=== PATIENT | female | born 1930 | race Caucasian/White ===

== ENCOUNTER → 2017-02-06 | Outpatient (CLI) | payer MEDICARE | LOC: MW.CHIM 10:46 | PROVIDERS: ATTEND Internal Medicine | DX: R00.2 Palpitations (principal); I42.9 Cardiomyopathy, unspecified; E78.5 Hyperlipidemia, unspecified; E03.9 Hypothyroidism, unspecified | CPT/HCPCS: 99204 ==

== ENCOUNTER → 2017-02-18 | Outpatient (CLI) | payer MEDICARE ==
--- NOTE | 2017-02-20 14:12 | ECHO ---
EXAM DATE: 02/18/17 The echocardiogram report can be seen in this patient's EMR (Electronic Medical Record) in the Reports section. MESFIN
== END ==
LOC: MW.US 09:40
PROVIDERS: ATTEND Internal Medicine
DX: I42.9 Cardiomyopathy, unspecified (principal); R00.2 Palpitations
CPT/HCPCS: 93306

== ENCOUNTER → 2017-02-20 | Outpatient (CLI) | payer MEDICARE ==
--- NOTE | 2017-02-20 11:04 | PCM.PRNOTE ---
- Free Text/Narrative Note: Lexiscan Indication chest pain Patient was supervised today during infusion portion of the stress test. The patient received Regadenoson 0.4 mg IV and nuclear agent using standard protocol. Sestamibi Tm99 25 Mci was gievn afterwards Baseline blood pressure is 132/73 with a heart rate 77 EKG sinus rhythm without ST abnormalities Vital signs at injection: Peak blood pressure 139/65 with a heart rate of 93 Vital signs at 4 minutes post injection: Peak blood pressure 135/70 with a heart rate of 86 EKG sinus rhythm without further ST changes There was ectopic atrial rhythm, and PVCs after injection, and spontaneously converted to sinus rhythm Patient complains of SOB spontaneously resolved Adverse effects from Danette scan none Test done due to end of protocol Impression 1. electrocardiographically nondiagnostic for ischemia due to chemical protocol 2. nuclear imaging pending
--- NOTE | 2017-02-20 14:47 | NM ---
EXAMINATION: Nuclear medicine myocardial perfusion study HISTORY: Cardiomyopathy. PROCEDURE: Following intravenous administration of 0.4 mg of Lexiscan and 25.3 mCi of technetium 99m sestamib i, stress SPECT images including gating imaging was performed. FINDINGS: Stress myocardial SPECT images demonstrates mildly to moderately decreased perfusion along the infe rior wall from the midportion to the base. Review of gated images demonstrates normal wall motion, contractility and wall thickening. The left ventricular ejection fraction is 60 %. The left ventricular chamber size is normal. IMPRESSION: 1. Mildly to moderately decreased uptake within the midportion to base of the inferior wall. Correla te with rest imaging. 2. Normal ventricular chamber size and function with ejection fraction of 60 %.
== END ==
LOC: MW.NM 09:03
PROVIDERS: ATTEND Internal Medicine
DX: I42.9 Cardiomyopathy, unspecified (principal); R07.9 Chest pain, unspecified
CPT/HCPCS: 78451; 93017; A9500; J2785

== ENCOUNTER → 2017-02-21 | Outpatient (CLI) | payer MEDICARE | LOC: MW.CHIM 12:41 | PROVIDERS: ATTEND Internal Medicine | DX: I42.9 Cardiomyopathy, unspecified (principal); I42.8 Other cardiomyopathies | CPT/HCPCS: 36415; 80048; 83880 ==

== ENCOUNTER → 2017-02-27 | Outpatient (CLI) | payer MEDICARE ==
--- NOTE | 2017-03-06 12:11 | NM ---
REPORT ADDENDUM ADDENDUM: Additional imaging was obtained at rest following the administration of 27.1 mCi of technetium 99m labeled sestamibi. FINDINGS/IMPRESSION: The previously demonstrated decreased perfusion along the inferior wall is not as pronounced on rest imaging. However there is less adjacent hepatic activity on the rest imaging. Mild ischemia along the inferior wall towards the base cannot be excluded. Otherwise the perfusion pattern is similar. Wall motion and chamber size are similar with ejection fraction of 61%. Addendum Dictated by: Quinton Alberto MD <Electronically signed by Quinton Alberto MD in [facility]> 03/03/17 0852 8 8 EXAMINATION: Nuclear medicine myocardial perfusion study HISTORY: Cardiomyopathy. PROCEDURE: Following intravenous administration of 0.4 mg of Lexiscan and 25.3 mCi of technetium 99m sestamibi, stress SPECT images including gating imaging was performed. FINDINGS: Stress myocardial SPECT images demonstrates mildly to moderately decreased perfusion along the inferior wall from the midportion to the base. Review of gated images demonstrates normal wall motion, contractility and wall thickening. The left ventricular ejection fraction is 60 %. The left ventricular chamber size is normal. IMPRESSION: 1. Mildly to moderately decreased uptake within the midportion to base of the inferior wall. Correlate with rest imaging. 2. Normal ventricular chamber size and function with ejection fraction of 60 %. Dictated by: Quinton Alberto MD <Electronically signed by Quinton Alberto MD in [facility]> 02/20/17 at 1444 , 1443 144 Doc Number: [id number] Copies To: Paty Mack MD; PCP,None~ MTDD
== END ==
LOC: MW.NM 10:41
PROVIDERS: ATTEND Internal Medicine
DX: I42.9 Cardiomyopathy, unspecified (principal); R53.83 Other fatigue; R00.2 Palpitations; I10 Essential (primary) hypertension
CPT/HCPCS: 78451; 78451-26; G0463

== ENCOUNTER 2017-03-08 01:15 | Emergency (ER) | payer MEDICARE ==
[2017-03-08 01:27] VITALS: BP 140/77
--- NOTE | 2017-03-08 02:11 | EDM.PDOC ---
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 As it has some edema to his recent start on Lasix. She is taking the Lasix as she was concerned her potassium might below as a she drank some Gatorade. Patient has no skin changes no rash. No asymmetry of the legs. No fall or injury no acute joint pain. No fevers chills sweats or shaking chills. Patient otherwise feels well] Review of systems: As per history of present illness and below otherwise all systems reviewed and negative. Past medical history: As per history of present illness and as reviewed below otherwise noncontributory. Surgical history: As per history of present illness and as reviewed below otherwise noncontributory. Social history: No reported history of drug or alcohol abuse. Family history: As per history of present illness and as reviewed below otherwise noncontributory. Physical exam: HEENT: Normocephalic, atraumatic, pupils normal and symmetrical, supple neck, no meningismus, normal color Lungs: Normal and symmetrical chest wall excursion bilateral with no tachypnea or increased work of breathing, grossly normal chest exam Heart: No tachycardia in triage Abdomen: Normal-appearing, nondistended, no visible mass or asymmetry Pelvis: Normal-appearing Genitourinary: Deferred Rectal exam: Deferred Extremities: Atraumatic, normal use and range of motion, no visible evidence of gross neurovascular compromise Neuro: Awake, alert, oriented. Normal and appropriate mental status. Cranial nerves grossly unremarkable. Motor function normal. Nonfocal neurologic exam. Diagnostics: [Doppler bilateral lower extremities to rule out DVT] Basic metabolic panel pending to rule out electrolyte abnormality Therapeutics: [] Impression: [Bilateral leg pain. Chronic arthralgias] Plan: [Signs and symptoms consistent with exacerbation of chronic arthritis in a well- appearing patient is smiling perfectly groomed laughing and comfortable appearing. Her hair is perfectly coiffed. Patient is very social and gregarious smiling and laughing on exam. She has mild soft tissue tenderness in both calves but there is no asymmetry cords or skin changes. Baseline edema per patient, for which he is on Lasix. Doppler pending to rule out less likely possibility of DVT and basic met pending to rule out electrolyte abnormality. If unremarkable patient agrees with outpatient followup and strict return precautions will be given Definitive disposition and diagnosis as appropriate pending reevaluation and review of above. Bilateral Knee Pain Score (Numeric/FACES): 4 Right Shoulder Pain Score (Numeric/FACES): 4 - Related Data Allergies Allergy/AdvReac Type Severity Reaction Status Date / Time acetaminophen Allergy Cannot Verified 08/26/14 17:06 [From Darvocet-N 100] Remember azithromycin Allergy Dizziness Verified 03/08/17 01:27 cephalexin [Cephalexin] Allergy Cannot Verified 03/08/17 01:27 Remember fexofenadine Allergy Cannot Verified 03/08/17 01:27 Remember levofloxacin [From Levaquin] Allergy Cannot Verified 03/08/17 01:27 Remember lisinopril Allergy Cough Verified 03/08/17 01:27 methylprednisolone Allergy Other Verified 03/08/17 01:27 metoprolol Allergy Dizziness Verified 03/08/17 01:27 nitrofurantoin Allergy Other Verified 03/08/17 01:27 pravastatin sodium Allergy Cannot Verified 03/08/17 01:27 [From Pravachol] Remember propoxyphene napsylate Allergy Cannot Verified 03/08/17 01:27 [From Darvocet-N 100] Remember salsalate [Salsalate] Allergy Nausea Verified 08/26/14 17:06 solifenacin succinate Allergy Respiratory Verified 12/11/14 01:34 [From Vesicare] Depression Sulfa (Sulfonamide Allergy Cannot Verified 08/26/14 17:06 Antibiotics) Remember sulfamethoxazole Allergy Cannot Verified 08/26/14 17:06 Remember trimethoprim [From Septra] Allergy Mouth Sores Verified 08/26/14 17:06 Home Meds: Home Meds Aspirin 81 mg PO DAILY 02/21/14 [History] Black Cohosh Root Extract [Black Cohosh] 40 mg PO DAILY 02/21/14 [History] Diclofenac Sodium [Voltaren] 50 mg PO BIDPC 02/21/14 [History] Levothyroxine 150 mcg PO DAILY 02/21/14 [History] Omeprazole 20 mg PO DAILY 02/21/14 [History] atorvaSTATin [Lipitor] 20 mg PO BEDTIME 07/09/14 [History] Amoxicillin 250 cap PO BID 12/11/14 [History] Diltiazem [Cardizem] 180 mg PO DAILY 12/11/14 [History] Hydrochlorothiazide/Olmesartan [Benicar HCT 20-12.5 MG] 25 mg PO DAILY 12/11/14 [History] Metoprolol Succinate 50 mg PO DAILY 12/11/14 [History] Furosemide [Lasix] 20 mg PO DAILY #30 tablet 12/12/14 [Rx] Cranberry Extract [Cranberry] 4,200 mg PO DAILY 03/08/17 [History] Losartan [Cozaar] 25 mg PO DAILY 03/08/17 [History] Solifenacin Succinate [Vesicare] 10 mg PO DAILY 03/08/17 [History] Vit A/Vit C/Vit E/Zinc/Copper [Preservision] 1 tab PO BID 03/08/17 [History] cloNIDine [Catapres] 0.1 mg PO Q12HR PRN 03/08/17 [History] Past Medical History HEENT History: Reports: Impaired vision Other HEENT History: wears glasses Cardiovascular History: Reports: Heart Failure, Hypertension Other Cardiovascular History: CHF Musculoskeletal History: Reports: Osteoarthritis - Infectious Disease History Infectious Disease History: Reports: Chicken pox, Measles, Mumps Social & Family History - Family History Family Medical History: Noncontributory - Tobacco Use Smoking Status *Q: Never Smoker Years of Tobacco use: 40 Packs/Tins Daily: 0.5 Used Tobacco, but Quit: Yes Month Tobacco Last Used: 1989 Second Hand Smoke Exposure: No - Caffeine Use Caffeine Use: Reports: Coffee Caffeine Use Comment: 3cups/day - Alcohol Use Days Per Week of Alcohol Use: 0 - Recreational Drug Use Recreational Drug Use: No ED ROS GENERAL - Review of Systems Review Of Systems: See Below (Per history of present illness) ED EXAM, GENERAL - Physical Exam Exam: See Below (History of present illness) Course - Vital Signs Last Recorded V/S: Last Vital Signs Temp 36.6 C 03/08/17 01:22 Pulse 87 03/08/17 01:22 Resp 20 03/08/17 01:22 BP 140/77 03/08/17 01:22 Pulse Ox 95 03/08/17 01:22 - Orders/Labs/Meds Orders: Active Orders 24 hr Category Date Time Status Venous Doppler Lwr Ext Bi [US] Stat Exams 03/08/17 02:03 Taken Labs: Laboratory Tests 03/08/17 Range/Units 02:20 Sodium 135 L (136-146) mmol/L Potassium 3.4 L (3.5-5.1) mmol/L Chloride 99 (98-110) mmol/L Carbon Dioxide 24 (21-31) mmol/L BUN 23 (6.0-23.0) mg/dL Creatinine 0.9 (0.6-1.5) mg/dL Est Cr Clr Drug Dosing 32.23 mL/min Estimated GFR (MDRD) 59.4 ml/min Glucose 114 H (60-110) mg/dL Calcium 9.0 (8.8-10.8) mg/dL Meds: Medications Discontinued Medications Generic Name Dose Route Start Last Admin Trade Name Freq PRN Reason Stop Dose Admin Ibuprofen 600 mg 03/08/17 03:51 03/08/17 04:00 Motrin PO 03/08/17 03:52 600 mg ONETIME ONE Administration Potassium Chloride 40 meq 03/08/17 03:33 03/08/17 04:00 Klor-Con M20 PO 03/08/17 03:34 40 meq ONETIME ONE Administration Departure - Departure Time of Disposition: 04:01 Disposition: Home, Self-Care 01 Condition: good Clinical Impression: Chronic arthralgias of knees and hips, Lower extremity pain, Lower extremity edema Instructions: Joint Pain, Peripheral Edema Referrals: Isadora Cuba DO [Primary Care Provider] - Forms: ED Department Discharge Additional Instructions: You have mild edema of your legs which you've had before and for which you're prescribed Lasix. Electrolytes were unremarkable today. You do not have a blood clot in either leg. Rest and elevate your legs whenever possible. Continue Lasix as prescribed. Your potassium was slightly low today and begin he is single supplemental dose by mouth. Take ibuprofen as needed for joint aches and followup with your tomorrow. Return immediately for new severe or worsening symptoms. - My Orders Last 24 Hours: My Active Orders 03/08/17 02:03 Venous Doppler Lwr Ext Bi [US] Stat - Assessment/Plan Last 24 Hours: My Active Orders 03/08/17 02:03 Venous Doppler Lwr Ext Bi [US] Stat
[2017-03-08] MEDS ORDERED: Potassium Chloride 20 MEQ Tab.ER PO ONE (03:33)
[2017-03-08] MEDS ORDERED: Ibuprofen 600 MG Tab PO ONE (03:51)
--- NOTE | 2017-03-10 16:14 | US ---
EXAM DATE: 03/08/17 PATIENT'S AGE: 86 Patient: MAIDA ANDERSEN Facility: [place], [place] Site . Site : [id number] Study: US Extremity Venous BILAT [id number]/6/2017 3:18:48 AM Ordering Physician: Doctor Clements Final Report: INDICATION: BILAT LEG PAIN LEFT GREATER THAN RIGHT TECHNIQUE: Ultrasound venous duplex lower extremity bilateral. Compression venous exam was performed using melton scale, color Doppler, and spectral Doppler imaging. COMPARISON: None. FINDINGS: Sonographic imaging demonstrates the common femoral, deep femoral, superficial femoral, popliteal, posterior tibial and greater saphenous veins to be fully compressible with normal color Doppler blood flow in both lower extremities. IMPRESSION: Normal bilateral lower extremity venous ultrasound, no sign of deep venous thrombosis. Dictated by: Lg Domingo MD @ 03/08/2017 03:25:27 (Electronic Signature) Report Signed by Proxy. MESFIN
== END 2017-03-08 04:03 | disposition home or self-care (01) ==
LOC: MW.ED 01:15
DX: M25.562 Pain in left knee (principal); M25.552 Pain in left hip; M25.551 Pain in right hip; M25.561 Pain in right knee; G89.29 Other chronic pain; R60.0 Localized edema; I11.0 Hypertensive heart disease with heart failure; I50.9 Heart failure, unspecified; Z88.8 Allergy status to other drugs, medicaments and biological substances; Z79.82 Long term (current) use of aspirin; Z88.2 Allergy status to sulfonamides; Z88.1 Allergy status to other antibiotic agents; Z88.6 Allergy status to analgesic agent; Z79.899 Other long term (current) drug therapy
CPT/HCPCS: 36415; 80048; 93970; 99283; A9270

== ENCOUNTER → 2017-03-19 | Outpatient (CLI) | payer MEDICARE | LOC: MW.CHIM 08:00 | PROVIDERS: ATTEND Internal Medicine | DX: I42.9 Cardiomyopathy, unspecified (principal); E78.5 Hyperlipidemia, unspecified; I10 Essential (primary) hypertension | CPT/HCPCS: 99214 ==

== ENCOUNTER 2017-09-22 18:12 | Emergency (ER) | payer MEDICARE ==
--- NOTE | 2017-09-22 18:40 | EDM.PDOC ---
ED HPI GENERAL MEDICAL PROBLEM - General Chief Complaint: Genitourinary Problem Stated Complaint: PT HAS UTI Time Seen by Provider: 09/22/17 18:16 Source of Information: Reports: Patient History Limitations: Reports: No Limitations - History of Present Illness INITIAL COMMENTS - FREE TEXT/NARRATIVE: HISTORY AND PHYSICAL: History of present illness: Patient is a 87-year-old female who is brought to the emergency room by her son with complaints of dysuria, back pain, nausea, vomiting and decreased appetite as 24 hours. Patient has a long-standing history of UTIs which she is on a long- standing antibiotic. She reports one month ago she was in [place] and the provider took her off her antibiotic, reporting she was building resistance. Patient states that her symptoms are "spot on" with her normal UTI like symptoms. Review of systems: As per history of present illness and below otherwise all systems reviewed and negative. Past medical history: As per history of present illness and as reviewed below otherwise noncontributory. Surgical history: As per history of present illness and as reviewed below otherwise noncontributory. Social history: No reported history of drug or alcohol abuse. Family history: As per history of present illness and as reviewed below otherwise noncontributory. Physical exam: HEENT: Atraumatic, normocephalic, pupils reactive, negative for conjunctival pallor or scleral icterus, mucous membranes moist, throat clear, neck supple, nontender, trachea midline. Lungs: Clear to auscultation, breath sounds equal bilaterally, chest nontender. Heart: S1S2, regular, negative for clicks, rubs, or JVD. Abdomen: Soft, nondistended, suprapubic tenderness. Negative for masses or hepatosplenomegaly. Negative for costovertebral tenderness. Pelvis: Stable nontender. Genitourinary: Deferred. Rectal: Deferred. Extremities: Atraumatic, negative for cords or calf pain. Neurovascular unremarkable. Neuro: Awake, alert, oriented. Cranial nerves II through XII unremarkable. Cerebellum unremarkable. Motor and sensory unremarkable throughout. Exam nonfocal. Reviewed her labs with both the patient and the son at the bedside. We discussed treatment options of her pyelonephritis. As she does have a fever, elevated white count and nausea/vomiting I would like to keep the patient for observation and IV antibiotics. Currently we do not have any beds available to keep patients at our facility. Patient states she does not want to stay the night here or be transferred to any other facility. Strongly encouraged patient to allow us to transfer to [facility]. We discussed in great length possible risks of going home. She voices understanding and is willing to accept those risks. The son states that he will be in and out of her house frequently over the next couple days to watch her. Diagnostics: CBC, CMP, UA, urine culture Therapeutics: IV fluid and Zofran Impression: Pyelonephritis Plan: 1. You declined admission today. Please have your son come over frequently throughout the next couple days to monitor you. If your symptoms should worsen or not improve please return to the emergency room. 2. You received Zosyn today IV. A prescription has been given to you for Augmentin and Pyridium. It's important that you take these as prescribed and for its entirety. Make sure you are staying well-hydrated and drinking plenty of fluids. 3. Follow-up with your primary caregiver in the next 1-2 days. Return to the ED as needed and as discussed. Definitive disposition and diagnosis as appropriate pending reevaluation and review of above. Duration: Day(s): Location: Reports: Abdomen Back Pain Score (Numeric/FACES): 4 - Related Data Allergies Allergy/AdvReac Type Severity Reaction Status Date / Time acetaminophen Allergy Cannot Verified 08/26/14 17:06 [From Darvocet-N 100] Remember azithromycin Allergy Dizziness Verified 03/08/17 01:27 cephalexin [Cephalexin] Allergy Cannot Verified 03/08/17 01:27 Remember fexofenadine Allergy Cannot Verified 03/08/17 01:27 Remember levofloxacin [From Levaquin] Allergy Cannot Verified 03/08/17 01:27 Remember lisinopril Allergy Cough Verified 03/08/17 01:27 methylprednisolone Allergy Other Verified 03/08/17 01:27 metoprolol Allergy Dizziness Verified 03/08/17 01:27 nitrofurantoin Allergy Other Verified 03/08/17 01:27 pravastatin sodium Allergy Cannot Verified 03/08/17 01:27 [From Pravachol] Remember propoxyphene napsylate Allergy Cannot Verified 03/08/17 01:27 [From Darvocet-N 100] Remember salsalate [Salsalate] Allergy Nausea Verified 08/26/14 17:06 solifenacin succinate Allergy Respiratory Verified 12/11/14 01:34 [From Vesicare] Depression Sulfa (Sulfonamide Allergy Cannot Verified 08/26/14 17:06 Antibiotics) Remember sulfamethoxazole Allergy Cannot Verified 08/26/14 17:06 Remember trimethoprim [From Septra] Allergy Mouth Sores Verified 08/26/14 17:06 Home Meds: Home Meds Aspirin 81 mg PO DAILY 02/21/14 [History] Black Cohosh Root Extract [Black Cohosh] 40 mg PO DAILY 02/21/14 [History] Diclofenac Sodium [Voltaren] 50 mg PO BIDPC 02/21/14 [History] Levothyroxine 150 mcg PO DAILY 02/21/14 [History] Diltiazem IR [Cardizem] 180 mg PO DAILY 12/11/14 [History] Hydrochlorothiazide/Olmesartan [Benicar HCT 20-12.5 MG] 25 mg PO DAILY 12/11/14 [History] Metoprolol Succinate 50 mg PO DAILY 12/11/14 [History] Furosemide [Lasix] 20 mg PO DAILY #30 tablet 12/12/14 [Rx] Cranberry Extract [Cranberry] 4,200 mg PO DAILY 03/08/17 [History] Losartan [Cozaar] 25 mg PO DAILY 03/08/17 [History] Vit A/Vit C/Vit E/Zinc/Copper [Preservision] 1 tab PO BID 03/08/17 [History] cloNIDine [Catapres] 0.1 mg PO Q12HR PRN 03/08/17 [History] Past Medical History HEENT History: Reports: Impaired Vision Other HEENT History: wears glasses Cardiovascular History: Reports: Heart Failure, Hypertension Other Cardiovascular History: CHF Musculoskeletal History: Reports: Osteoarthritis - Infectious Disease History Infectious Disease History: Reports: Chicken Pox, Measles, Mumps Social & Family History - Family History Family Medical History: Noncontributory - Tobacco Use Smoking Status *Q: Never Smoker Years of Tobacco use: 40 Packs/Tins Daily: 0.5 Used Tobacco, but Quit: Yes Month Tobacco Last Used: 1989 Second Hand Smoke Exposure: No - Caffeine Use Caffeine Use: Reports: Coffee Caffeine Use Comment: 3cups/day - Alcohol Use Days Per Week of Alcohol Use: 0 - Recreational Drug Use Recreational Drug Use: No ED ROS GENERAL - Review of Systems Review Of Systems: ROS reveals no pertinent complaints other than HPI. ED EXAM, GI/ABD - Physical Exam Exam: See Below (See dictation) Course - Vital Signs Last Recorded V/S: Last Vital Signs Temp 37.5 C 09/22/17 21:20 Pulse 99 09/22/17 21:20 Resp 20 09/22/17 21:20 BP 136/60 09/22/17 21:20 Pulse Ox 88 L 09/22/17 21:20 - Orders/Labs/Meds Orders: Active Orders 24 hr Category Date Time Status RT Aerosol Therapy [RC] ASDIRECTED Care 09/22/17 20:57 Active CULTURE BLOOD [BC] Stat Lab 09/22/17 19:54 Received CULTURE BLOOD [BC] Stat Lab 09/22/17 20:25 Results CULTURE URINE [RM] Stat Lab 09/22/17 20:20 Received Blood Culture x2 Reflex Set [OM.PC] Stat Oth 09/22/17 19:44 Ordered Labs: Laboratory Tests 09/22/17 09/22/17 09/22/17 Range/Units 18:52 18:52 20:20 WBC 18.52 H (4.0-11.0) K/uL RBC 3.80 L (4.30-5.90) M/uL Hgb 12.0 (12.0-16.0) g/dL Hct 35.9 L (36.0-46.0) % MCV 94.5 (80.0-98.0) fL MCH 31.6 (27.0-32.0) pg MCHC 33.4 (31.0-37.0) g/dL RDW Std Deviation 60.1 (28.0-62.0) fl RDW Coeff of Tigre 18 H (11.0-15.0) % Plt Count 213 (150-400) K/uL MPV 9.30 (7.40-12.00) fL Add Manual Diff YES Neutrophils % (Manual) 90 H (48.0-80.0) % Band Neutrophils % 4 % Lymphocytes % (Manual) 3 L (16.0-40.0) % Monocytes % (Manual) 3 (0.0-15.0) % Nucleated RBC % 0.0 /100WBC Absolute Seg Neuts 16.7 H (1.4-5.7) Band Neutrophils # 0.7 Lymphocytes # (Manual) 0.6 (0.6-2.4) Monocytes # (Manual) 0.6 (0.0-0.8) Nucleated RBCs # 0 K/uL Sodium 132 L (136-146) mmol/L Potassium 3.9 (3.5-5.1) mmol/L Chloride 98 (98-110) mmol/L Carbon Dioxide 26 (21-31) mmol/L BUN 18 (6.0-23.0) mg/dL Creatinine 0.8 (0.6-1.5) mg/dL Est Cr Clr Drug Dosing 35.59 mL/min Estimated GFR (MDRD) > 60.0 ml/min Glucose 109 (60-110) mg/dL Calcium 8.9 (8.8-10.8) mg/dL Total Bilirubin 0.9 (0.1-1.5) mg/dL AST 11 (5-40) IU/L ALT 11 (8-54) IU/L Alkaline Phosphatase 116 (40-150) Total Protein 6.2 (6.0-8.0) g/dL Albumin 3.0 L (3.4-4.8) g/dL Globulin 3.2 (2.0-3.5) g/dL Albumin/Globulin Ratio 0.9 L (1.3-2.8) Urine Color YELLOW Urine Appearance SLT CLOUDY Urine pH 6.0 (5.0-8.0) Ur Specific [place] 1.010 (1.001-1.035) Urine Protein NEGATIVE (NEGATIVE) mg/dL Urine Glucose (UA) NEGATIVE (NEGATIVE) mg/dL Urine Ketones NEGATIVE (NEGATIVE) mg/dL Urine Occult Blood MODERATE (NEGATIVE) Urine Nitrite POSITIVE H (NEGATIVE) Urine Bilirubin NEGATIVE (NEGATIVE) Urine Urobilinogen 0.2 (<2.0) EU/dL Ur Leukocyte Esterase MODERATE (NEGATIVE) Urine RBC 1-2 (0-2/HPF) Urine WBC 30-40 (0-5/HPF) Ur Epithelial Cells FEW (NONE-FEW) Urine Bacteria 2+ H (NEGATIVE) Meds: Medications Discontinued Medications Generic Name Dose Route Start Last Admin Trade Name Freq PRN Reason Stop Dose Admin Albuterol 2.5 mg 09/22/17 20:56 09/22/17 21:07 Proventil Neb Soln NEB 09/22/17 20:57 Not Given ONETIME ONE Sodium Chloride 1,000 mls @ 999 mls/hr 09/22/17 18:43 09/22/17 19:29 Normal Saline IV 09/22/17 19:43 999 mls/hr STAT ONE Administration Piperacillin Sod/Tazobactam 50 mls @ 100 mls/hr 09/22/17 21:05 09/22/17 21:19 Sod 3.375 gm/ Sodium Chloride IV 09/22/17 21:34 100 mls/hr ONETIME ONE Administration Ibuprofen 400 mg 09/22/17 21:08 09/22/17 21:28 Motrin PO 09/22/17 21:09 400 mg ONETIME ONE Administration Ketorolac Tromethamine 30 mg 09/22/17 19:43 09/22/17 20:13 Toradol IVPUSH 09/22/17 19:44 30 mg ONETIME ONE Administration Ondansetron HCl 4 mg 09/22/17 18:43 09/22/17 19:29 Zofran IVPUSH 09/22/17 18:44 4 mg ONETIME ONE Administration Departure - Departure Time of Disposition: 21:59 Disposition: Home, Self-Care 01 Clinical Impression: Pyelonephritis - Discharge Information Instructions: Pyelonephritis, Adult, [id number] Referrals: PCP,None [Primary Care Provider] - Forms: ED Department Discharge Additional Instructions: My general discharge The following information is given to patients seen in the emergency department who are being discharged to home. This information is to outline your options for follow-up care. We provide all patients seen in our emergency department with a follow-up referral. The need for follow-up, as well as the timing and circumstances, are variable depending upon the specifics of your emergency department visit. If you don't have a primary care physician on staff, we will provide you with a referral. We always advise you to contact your personal physician following an emergency department visit to inform them of the circumstance of the visit and for follow-up with them and/or the need for any referrals to a consulting specialist. The emergency department will also refer you to a specialist when appropriate. This referral assures that you have the opportunity for follow-up care with a specialist. All of these measure are taken in an effort to provide you with optimal care, which includes your follow-up. Under all circumstances we always encourage you to contact your private physician who remains a resource for coordinating your care. When calling for follow-up care, please make the office aware that this follow-up is from your recent emergency room visit. If for any reason you are refused follow-up, please contact the [facility] Emergency Department at and asked to speak to the emergency department charge nurse. [facility] [address] [place] [id number] 1. You declined admission today. Please have your son come over frequently throughout the next couple days to monitor you. If your symptoms should worsen or not improve please return to the emergency room. 2. You received Zosyn today IV. A prescription has been given to you for Augmentin and Pyridium. It's important that you take these as prescribed and for its entirety. Make sure you are staying well-hydrated and drinking plenty of fluids. 3. Follow-up with your primary caregiver in the next 1-2 days. Return to the ED as needed and as discussed. - My Orders Last 24 Hours: My Active Orders 09/22/17 19:44 Blood Culture x2 Reflex Set [OM.PC] Stat 09/22/17 19:54 CULTURE BLOOD [BC] Stat 09/22/17 20:20 CULTURE URINE [RM] Stat 09/22/17 20:25 CULTURE BLOOD [BC] Stat - Assessment/Plan Last 24 Hours: My Active Orders 09/22/17 19:44 Blood Culture x2 Reflex Set [OM.PC] Stat 09/22/17 19:54 CULTURE BLOOD [BC] Stat 09/22/17 20:20 CULTURE URINE [RM] Stat 09/22/17 20:25 CULTURE BLOOD [BC] Stat
[2017-09-22] MEDS ORDERED: Sodium Chloride 0.9% 1,000 ML IV ONE (18:43)
[2017-09-22] MEDS ORDERED: Ondansetron 4 MG/2 ML SDV IVPUSH ONE (18:43)
[2017-09-22] MEDS ORDERED: Ketorolac 30 MG/ML SDV IVPUSH ONE (19:43)
[2017-09-22 19:47] LABS: CHLORIDE,CL 98 mmol/L (98-110); SODIUM,NA 132 mmol/L (136-146)
[2017-09-22] MEDS ORDERED: Albuterol 0.083% 2.5 MG/3 ML Neb Soln NEB ONE (20:56)
[2017-09-22] MEDS ORDERED: Piperacillin/Tazobactam 3.375 GM in Sodium Chloride 0.9% 50 ML IV ONE (21:05)
[2017-09-22] MEDS ORDERED: Ibuprofen 400 MG Tab PO ONE (21:08)
[2017-09-22 22:20] VITALS: BP 117/77
== END 2017-09-22 22:05 | disposition home or self-care (01) ==
LOC: MW.ED 18:12
DX: N12 Tubulo-interstitial nephritis, not specified as acute or chronic (principal); I11.0 Hypertensive heart disease with heart failure; I50.9 Heart failure, unspecified; Z88.1 Allergy status to other antibiotic agents; Z88.8 Allergy status to other drugs, medicaments and biological substances; Z88.2 Allergy status to sulfonamides; Z79.82 Long term (current) use of aspirin; Z79.899 Other long term (current) drug therapy; Z87.891 Personal history of nicotine dependence
CPT/HCPCS: 36415; 80053; 81001; 85025; 87040; 87086; 87186; 96361; 96365; 96375; 99284; A9270; J1885; J2405; J2543; J7040; J7050; 87077; 87088

== ENCOUNTER 2017-09-23 17:27 | Inpatient (IN) | payer MEDICARE ==
--- NOTE | 2017-09-23 19:35 | PCM.HP ---
H&P History of Present Illness - General Date of Service: 09/23/17 Source of Information: Patient, Old Records History Limitations: Reports: No Limitations - History of Present Illness Initial Comments - Free Text/Narative: Patient 87 years old female with past medical Hx of frequent UTI presented to Emergency Room yesterday due to dysuria , fever , chills , flank pain. In ER patient was found to have pyelonephritis and it was recommended patient admission ,but because there were no beds available patient needed transfer. She did not wanted to go to another facility and after she was given one dose of IV antibiotics she was discharged home with po Augmentin. Her symptoms improved today , her urine culture grew gram negative rods and patient was called home to come back to hospital for Iv antib treatment. Onset of Symptoms: Reports: Sudden Duration of Symptoms: Reports: Hour(s): Location: Reports: Abdomen, Pelvis Quality: Reports: Dull - Related Data Allergies/Adverse Reactions: Allergies Allergy/AdvReac Type Severity Reaction Status Date / Time acetaminophen Allergy Cannot Verified 08/26/14 17:06 [From Darvocet-N 100] Remember azithromycin Allergy Dizziness Verified 03/08/17 01:27 cephalexin [Cephalexin] Allergy Cannot Verified 03/08/17 01:27 Remember fexofenadine Allergy Cannot Verified 03/08/17 01:27 Remember levofloxacin [From Levaquin] Allergy Cannot Verified 03/08/17 01:27 Remember lisinopril Allergy Cough Verified 03/08/17 01:27 methylprednisolone Allergy Other Verified 03/08/17 01:27 metoprolol Allergy Dizziness Verified 03/08/17 01:27 nitrofurantoin Allergy Other Verified 03/08/17 01:27 pravastatin sodium Allergy Cannot Verified 03/08/17 01:27 [From Pravachol] Remember propoxyphene napsylate Allergy Cannot Verified 03/08/17 01:27 [From Darvocet-N 100] Remember salsalate [Salsalate] Allergy Nausea Verified 08/26/14 17:06 solifenacin succinate Allergy Respiratory Verified 12/11/14 01:34 [From Vesicare] Depression Sulfa (Sulfonamide Allergy Cannot Verified 08/26/14 17:06 Antibiotics) Remember sulfamethoxazole Allergy Cannot Verified 08/26/14 17:06 Remember trimethoprim [From Septra] Allergy Mouth Sores Verified 08/26/14 17:06 Home Medications: Home Meds Aspirin 81 mg PO DAILY 02/21/14 [History] Black Cohosh Root Extract [Black Cohosh] 40 mg PO DAILY 02/21/14 [History] Diclofenac Sodium [Voltaren] 50 mg PO BIDPC 02/21/14 [History] Levothyroxine 150 mcg PO DAILY 02/21/14 [History] Diltiazem IR [Cardizem] 180 mg PO DAILY 12/11/14 [History] Metoprolol Succinate 50 mg PO DAILY 12/11/14 [History] Losartan [Cozaar] 25 mg PO DAILY 03/08/17 [History] cloNIDine [Catapres] 0.1 mg PO Q12HR PRN 03/08/17 [History] Solifenacin Succinate [Vesicare] 10 mg PO DAILY 09/23/17 [History] atorvaSTATin [Lipitor] 20 mg PO BEDTIME 09/23/17 [History] Past Medical History HEENT History: Reports: Impaired Vision Other HEENT History: wears glasses Cardiovascular History: Reports: Heart Failure, Hypertension Other Cardiovascular History: CHF Respiratory History: Reports: None Gastrointestinal History: Reports: None Genitourinary History: Reports: None DIE CAST 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: Reports: None Musculoskeletal History: Reports: Osteoarthritis Neurological History: Reports: None Psychiatric History: Reports: None Endocrine/Metabolic History: Reports: Hypothyroidism Hematologic History: Reports: None Immunologic History: Reports: None Oncologic (Cancer) History: Reports: None Dermatologic History: Reports: None - Infectious Disease History Infectious Disease History: Reports: Chicken Pox, Measles - Past Surgical History Head Surgeries/Procedures: Reports: None Respiratory Surgical History: Reports: None GI Surgical History: Reports: None Female Surgical History: Reports: None Endocrine Surgical History: Reports: None Neurological Surgical History: Reports: None Musculoskeletal Surgical History: Reports: None Oncologic Surgical History: Reports: None Dermatological Surgical History: Reports: None Social & Family History - Family History Family Medical History: Noncontributory - Tobacco Use Smoking Status *Q: Never Smoker Years of Tobacco use: 40 Packs/Tins Daily: 0.5 Used Tobacco, but Quit: Yes Month Tobacco Last Used: 1989 Second Hand Smoke Exposure: No - Caffeine Use Caffeine Use: Reports: Coffee Caffeine Use Comment: 3cups/day - Alcohol Use Days Per Week of Alcohol Use: 0 - Recreational Drug Use Recreational Drug Use: No H&P Review of Systems - Review of Systems: Review Of Systems: See Below General: Reports: Fever, Chills, Weakness HEENT: Reports: No Symptoms Pulmonary: Reports: No Symptoms Cardiovascular: Reports: No Symptoms Gastrointestinal: Reports: No Symptoms Exam - Exam Exam: See Below - Vital Signs Vital Signs: Last Vital Signs Temp 97.7 F 09/23/17 18:27 Pulse 74 09/23/17 18:27 Resp 16 09/23/17 18:27 BP 122/56 L 09/23/17 18:27 Pulse Ox Weight: 129 lb 6.4 oz - Exam General: Alert, Oriented HEENT: Conjunctiva Clear, EOMI, Hearing Intact, Normal Nasal Septum Neck: Supple, Trachea Midline. No: JVD Lungs: Clear to Auscultation Cardiovascular: Regular Rate, Regular Rhythm, Normal S1, Normal S2, Diastolic Murmur GI/Abdominal Exam: Normal Bowel Sounds, Soft, Non-Tender, No Organomegaly, No Distention, No Abnormal Bruit Back Exam: CVA Tenderness (L) (more on the left), CVA Tenderness (R) Extremities: Normal Inspection Skin: Warm Neurological: Cranial Nerves Intact Psychiatric: Alert, Normal Affect - Patient Data Result Diagrams: 09/24/17 07:34 09/24/17 07:34 *Q Meaningful Use (ADM) - VTE *Q VTE Criteria *Q: - Stroke *Q Stroke Criteria *Q: - AMI *Q AMI Criteria *Q: - Problem List (1) Pyelonephritis SNOMED Code(s): 87772835 ICD Code: N12 - TUBULO-INTERSTITIAL NEPHRITIS, NOT SPCF ACUTE OR CHRONIC Status: Acute Current Visit: No (2) Hypothyroidism SNOMED Code(s): 14790647 ICD Code: E03.9 - HYPOTHYROIDISM, UNSPECIFIED Status: Chronic Current Visit: Yes (3) HTN, Essential hypertension SNOMED Code(s): 97588861 ICD Code: I10 - ESSENTIAL (PRIMARY) HYPERTENSION Status: Chronic Current Visit: No (4) Coffee ground emesis SNOMED Code(s): 721226286 ICD Code: K92.0 - HEMATEMESIS Status: Acute Current Visit: Yes Problem List Initiated/Reviewed/Updated: Yes Assessment/Plan Comment:: A/p 1) pyelonephritis - will start patient on Zosyn Iv 2.25 grams q 6 h , f/up urine culture final results and the sensitivity , iv fluids, f/up patient clinically , f/up WBC , f/up temperature 3)Coffee ground vomiting- d/c aspirin , no heparin, d/c diclofenac, protonix 40 mg iv q12h , Gi referral for endoscopy, monitor hb/ht 3)Hypothyroidism-will continue patient with levothyroxine 150 mcg q daily 4) HTN - controlled- cont current Bp meds( metoprolol xl 50 mg po daily , Cozaar , Clonidine, diltiazem) 4)HLP - continue atorvastatin 20 mg po daily 5)DVT prof:SCD
[2017-09-23] MEDS ORDERED: Sodium Chloride 0.9% 2.5 ML Syringe FLUSH PRN (20:01)
[2017-09-23] MEDS ORDERED: Sodium Chloride 0.9% 10 ML Syringe FLUSH PRN (20:01)
[2017-09-23] MEDS ORDERED: cloNIDine 0.1 MG Tab PO PRN (20:11)
[2017-09-23] MEDS: Piperacillin/Tazobactam 2.25 GM in Sodium Chloride 0.9% 100 ML IV SCH (20:49)
[2017-09-23] MEDS ORDERED: Heparin Sodium 5,000 Units/ML Vial SUBCUT SCH (21:00)
[2017-09-23] MEDS: atorvaSTATin 20 MG Tab PO SCH (21:01)
[2017-09-23 21:02] LABS: CHLORIDE,CL 100 mmol/L (98-110); SODIUM,NA 133 mmol/L (136-146)
[2017-09-23] MEDS: Sodium Chloride 0.45% 1,000 ML IV SCH (21:11)
[2017-09-23] MEDS: Pantoprazole 40 MG Vial IVPUSH SCH (21:18)
[2017-09-24] MEDS: Acetaminophen 325 MG Tab PO PRN (00:14)
[2017-09-24] MEDS: Piperacillin/Tazobactam 2.25 GM in Sodium Chloride 0.9% 100 ML IV SCH (02:50)
[2017-09-24] MEDS: Levothyroxine 150 MCG Tab PO SCH (06:33)
--- NOTE | 2017-09-24 07:29 | PCM.PN ---
- General Info Date of Service: 09/24/17 Admission Dx/Problem (Free Text): Pyelonephritis Subjective Update: Sitting up in chair this morning, eating breakfast. Denies chest pain or SOB. Has some L flank and L abdominal pain, Tylenol helps the pain. Feeling ok, a little malaise. Functional Status: Reports: Pain Controlled, Tolerating Diet, Ambulating, Urinating - Review of Systems General: Reports: Fatigue, Malaise HEENT: Denies: Headaches, Sore Throat Pulmonary: Reports: No Symptoms. Denies: Shortness of Breath, Cough, Sputum Cardiovascular: Reports: No Symptoms. Denies: Chest Pain, Edema Gastrointestinal: Reports: Abdominal Pain. Denies: Melena, Nausea, Vomiting Genitourinary: Reports: Frequency Neurological: Reports: No Symptoms. Denies: Confusion Psychiatric: Reports: No Symptoms. Denies: Confusion, Anxiety - Patient Data Vitals - Most Recent: Last Vital Signs Temp 99.7 F 09/24/17 04:00 Pulse 78 09/24/17 04:00 Resp 18 09/24/17 04:00 BP 116/54 L 09/24/17 04:00 Pulse Ox 93 L 09/24/17 04:00 Weight - Most Recent: 58.5 kg I&O - Last 24 Hours: Intake & Output 09/23/17 09/24/17 09/24/17 22:59 06:59 14:59 Intake Total 1028 Output Total 1250 Balance -222 Lab Results Last 24 Hours: Laboratory Results - last 24 hr 09/23/17 09/23/17 Range/Units 20:25 20:25 WBC 19.97 H (4.0-11.0) K/uL RBC 3.59 L (4.30-5.90) M/uL Hgb 11.3 L (12.0-16.0) g/dL Hct 33.9 L (36.0-46.0) % MCV 94.4 (80.0-98.0) fL MCH 31.5 (27.0-32.0) pg MCHC 33.3 (31.0-37.0) g/dL RDW Std Deviation 60.0 (28.0-62.0) fl RDW Coeff of Tigre 17 H (11.0-15.0) % Plt Count 195 (150-400) K/uL MPV 10.10 (7.40-12.00) fL Neut % (Auto) 91.7 H (48.0-80.0) % Lymph % (Auto) 3.4 L (16.0-40.0) % [place] % (Auto) 3.8 (0.0-15.0) % Eos % (Auto) 1.0 (0.0-7.0) % Baso % (Auto) 0.1 (0.0-1.5) % Neut # (Auto) 18.3 H (1.4-5.7) K/uL Lymph # (Auto) 0.7 (0.6-2.4) K/uL [place] # (Auto) 0.8 (0.0-0.8) K/uL Eos # (Auto) 0.2 (0.0-0.7) K/uL Baso # (Auto) 0.0 (0.0-0.1) K/uL Nucleated RBC % 0.0 /100WBC Nucleated RBCs # 0 K/uL Sodium 133 L (136-146) mmol/L Potassium 4.3 (3.5-5.1) mmol/L Chloride 100 (98-110) mmol/L Carbon Dioxide 24 (21-31) mmol/L BUN 19 (6.0-23.0) mg/dL Creatinine 0.8 (0.6-1.5) mg/dL Est Cr Clr Drug Dosing 35.59 mL/min Estimated GFR (MDRD) > 60.0 ml/min Glucose 94 (60-110) mg/dL Calcium 8.6 L (8.8-10.8) mg/dL Total Bilirubin 0.5 (0.1-1.5) mg/dL AST 9 (5-40) IU/L ALT 10 (8-54) IU/L Alkaline Phosphatase 114 (40-150) Total Protein 6.0 (6.0-8.0) g/dL Albumin 2.8 L (3.4-4.8) g/dL Globulin 3.2 (2.0-3.5) g/dL Albumin/Globulin Ratio 0.9 L (1.3-2.8) Med Orders - Current: Current Medications Acetaminophen (Tylenol) 650 mg PO Q4H PRN PRN Reason: Pain (Mild 1-3)/fever Last Admin: 09/24/17 00:14 Dose: 650 mg Albuterol (Proventil Neb Soln) 2.5 mg NEB Q2H PRN PRN Reason: Shortness Of Breath/wheezing Aspirin (Aspirin) 81 mg PO DAILY [facility] Atorvastatin Calcium (Lipitor) 20 mg PO BEDTIME [facility] Last Admin: 09/23/17 21:01 Dose: 20 mg Clonidine HCl (Catapres) 0.1 mg PO Q12HR PRN PRN Reason: Hypertension Diclofenac Sodium (Voltaren) 50 mg PO BIDMEALS [facility] Diltiazem HCl (Cardizem Cd) 180 mg PO DAILY [facility] Piperacillin Sod/Tazobactam (Sod 2.25 gm/ Sodium Chloride) 100 mls @ 25 mls/hr IV Q6H [facility] Last Admin: 09/24/17 02:50 Dose: 25 mls/hr Sodium Chloride (Sodium Chloride 0.45%) 1,000 mls @ 75 mls/hr IV ASDIRECTED [facility] Last Admin: 09/23/17 21:11 Dose: 75 mls/hr Levothyroxine Sodium (Levothyroxine) 150 mcg PO DAILY@0700 [facility] Last Admin: 09/24/17 06:33 Dose: 150 mcg Losartan Potassium (Cozaar) 25 mg PO DAILY [facility] Metoprolol Succinate (Toprol Xl) 50 mg PO DAILY [facility] Pantoprazole Sodium (Protonix Iv) 40 mg IVPUSH BID [facility] Last Admin: 09/23/17 21:18 Dose: 40 mg Vesicare 10 Mg 1 each PO DAILY [facility] Sodium Chloride (Saline Flush) 10 ml FLUSH ASDIRECTED PRN PRN Reason: Keep Vein Open Sodium Chloride (Saline Flush) 2.5 ml FLUSH ASDIRECTED PRN PRN Reason: Keep Vein Open Discontinued Medications Heparin Sodium (Porcine) (Heparin Sodium) 5,000 units SUBCUT Q12HR [facility] Last Admin: 09/23/17 22:10 Dose: Not Given - Exam General: Alert, Oriented, Cooperative, No Acute Distress Lungs: Clear to Auscultation, Normal Respiratory Effort Cardiovascular: Regular Rate, Regular Rhythm GI/Abdominal Exam: Normal Bowel Sounds, Soft, No Organomegaly, No Distention, No Abnormal Bruit, No Mass, Pelvis Stable, Tender (LUQ and L flank) Back Exam: CVA Tenderness (L) Extremities: Normal Inspection, Normal Range of Motion, Non-Tender, Normal Capillary Refill, Pedal Edema (scant ) Neurological: No New Focal Deficit Psy/Mental Status: Alert, Normal Affect, Normal Mood - Problem List & Annotations (1) Pyelonephritis SNOMED Code(s): 40228983 Code(s): N12 - TUBULO-INTERSTITIAL NEPHRITIS, NOT SPCF ACUTE OR CHRONIC Status: Acute Current Visit: No (2) Gram-negative bacteremia SNOMED Code(s): 250465243447 Code(s): R78.81 - BACTEREMIA Status: Acute Current Visit: Yes (3) CHF, Congestive heart failure SNOMED Code(s): 77468251 Code(s): I50.9 - HEART FAILURE, UNSPECIFIED Status: Chronic Current Visit : No (4) HTN, Essential hypertension SNOMED Code(s): 02531539 Code(s): I10 - ESSENTIAL (PRIMARY) HYPERTENSION Status: Chronic Current Visit: No (5) Hypothyroidism SNOMED Code(s): 68995706 Code(s): E03.9 - HYPOTHYROIDISM, UNSPECIFIED Status: Chronic Current Visit: Yes - Problem List Review Problem List Initiated/Reviewed/Updated: Yes - My Orders Last 24 Hours: My Active Orders 09/24/17 07:19 BMP [BASIC METABOLIC PANEL,BMP] [CHEM] Routine CBC WITH AUTO DIFF [HEME] Routine - Plan Plan:: This 87 year old female admitted with gram neg chucky bacteremia and pyelonephritis. 1. Pyelonephritis: Likely source of gram negative chucky bacteremia. BC still pending. UC returns with Klebsiella pneumoniae, sensitive to Zosyn, patient does not tolerate many antibiotics due to allergies. Will continue Zosyn for now. Leukocytosis improved to 15,450 today. Will await BC results. 2. HTN: Stable. Continue home medications 3. CHF: Stable Monitor weight closely. No c/o of SOB or edema. Continue home medications. VTE prophylaxis: SCDs only for now. Dispo: 2-3 days pending improvement and culture.
[2017-09-24] MEDS ORDERED: Diclofenac Sodium 50 MG Tab.EC PO SCH (08:00)
[2017-09-24 08:06] LABS: CHLORIDE,CL 102 mmol/L (98-110); SODIUM,NA 134 mmol/L (136-146)
[2017-09-24] MEDS: Piperacillin/Tazobactam 2.25 GM in Sodium Chloride 0.9% 50 ML IV SCH ×3 (08:38→20:49)
[2017-09-24] MEDS: Losartan 50 MG Tab PO SCH (08:39)
[2017-09-24] MEDS: Metoprolol Succinate 50 MG Tab.ER PO SCH (08:40)
[2017-09-24] MEDS: Diltiazem 180 MG Cap.CD PO SCH (08:41)
[2017-09-24] MEDS: Pantoprazole 40 MG Vial IVPUSH SCH ×2 (08:41→20:57)
[2017-09-24] MEDS ORDERED: Aspirin 81 MG Tab.Chew PO SCH (09:00)
[2017-09-24] MEDS: Sodium Chloride 0.45% 1,000 ML IV SCH (16:03)
[2017-09-24] MEDS: atorvaSTATin 20 MG Tab PO SCH (20:49)
[2017-09-25] MEDS: Piperacillin/Tazobactam 2.25 GM in Sodium Chloride 0.9% 50 ML IV SCH ×4 (02:36→19:22)
[2017-09-25 05:35] LABS: CHLORIDE,CL 104 mmol/L (98-110); SODIUM,NA 134 mmol/L (136-146)
[2017-09-25] MEDS: Levothyroxine 150 MCG Tab PO SCH (06:43)
[2017-09-25] MEDS: Sodium Chloride 0.45% 1,000 ML IV SCH ×2 (06:43→21:05)
[2017-09-25] MEDS: Pantoprazole 40 MG Vial IVPUSH SCH ×2 (08:44→21:08)
[2017-09-25] MEDS: Metoprolol Succinate 50 MG Tab.ER PO SCH (08:45)
[2017-09-25] MEDS: Losartan 50 MG Tab PO SCH (08:45)
[2017-09-25] MEDS: Diltiazem 180 MG Cap.CD PO SCH (08:49)
[2017-09-25] MEDS: Acetaminophen 325 MG Tab PO PRN (09:13)
[2017-09-25] MEDS ORDERED: Polyethylene Glycol 3350 Powder 17 GM Packet PO ONE (10:52)
[2017-09-25] MEDS ORDERED: Fluconazole 150 MG Tab PO ONE (11:00)
[2017-09-25] MEDS: Docusate Sodium 100 MG Cap PO SCH ×2 (11:41→21:11)
--- NOTE | 2017-09-25 16:21 | PCM.PN ---
- General Info Date of Service: 09/25/17 Admission Dx/Problem (Free Text): Pyelonephritis Subjective Update: Patient symptoms improved , afebrile ., still pain 2/10 in the left flank. Had last BM on . - Review of Systems General: Reports: No Symptoms HEENT: Reports: No Symptoms Pulmonary: Reports: No Symptoms Cardiovascular: Reports: No Symptoms Gastrointestinal: Reports: Constipation Genitourinary: Reports: Flank Pain Musculoskeletal: Reports: No Symptoms Skin: Reports: No Symptoms Neurological: Reports: No Symptoms Psychiatric: Reports: No Symptoms - Patient Data Vitals - Most Recent: Last Vital Signs Temp 99.2 F 09/25/17 12:00 Pulse 80 09/25/17 12:00 Resp 18 09/25/17 12:00 BP 137/97 H 09/25/17 12:00 Pulse Ox 91 L 09/25/17 12:00 Weight - Most Recent: 128 lb 4.944 oz I&O - Last 24 Hours: Intake & Output 09/25/17 09/25/17 09/25/17 06:59 14:59 22:59 Intake Total 150 50 Output Total 2450 Balance -2300 50 Lab Results Last 24 Hours: Laboratory Results - last 24 hr 09/25/17 09/25/17 Range/Units 05:05 05:05 WBC 13.92 H (4.0-11.0) K/uL RBC 3.14 L (4.30-5.90) M/uL Hgb 9.7 L (12.0-16.0) g/dL Hct 29.4 L (36.0-46.0) % MCV 93.6 (80.0-98.0) fL MCH 30.9 (27.0-32.0) pg MCHC 33.0 (31.0-37.0) g/dL RDW Std Deviation 58.1 (28.0-62.0) fl RDW Coeff of Tigre 17 H (11.0-15.0) % Plt Count 157 (150-400) K/uL MPV 9.40 (7.40-12.00) fL Neut % (Auto) 89.1 H (48.0-80.0) % Lymph % (Auto) 3.6 L (16.0-40.0) % [place] % (Auto) 5.4 (0.0-15.0) % Eos % (Auto) 1.8 (0.0-7.0) % Baso % (Auto) 0.1 (0.0-1.5) % Neut # (Auto) 12.4 H (1.4-5.7) K/uL Lymph # (Auto) 0.5 L (0.6-2.4) K/uL [place] # (Auto) 0.8 (0.0-0.8) K/uL Eos # (Auto) 0.3 (0.0-0.7) K/uL Baso # (Auto) 0.0 (0.0-0.1) K/uL Nucleated RBC % 0.0 /100WBC Nucleated RBCs # 0 K/uL Sodium 134 L (136-146) mmol/L Potassium 3.7 (3.5-5.1) mmol/L Chloride 104 (98-110) mmol/L Carbon Dioxide 21 (21-31) mmol/L BUN 12 (6.0-23.0) mg/dL Creatinine 0.8 (0.6-1.5) mg/dL Est Cr Clr Drug Dosing 35.59 mL/min Estimated GFR (MDRD) > 60.0 ml/min Glucose 87 (60-110) mg/dL Calcium 7.9 L (8.8-10.8) mg/dL Vladislav Results Last 24 Hours: Microbiology 09/23/17 20:35 Urine Culture - Final Urine, Voided YEAST Normal Urogenital Ashley Med Orders - Current: Current Medications Acetaminophen (Tylenol) 650 mg PO Q4H PRN PRN Reason: Pain (Mild 1-3)/fever Last Admin: 09/25/17 09:13 Dose: 650 mg Albuterol (Proventil Neb Soln) 2.5 mg NEB Q2H PRN PRN Reason: Shortness Of Breath/wheezing Atorvastatin Calcium (Lipitor) 20 mg PO BEDTIME [facility] Last Admin: 09/24/17 20:49 Dose: 20 mg Clonidine HCl (Catapres) 0.1 mg PO Q12HR PRN PRN Reason: Hypertension Diltiazem HCl (Cardizem Cd) 180 mg PO DAILY [facility] Last Admin: 09/25/17 08:49 Dose: 180 mg Docusate Sodium (Colace) 100 mg PO BID [facility] Last Admin: 09/25/17 11:41 Dose: 100 mg Sodium Chloride (Sodium Chloride 0.45%) 1,000 mls @ 75 mls/hr IV ASDIRECTED [facility] Last Admin: 09/25/17 06:43 Dose: 75 mls/hr Piperacillin Sod/Tazobactam (Sod 2.25 gm/ Sodium Chloride) 50 mls @ 100 mls/hr IV Q6H [facility] Last Admin: 09/25/17 14:25 Dose: 100 mls/hr Levothyroxine Sodium (Levothyroxine) 150 mcg PO DAILY@0700 [facility] Last Admin: 09/25/17 06:43 Dose: 150 mcg Losartan Potassium (Cozaar) 100 mg PO DAILY [facility] Metoprolol Succinate (Toprol Xl) 50 mg PO DAILY [facility] Last Admin: 09/25/17 08:45 Dose: 50 mg Pantoprazole Sodium (Protonix Iv) 40 mg IVPUSH BID [facility] Last Admin: 09/25/17 08:44 Dose: 40 mg Vesicare 10 Mg 1 each PO DAILY [facility] Last Admin: 09/25/17 08:52 Dose: Not Given Sodium Chloride (Saline Flush) 10 ml FLUSH ASDIRECTED PRN PRN Reason: Keep Vein Open Sodium Chloride (Saline Flush) 2.5 ml FLUSH ASDIRECTED PRN PRN Reason: Keep Vein Open Discontinued Medications Aspirin (Aspirin) 81 mg PO DAILY [facility] Last Admin: 09/24/17 08:40 Dose: 81 mg Diclofenac Sodium (Voltaren) 50 mg PO BIDMEALS [facility] Last Admin: 09/24/17 08:41 Dose: 50 mg Fluconazole (Diflucan) 150 mg PO ONETIME ONE Stop: 09/25/17 11:01 Last Admin: 09/25/17 11:41 Dose: 150 mg Heparin Sodium (Porcine) (Heparin Sodium) 5,000 units SUBCUT Q12HR [facility] Last Admin: 09/23/17 22:10 Dose: Not Given Piperacillin Sod/Tazobactam (Sod 2.25 gm/ Sodium Chloride) 100 mls @ 25 mls/hr IV Q6H [facility] Last Infusion: 09/24/17 06:50 Dose: Infused Losartan Potassium (Cozaar) 25 mg PO DAILY [facility] Last Admin: 09/25/17 08:45 Dose: 25 mg Polyethylene Glycol (Miralax) 17 gm PO ONETIME ONE Stop: 09/25/17 10:53 Last Admin: 09/25/17 11:41 Dose: 17 gm - Exam Quality Assessment: Supplemental Oxygen General: Alert, Oriented HEENT: Pupils Equal Neck: Supple, Trachea Midline, No JVD Lungs: Clear to Auscultation Cardiovascular: Regular Rate, Regular Rhythm GI/Abdominal Exam: Normal Bowel Sounds, Non-Tender Back Exam: Normal Inspection Extremities: Normal Inspection Skin: Warm, Dry Neurological: No New Focal Deficit - Problem List & Annotations (1) Pyelonephritis SNOMED Code(s): 73371410 Code(s): N12 - TUBULO-INTERSTITIAL NEPHRITIS, NOT SPCF ACUTE OR CHRONIC Status: Acute Current Visit: No (2) Hypothyroidism SNOMED Code(s): 18688974 Code(s): E03.9 - HYPOTHYROIDISM, UNSPECIFIED Status: Chronic Current Visit: Yes (3) HTN, Essential hypertension SNOMED Code(s): 64195182 Code(s): I10 - ESSENTIAL (PRIMARY) HYPERTENSION Status: Chronic Current Visit: No (4) Coffee ground emesis SNOMED Code(s): 282335063 Code(s): K92.0 - HEMATEMESIS Status: Acute Current Visit: Yes (5) Constipation SNOMED Code(s): 33519394 Code(s): K59.00 - CONSTIPATION, UNSPECIFIED Status: Acute Current Visit: Yes - Problem List Review Problem List Initiated/Reviewed/Updated: Yes - My Orders Last 24 Hours: My Active Orders 09/25/17 09:26 Losartan [Cozaar] 100 mg PO DAILY 09/25/17 10:52 Consult to Physical Therapy [PT Evaluation and Treatment] [CONS] Routine 09/25/17 10:53 Up With Assistance [RC] ASDIRECTED 09/25/17 11:00 Docusate Sodium [Colace] 100 mg PO BID - Plan Plan:: A/p 1) pyelonephritis - cont. zosyn 2.25 grams q 6 h , diflucam 150 mg po one time 1') constipation- colace 100 mg po Bid , Miralax 30 ml po 1 dose 3)Coffee ground vomiting- d/c aspirin , no heparin, d/c diclofenac, protonix 40 mg iv q12h , Gi referral as outpatient,, no epigastric pain 3)Hypothyroidism-will continue patient with levothyroxine 150 mcg q daily 4) HTN - controlled- cont current Bp meds( metoprolol xl 50 mg po daily , Cozaar , Clonidine, diltiazem) 4)HLP - continue atorvastatin 20 mg po daily 5)DVT prof:SCD
[2017-09-25] MEDS: atorvaSTATin 20 MG Tab PO SCH (21:11)
[2017-09-26] MEDS: Piperacillin/Tazobactam 2.25 GM in Sodium Chloride 0.9% 50 ML IV SCH (01:22)
[2017-09-26] MEDS ORDERED: Ondansetron 4 MG/2 ML SDV IVPUSH PRN (02:23)
[2017-09-26] MEDS: Albuterol 0.083% 2.5 MG/3 ML Neb Soln NEB PRN ×2 (02:45→03:20)
[2017-09-26] MEDS ORDERED: Furosemide 40 MG/4 ML VIAL IVPUSH ONE ×2 (02:57→03:36)
[2017-09-26] MEDS ORDERED: methylPREDNISolone Sodium Succinate 125 MG/2 ML SDV IVPUSH ONE (03:00)
[2017-09-26] MEDS ORDERED: Magnesium Sulfate/Water 2 GM in Premix Bag 1 BAG IV ONE (03:21)
[2017-09-26] MEDS ORDERED: Magnesium Sulfate/Water 50 ML ONE (03:29)
[2017-09-26] MEDS ORDERED: Meropenem 1 GM in Sodium Chloride 0.9% 100 ML IV SCH ×2 (04:00→05:10)
[2017-09-26] MEDS: Meropenem 1 GM in Sodium Chloride 0.9% 100 ML IV SCH ×2 (05:48→18:01)
[2017-09-26 06:11] LABS: CHLORIDE,CL 102 mmol/L (98-110); SODIUM,NA 136 mmol/L (136-146)
[2017-09-26] MEDS: Levothyroxine 150 MCG Tab PO SCH (06:43)
[2017-09-26] MEDS ORDERED: Vancomycin 1.5 GM in Sodium Chloride 0.9% 500 ML IV ONE (07:00)
[2017-09-26] MEDS ORDERED: Potassium Chloride 20 MEQ Tab.ER PO ONE (08:21)
[2017-09-26] MEDS: Pantoprazole 40 MG Vial IVPUSH SCH ×2 (09:28→20:42)
[2017-09-26] MEDS: Metoprolol Succinate 50 MG Tab.ER PO SCH (09:30)
[2017-09-26] MEDS: Losartan 50 MG Tab PO SCH (09:32)
[2017-09-26] MEDS: Docusate Sodium 100 MG Cap PO SCH ×2 (09:32→20:42)
[2017-09-26] MEDS: Diltiazem 180 MG Cap.CD PO SCH (09:37)
--- NOTE | 2017-09-26 14:19 | CR ---
EXAM DATE: 09/23/17 PATIENT'S AGE: 87 Patient: MAIDA ANDERSEN Facility: [place], [place] Site . Site : 1930 Study: XRay Chest [id number]/[id number] 3:27:32 AM Ordering Physician: Pepito Post Final Report: Indication: Oxygen desaturation Technique: Chest 1 view Comparison: December 11, 2014. Findings/Impression: Stable cardiomegaly. There is patchy opacity in the right upper lobe and right lung base concerning for atelectasis or infection. Minimal linear atelectasis or scarring in the left lung base. No significant effusion or pneumothorax. Dictated by Cherie Walker MD @ Sep 26 2017 3:46AM (Electronic Signature) Report Signed by Proxy. MESFIN
--- NOTE | 2017-09-26 17:16 | PCM.PN ---
- General Info Date of Service: 09/26/17 Admission Dx/Problem (Free Text): Patient admitted with pyelonephritis on IV zosyn , developed severe hypoxemia last night and needed 10 liter of oxygen to maintain her O2 above 90 and ambubag. She was given lasix iv and solumedrol 125 mg iv , patient had expiratory wheezes, and CXr showed pneumonia. Functional Status: Reports: Pain Controlled - Review of Systems General: Reports: Fever HEENT: Reports: No Symptoms Pulmonary: Reports: Shortness of Breath, Cough, Wheezing Cardiovascular: Reports: No Symptoms Gastrointestinal: Reports: No Symptoms, Constipation Genitourinary: Reports: No Symptoms Musculoskeletal: Reports: No Symptoms Skin: Reports: No Symptoms Neurological: Reports: No Symptoms Psychiatric: Reports: No Symptoms - Patient Data Vitals - Most Recent: Last Vital Signs Temp 98 F 09/26/17 16:00 Pulse 74 09/26/17 16:00 Resp 18 09/26/17 16:00 BP 124/69 09/26/17 16:00 Pulse Ox 100 09/26/17 16:00 Weight - Most Recent: 128 lb 15.527 oz I&O - Last 24 Hours: Intake & Output 09/26/17 09/26/17 09/26/17 06:59 14:59 22:59 Intake Total 6437 751 4031 Output Total 2150 2025 220 Balance -550 -1075 780 Lab Results Last 24 Hours: Laboratory Results - last 24 hr 09/26/17 09/26/17 09/26/17 Range/Units 04:10 04:59 04:59 WBC 12.60 H (4.0-11.0) K/uL RBC 3.28 L (4.30-5.90) M/uL Hgb 10.1 L (12.0-16.0) g/dL Hct 30.6 L (36.0-46.0) % MCV 93.3 (80.0-98.0) fL MCH 30.8 (27.0-32.0) pg MCHC 33.0 (31.0-37.0) g/dL RDW Std Deviation 57.9 (28.0-62.0) fl RDW Coeff of Tigre 17 H (11.0-15.0) % Plt Count 185 (150-400) K/uL MPV 9.80 (7.40-12.00) fL Neut % (Auto) 95.9 H (48.0-80.0) % Lymph % (Auto) 1.3 L (16.0-40.0) % [place] % (Auto) 2.6 (0.0-15.0) % Eos % (Auto) 0.1 (0.0-7.0) % Baso % (Auto) 0.1 (0.0-1.5) % Neut # (Auto) 12.1 H (1.4-5.7) K/uL Lymph # (Auto) 0.2 L (0.6-2.4) K/uL [place] # (Auto) 0.3 (0.0-0.8) K/uL Eos # (Auto) 0.0 (0.0-0.7) K/uL Baso # (Auto) 0.0 (0.0-0.1) K/uL Nucleated RBC % 0.0 /100WBC Nucleated RBCs # 0 K/uL ABG pH 7.452 H (7.35-7.45) ABG pCO2 31 L (35-45) mmHG ABG pO2 66 L (75-100) mmHG ABG HCO3 22 (22-26) mEq/L ABG Total CO2 19.9 ABG Base Excess -1.7 (-2.0-2.0) Sodium 136 (136-146) mmol/L Potassium 3.4 L (3.5-5.1) mmol/L Chloride 102 (98-110) mmol/L Carbon Dioxide 21 (21-31) mmol/L BUN 9 (6.0-23.0) mg/dL Creatinine 0.8 (0.6-1.5) mg/dL Est Cr Clr Drug Dosing 35.59 mL/min Estimated GFR (MDRD) > 60.0 ml/min Glucose 111 H (60-110) mg/dL Calcium 7.8 L (8.8-10.8) mg/dL Med Orders - Current: Current Medications Acetaminophen (Tylenol) 650 mg PO Q4H PRN PRN Reason: Pain (Mild 1-3)/fever Last Admin: 09/25/17 09:13 Dose: 650 mg Albuterol (Proventil Neb Soln) 2.5 mg NEB Q2H PRN PRN Reason: Shortness Of Breath/wheezing Last Admin: 09/26/17 03:20 Dose: 2.5 mg Atorvastatin Calcium (Lipitor) 20 mg PO BEDTIME [facility] Last Admin: 09/25/17 21:11 Dose: 20 mg Clonidine HCl (Catapres) 0.1 mg PO Q12HR PRN PRN Reason: Hypertension Diltiazem HCl (Cardizem Cd) 180 mg PO DAILY [facility] Last Admin: 09/26/17 09:37 Dose: 180 mg Docusate Sodium (Colace) 100 mg PO BID [facility] Last Admin: 09/26/17 09:32 Dose: 100 mg Meropenem 1 gm/ Sodium (Chloride) 100 mls @ 200 mls/hr IV Q12H [facility] Last Admin: 09/26/17 05:48 Dose: 200 mls/hr Vancomycin HCl 1 gm/ Sodium (Chloride) 250 mls @ 166 mls/hr IV Q24H [facility] Levothyroxine Sodium (Levothyroxine) 150 mcg PO DAILY@0700 [facility] Last Admin: 09/26/17 06:43 Dose: 150 mcg Losartan Potassium (Cozaar) 100 mg PO DAILY [facility] Last Admin: 09/26/17 09:32 Dose: 100 mg Metoprolol Succinate (Toprol Xl) 50 mg PO DAILY [facility] Last Admin: 09/26/17 09:30 Dose: 50 mg Ondansetron HCl (Zofran) 4 mg IVPUSH Q6H PRN PRN Reason: Nausea/Vomiting Last Admin: 09/26/17 03:15 Dose: 4 mg Pantoprazole Sodium (Protonix Iv) 40 mg IVPUSH BID [facility] Last Admin: 09/26/17 09:28 Dose: 40 mg Vesicare 10 Mg 1 each PO DAILY [facility] Last Admin: 09/26/17 11:24 Dose: Not Given Sodium Chloride (Saline Flush) 10 ml FLUSH ASDIRECTED PRN PRN Reason: Keep Vein Open Sodium Chloride (Saline Flush) 2.5 ml FLUSH ASDIRECTED PRN PRN Reason: Keep Vein Open Vancomycin HCl (Pharmacy To Dose - Vancomycin) 0 dose .XX ASDIRECTED [facility] Discontinued Medications Aspirin (Aspirin) 81 mg PO DAILY [facility] Last Admin: 09/24/17 08:40 Dose: 81 mg Diclofenac Sodium (Voltaren) 50 mg PO BIDMEALS [facility] Last Admin: 09/24/17 08:41 Dose: 50 mg Fluconazole (Diflucan) 150 mg PO ONETIME ONE Stop: 09/25/17 11:01 Last Admin: 09/25/17 11:41 Dose: 150 mg Furosemide (Lasix) 40 mg IVPUSH ONETIME ONE Stop: 09/26/17 02:58 Last Admin: 09/26/17 03:08 Dose: 40 mg Furosemide (Lasix) 40 mg IVPUSH NOW ONE Stop: 09/26/17 03:37 Last Admin: 09/26/17 03:37 Dose: 40 mg Heparin Sodium (Porcine) (Heparin Sodium) 5,000 units SUBCUT Q12HR [facility] Last Admin: 09/23/17 22:10 Dose: Not Given Piperacillin Sod/Tazobactam (Sod 2.25 gm/ Sodium Chloride) 100 mls @ 25 mls/hr IV Q6H [facility] Last Infusion: 09/24/17 06:50 Dose: Infused Sodium Chloride (Sodium Chloride 0.45%) 1,000 mls @ 75 mls/hr IV ASDIRECTED [facility] Last Admin: 09/25/17 21:05 Dose: 75 mls/hr Piperacillin Sod/Tazobactam (Sod 2.25 gm/ Sodium Chloride) 50 mls @ 100 mls/hr IV Q6H [facility] Last Admin: 09/26/17 01:22 Dose: 100 mls/hr Magnesium Sulfate 2 gm/ Premix 50 mls @ 50 mls/hr IV ONETIME ONE Stop: 09/26/17 04:20 Last Admin: 09/26/17 03:58 Dose: 50 mls/hr Magnesium Sulfate (Magnesium Sulfate 2 Gm In Water 50 Ml) Confirm Administered Dose 50 mls @ as directed .ROUTE .STK-MED ONE Stop: 09/26/17 03:30 Last Admin: 09/26/17 04:00 Dose: Not Given Meropenem 1 gm/ Sodium (Chloride) 100 mls @ 200 mls/hr IV Q12H [facility] Last Admin: 09/26/17 06:45 Dose: Not Given Meropenem 1 gm/ Sodium (Chloride) 100 mls @ 200 mls/hr IV Q12H [facility] Last Admin: 09/26/17 06:45 Dose: Not Given Vancomycin HCl 1.5 gm/ Sodium (Chloride) 500 mls @ 333.333 mls/hr IV ONETIME ONE Stop: 09/26/17 08:29 Last Admin: 09/26/17 09:41 Dose: 333.333 mls/hr Losartan Potassium (Cozaar) 25 mg PO DAILY [facility] Last Admin: 09/25/17 08:45 Dose: 25 mg Methylprednisolone Sodium Succinate (Solu-Medrol) 125 mg IVPUSH ONETIME ONE Stop: 09/26/17 03:01 Last Admin: 09/26/17 03:11 Dose: 125 mg Polyethylene Glycol (Miralax) 17 gm PO ONETIME ONE Stop: 09/25/17 10:53 Last Admin: 09/25/17 11:41 Dose: 17 gm Potassium Chloride (Klor-Con M20) 40 meq PO ONETIME ONE Stop: 09/26/17 08:22 Last Admin: 09/26/17 09:29 Dose: 40 meq - Exam Quality Assessment: Supplemental Oxygen General: Alert, Oriented, Cooperative HEENT: Pupils Equal, Pupils Reactive Neck: Supple, Trachea Midline, No JVD Lungs: Crackles, Wheezing Cardiovascular: Regular Rate, Regular Rhythm, No Murmurs GI/Abdominal Exam: Normal Bowel Sounds Back Exam: Normal Inspection Extremities: Normal Inspection - Problem List & Annotations (1) Pyelonephritis SNOMED Code(s): 16556464 Code(s): N12 - TUBULO-INTERSTITIAL NEPHRITIS, NOT SPCF ACUTE OR CHRONIC Status: Acute Current Visit: No (2) Hypothyroidism SNOMED Code(s): 44269205 Code(s): E03.9 - HYPOTHYROIDISM, UNSPECIFIED Status: Chronic Current Visit: Yes (3) HTN, Essential hypertension SNOMED Code(s): 29412269 Code(s): I10 - ESSENTIAL (PRIMARY) HYPERTENSION Status: Chronic Current Visit: No (4) Coffee ground emesis SNOMED Code(s): 364776609 Code(s): K92.0 - HEMATEMESIS Status: Acute Current Visit: Yes (5) Constipation SNOMED Code(s): 76748157 Code(s): K59.00 - CONSTIPATION, UNSPECIFIED Status: Acute Current Visit: Yes - Problem List Review Problem List Initiated/Reviewed/Updated: Yes - My Orders Last 24 Hours: My Active Orders 09/25/17 16:23 Notify Provider Consults [RC] ASDIRECTED 09/26/17 02:23 Ondansetron [Zofran] 4 mg IVPUSH Q6H PRN 09/26/17 04:00 Insert Griggs Catheter [Insert Urinary Catheter] [OM.PC] Q24H 09/26/17 04:01 Urinary Catheter Assessment [RC] ASDIRECTED 09/26/17 04:31 CULTURE BLOOD [BC] Stat Blood Culture x2 Reflex Set [OM.PC] Stat 09/26/17 04:45 Vancomycin Pharmacy to Dose [Pharmacy to Dose - Vancomycin] See Dose Instructions .XX ASDIRECTED 09/26/17 04:59 CULTURE BLOOD [BC] Stat 09/26/17 05:00 Meropenem [Merrem] 1 gm Sodium Chloride 0.9% [Normal Saline] 100 ml IV Q12H 09/27/17 08:00 Vancomycin [Vancocin] 1 gm Sodium Chloride 0.9% [Normal Saline] 250 ml IV Q24H - Plan Plan:: A/p Acute respiratory failure hypoxic severe secondary to pneumonia- will d/czosyn and will start patient on Merropenem adjusted to the creatinine cleareance 1) pyelonephritis - start merropenem 1 gram q 12h , d/c zosyn 1') constipation- colace 100 mg po Bid , Miralax 30 ml po 1 dose 3)Coffee ground vomiting- d/c aspirin , no heparin, d/c diclofenac, protonix 40 mg iv q12h , Gi referral as outpatient,, no epigastric pain 3)Hypothyroidism-will continue patient with levothyroxine 150 mcg q daily 4) HTN - controlled- cont current Bp meds( metoprolol xl 50 mg po daily , Cozaar , Clonidine, diltiazem) 4)HLP - continue atorvastatin 20 mg po daily 5)DVT prof:SCD
[2017-09-26] MEDS: atorvaSTATin 20 MG Tab PO SCH (20:42)
[2017-09-27] MEDS: Meropenem 1 GM in Sodium Chloride 0.9% 100 ML IV SCH ×2 (04:04→16:19)
[2017-09-27] MEDS: Levothyroxine 150 MCG Tab PO SCH (06:05)
[2017-09-27] MEDS: Metoprolol Succinate 50 MG Tab.ER PO SCH (08:00)
[2017-09-27] MEDS: Pantoprazole 40 MG Vial IVPUSH SCH ×2 (08:00→20:13)
[2017-09-27] MEDS: Docusate Sodium 100 MG Cap PO SCH ×2 (08:02→20:12)
[2017-09-27] MEDS: Losartan 50 MG Tab PO SCH (08:02)
[2017-09-27] MEDS: Diltiazem 180 MG Cap.CD PO SCH (08:04)
--- NOTE | 2017-09-27 14:29 | PCM.PN ---
- General Info Date of Service: 09/27/17 Admission Dx/Problem (Free Text): Feeling better today , afebrile, OBC Functional Status: Reports: Pain Controlled - Review of Systems General: Reports: No Symptoms HEENT: Reports: No Symptoms Pulmonary: Reports: No Symptoms Cardiovascular: Reports: No Symptoms Gastrointestinal: Reports: No Symptoms Genitourinary: Reports: No Symptoms Musculoskeletal: Reports: No Symptoms, Back Pain Skin: Reports: No Symptoms Neurological: Reports: No Symptoms Psychiatric: Reports: No Symptoms - Patient Data Vitals - Most Recent: Last Vital Signs Temp 97.4 F 09/27/17 08:00 Pulse 66 09/27/17 08:00 Resp 16 09/27/17 08:00 BP 137/65 09/27/17 08:02 Pulse Ox 93 L 09/27/17 08:00 Weight - Most Recent: 130 lb 9.6 oz I&O - Last 24 Hours: Intake & Output 09/26/17 09/27/17 09/27/17 22:59 06:59 14:59 Intake Total 2134 828 8475 Output Total 570 325 450 Balance 830 -225 900 Lab Results Last 24 Hours: Laboratory Results - last 24 hr 09/27/17 09/27/17 Range/Units 05:35 05:35 WBC 16.71 H (4.0-11.0) K/uL RBC 3.48 L (4.30-5.90) M/uL Hgb 10.7 L (12.0-16.0) g/dL Hct 32.4 L (36.0-46.0) % MCV 93.1 (80.0-98.0) fL MCH 30.7 (27.0-32.0) pg MCHC 33.0 (31.0-37.0) g/dL RDW Std Deviation 57.6 (28.0-62.0) fl RDW Coeff of Tigre 17 H (11.0-15.0) % Plt Count 228 (150-400) K/uL MPV 10.10 (7.40-12.00) fL Neut % (Auto) 93.1 H (48.0-80.0) % Lymph % (Auto) 3.9 L (16.0-40.0) % Beckham % (Auto) 2.9 (0.0-15.0) % Eos % (Auto) 0.0 (0.0-7.0) % Baso % (Auto) 0.1 (0.0-1.5) % Neut # (Auto) 15.6 H (1.4-5.7) K/uL Lymph # (Auto) 0.7 (0.6-2.4) K/uL Beckham # (Auto) 0.5 (0.0-0.8) K/uL Eos # (Auto) 0.0 (0.0-0.7) K/uL Baso # (Auto) 0.0 (0.0-0.1) K/uL Nucleated RBC % 0.0 /100WBC Nucleated RBCs # 0 K/uL Sodium 134 L (136-146) mmol/L Potassium 3.9 (3.5-5.1) mmol/L Chloride 101 (98-110) mmol/L Carbon Dioxide 22 (21-31) mmol/L BUN 18 (6.0-23.0) mg/dL Creatinine 0.9 (0.6-1.5) mg/dL Est Cr Clr Drug Dosing 31.63 mL/min Estimated GFR (MDRD) 59.2 ml/min Glucose 134 H (60-110) mg/dL Calcium 8.9 (8.8-10.8) mg/dL Vladislav Results Last 24 Hours: Microbiology 09/26/17 05:08 Aerobic Blood Culture - Preliminary Blood - Venous - Lab Draw NO GROWTH AFTER 1 DAY Anaerobic Blood Culture - Preliminary NO GROWTH AFTER 1 DAY 09/26/17 04:59 Aerobic Blood Culture - Preliminary Blood - Venous NO GROWTH AFTER 1 DAY Anaerobic Blood Culture - Preliminary NO GROWTH AFTER 1 DAY Med Orders - Current: Current Medications Acetaminophen (Tylenol) 650 mg PO Q4H PRN PRN Reason: Pain (Mild 1-3)/fever Last Admin: 09/25/17 09:13 Dose: 650 mg Albuterol (Proventil Neb Soln) 2.5 mg NEB Q2H PRN PRN Reason: Shortness Of Breath/wheezing Last Admin: 09/26/17 03:20 Dose: 2.5 mg Atorvastatin Calcium (Lipitor) 20 mg PO BEDTIME [facility] Last Admin: 09/26/17 20:42 Dose: 20 mg Clonidine HCl (Catapres) 0.1 mg PO Q12HR PRN PRN Reason: Hypertension Diltiazem HCl (Cardizem Cd) 180 mg PO DAILY [facility] Last Admin: 09/27/17 08:04 Dose: 180 mg Docusate Sodium (Colace) 100 mg PO BID [facility] Last Admin: 09/27/17 08:02 Dose: 100 mg Meropenem 1 gm/ Sodium (Chloride) 100 mls @ 200 mls/hr IV Q12H [facility] Last Admin: 09/27/17 04:04 Dose: 200 mls/hr Vancomycin HCl 1 gm/ Sodium (Chloride) 250 mls @ 166 mls/hr IV Q24H [facility] Last Admin: 09/27/17 07:54 Dose: 166 mls/hr Levothyroxine Sodium (Levothyroxine) 150 mcg PO DAILY@0700 [facility] Last Admin: 09/27/17 06:05 Dose: 150 mcg Losartan Potassium (Cozaar) 100 mg PO DAILY [facility] Last Admin: 09/27/17 08:02 Dose: 100 mg Metoprolol Succinate (Toprol Xl) 50 mg PO DAILY [facility] Last Admin: 09/27/17 08:00 Dose: 50 mg Ondansetron HCl (Zofran) 4 mg IVPUSH Q6H PRN PRN Reason: Nausea/Vomiting Last Admin: 09/26/17 03:15 Dose: 4 mg Pantoprazole Sodium (Protonix Iv) 40 mg IVPUSH BID [facility] Last Admin: 09/27/17 08:00 Dose: 40 mg Vesicare 10 Mg 1 each PO DAILY [facility] Last Admin: 09/27/17 08:46 Dose: Not Given Sodium Chloride (Saline Flush) 10 ml FLUSH ASDIRECTED PRN PRN Reason: Keep Vein Open Sodium Chloride (Saline Flush) 2.5 ml FLUSH ASDIRECTED PRN PRN Reason: Keep Vein Open Vancomycin HCl (Pharmacy To Dose - Vancomycin) 0 dose .XX ASDIRECTED [facility] Discontinued Medications Aspirin (Aspirin) 81 mg PO DAILY [facility] Last Admin: 09/24/17 08:40 Dose: 81 mg Diclofenac Sodium (Voltaren) 50 mg PO BIDMEALS [facility] Last Admin: 09/24/17 08:41 Dose: 50 mg Fluconazole (Diflucan) 150 mg PO ONETIME ONE Stop: 09/25/17 11:01 Last Admin: 09/25/17 11:41 Dose: 150 mg Furosemide (Lasix) 40 mg IVPUSH ONETIME ONE Stop: 09/26/17 02:58 Last Admin: 09/26/17 03:08 Dose: 40 mg Furosemide (Lasix) 40 mg IVPUSH NOW ONE Stop: 09/26/17 03:37 Last Admin: 09/26/17 03:37 Dose: 40 mg Heparin Sodium (Porcine) (Heparin Sodium) 5,000 units SUBCUT Q12HR [facility] Last Admin: 09/23/17 22:10 Dose: Not Given Piperacillin Sod/Tazobactam (Sod 2.25 gm/ Sodium Chloride) 100 mls @ 25 mls/hr IV Q6H [facility] Last Infusion: 09/24/17 06:50 Dose: Infused Sodium Chloride (Sodium Chloride 0.45%) 1,000 mls @ 75 mls/hr IV ASDIRECTED [facility] Last Admin: 09/25/17 21:05 Dose: 75 mls/hr Piperacillin Sod/Tazobactam (Sod 2.25 gm/ Sodium Chloride) 50 mls @ 100 mls/hr IV Q6H [facility] Last Admin: 09/26/17 01:22 Dose: 100 mls/hr Magnesium Sulfate 2 gm/ Premix 50 mls @ 50 mls/hr IV ONETIME ONE Stop: 09/26/17 04:20 Last Admin: 09/26/17 03:58 Dose: 50 mls/hr Magnesium Sulfate (Magnesium Sulfate 2 Gm In Water 50 Ml) Confirm Administered Dose 50 mls @ as directed .ROUTE .STK-MED ONE Stop: 09/26/17 03:30 Last Admin: 09/26/17 04:00 Dose: Not Given Meropenem 1 gm/ Sodium (Chloride) 100 mls @ 200 mls/hr IV Q12H [facility] Last Admin: 09/26/17 06:45 Dose: Not Given Meropenem 1 gm/ Sodium (Chloride) 100 mls @ 200 mls/hr IV Q12H [facility] Last Admin: 09/26/17 06:45 Dose: Not Given Vancomycin HCl 1.5 gm/ Sodium (Chloride) 500 mls @ 333.333 mls/hr IV ONETIME ONE Stop: 09/26/17 08:29 Last Admin: 09/26/17 09:41 Dose: 333.333 mls/hr Losartan Potassium (Cozaar) 25 mg PO DAILY [facility] Last Admin: 09/25/17 08:45 Dose: 25 mg Methylprednisolone Sodium Succinate (Solu-Medrol) 125 mg IVPUSH ONETIME ONE Stop: 09/26/17 03:01 Last Admin: 09/26/17 03:11 Dose: 125 mg Polyethylene Glycol (Miralax) 17 gm PO ONETIME ONE Stop: 09/25/17 10:53 Last Admin: 09/25/17 11:41 Dose: 17 gm Potassium Chloride (Klor-Con M20) 40 meq PO ONETIME ONE Stop: 09/26/17 08:22 Last Admin: 09/26/17 09:29 Dose: 40 meq - Exam Quality Assessment: Supplemental Oxygen General: Alert, Oriented HEENT: Pupils Equal, Pupils Reactive Neck: Supple, Trachea Midline, No JVD, No Thyromegaly Lungs: Clear to Auscultation, Normal Respiratory Effort, Crackles Cardiovascular: Regular Rate, Regular Rhythm, No Murmurs GI/Abdominal Exam: Normal Bowel Sounds (Female) Exam: Normal External Exam - Problem List & Annotations (1) Pyelonephritis SNOMED Code(s): 89225081 Code(s): N12 - TUBULO-INTERSTITIAL NEPHRITIS, NOT SPCF ACUTE OR CHRONIC Status: Acute Current Visit: No (2) Hypothyroidism SNOMED Code(s): 31923378 Code(s): E03.9 - HYPOTHYROIDISM, UNSPECIFIED Status: Chronic Current Visit: Yes (3) HTN, Essential hypertension SNOMED Code(s): 98628686 Code(s): I10 - ESSENTIAL (PRIMARY) HYPERTENSION Status: Chronic Current Visit: No (4) Coffee ground emesis SNOMED Code(s): 903039851 Code(s): K92.0 - HEMATEMESIS Status: Acute Current Visit: Yes (5) Constipation SNOMED Code(s): 57071371 Code(s): K59.00 - CONSTIPATION, UNSPECIFIED Status: Acute Current Visit: Yes - Problem List Review Problem List Initiated/Reviewed/Updated: Yes - My Orders Last 24 Hours: My Active Orders 09/27/17 08:00 Vancomycin [Vancocin] 1 gm Sodium Chloride 0.9% [Normal Saline] 250 ml IV Q24H - Plan Plan:: A/p Acute respiratory failure hypoxic severe secondary to pneumonia- continue patient on Meropenem adjusted to the creatinine clearance, Vancomycin , Pharmacy to dose. Cx negative day 1 1) pyelonephritis - start merropenem 1 gram q 12h , d/c zosyn 1') constipation- resolved , hold colace 100 mg po Bid ,hold Miralax 30 ml po 1 dose 3)Coffee ground vomiting- d/c aspirin , no heparin, d/c diclofenac, protonix 40 mg iv q12h , Gi referral as outpatient,, no epigastric pain, hb stable 3)Hypothyroidism-stable, will continue patient with levothyroxine 150 mcg q daily 4) HTN - controlled- cont current Bp meds( metoprolol xl 50 mg po daily , Cozaar , Clonidine, diltiazem) 4)HLP - continue atorvastatin 20 mg po daily 5)DVT prof:SCD
[2017-09-27] MEDS: atorvaSTATin 20 MG Tab PO SCH (20:12)
[2017-09-28] MEDS: Meropenem 1 GM in Sodium Chloride 0.9% 100 ML IV SCH (06:00)
[2017-09-28] MEDS: Levothyroxine 150 MCG Tab PO SCH (06:17)
[2017-09-28 06:30] LABS: CHLORIDE,CL 104 mmol/L (98-110); SODIUM,NA 137 mmol/L (136-146)
[2017-09-28] MEDS: Diltiazem 180 MG Cap.CD PO SCH (08:30)
[2017-09-28] MEDS: Docusate Sodium 100 MG Cap PO SCH (08:31)
[2017-09-28] MEDS: Losartan 50 MG Tab PO SCH (08:31)
[2017-09-28] MEDS: Metoprolol Succinate 50 MG Tab.ER PO SCH (08:32)
[2017-09-28] MEDS: Pantoprazole 40 MG Vial IVPUSH SCH (08:32)
[2017-09-28 12:12] VITALS: BP 120/70
[2017-09-28] MEDS ORDERED: Meropenem 1 GM in Sodium Chloride 0.9% 100 ML IV ONE (14:00)
--- NOTE | 2017-09-28 16:07 | PCM.DCSUM1 ---
Discharge Summary - Hospital Course HPI Initial Comments: Patient 87 years old female with past medical Hx of frequent UTI presented to Emergency Room yesterday due to dysuria , fever , chills , flank pain. In ER patient was found to have pyelonephritis and it was recommended patient admission ,but because there were no beds available patient needed transfer. She did not wanted to go to another facility and after she was given one dose of IV antibiotics she was discharged home with po Augmentin. Her symptoms improved today , her urine culture grew gram negative rods and patient was called home to come back to hospital for Iv antib treatment. Onset of Symptoms: Reports: Sudden Duration of Symptoms: Reports: Hour(s): Location: Reports: Abdomen, Pelvis Quality: Reports: Dull - Discharge Data Discharge Date: 09/28/17 Discharge Disposition: Home, Self-Care 01 Condition: Good - Discharge Diagnosis/Problem(s) (1) Pyelonephritis SNOMED Code(s): 52484904 ICD Code: N12 - TUBULO-INTERSTITIAL NEPHRITIS, NOT SPCF ACUTE OR CHRONIC Status: Acute (2) Hypothyroidism SNOMED Code(s): 60143121 ICD Code: E03.9 - HYPOTHYROIDISM, UNSPECIFIED Status: Chronic (3) HTN, Essential hypertension SNOMED Code(s): 68705183 ICD Code: I10 - ESSENTIAL (PRIMARY) HYPERTENSION Status: Chronic (4) Coffee ground emesis SNOMED Code(s): 181496858 ICD Code: K92.0 - HEMATEMESIS Status: Acute (5) Constipation SNOMED Code(s): 31243007 ICD Code: K59.00 - CONSTIPATION, UNSPECIFIED Status: Acute - Patient Summary/Data Hospital Course: Patient 87 y old female presented to hospital after she was called from home due to positive cultures of urine . Patient was seen the day before in Er and was discharged home with Augmentine. blood culture grew klebsiella pneumonia and patient was admitted to be treated with Zosyn iv , for pyelonephritis. During her hospital stay she developed major hypoxia requiring 15 L O 2 , secondary to pneumonia and patient was treated with Meropenem iv q 24, her symptoms improved and she was discharged home with Augmentin. - Patient Instructions Diet: Usual Diet as Tolerated Activity: As Tolerated Showering/Bathing: March Shower - Discharge Plan Prescriptions/Med Rec: Amoxicillin/Clavulanate K [Augmentin 875 MG/125 MG] 1 tab PO Q12HR #10 tablet Home Medications: Home Meds Levothyroxine 150 mcg PO DAILY 02/21/14 [History] Diltiazem IR [Cardizem] 180 mg PO DAILY 12/11/14 [History] Metoprolol Succinate 50 mg PO DAILY 12/11/14 [History] Losartan [Cozaar] 25 mg PO DAILY 03/08/17 [History] cloNIDine [Catapres] 0.1 mg PO Q12HR PRN 03/08/17 [History] Solifenacin Succinate [Vesicare] 10 mg PO DAILY 09/23/17 [History] atorvaSTATin [Lipitor] 20 mg PO BEDTIME 09/23/17 [History] Amoxicillin/Clavulanate K [Augmentin 875 MG/125 MG] 1 tab PO Q12HR #10 tablet [Rx] Patient Handouts: Amoxicillin; Clavulanic Acid tablets, Urinary Tract Infection , Adult, [id number], Bacteremia - Discharge Summary/Plan Comment DC Time >30 min.: Yes - General Info Date of Service: 09/28/17 Admission Dx/Problem (Free Text: UTi - Review of Systems General: Reports: No Symptoms HEENT: Reports: No Symptoms Pulmonary: Reports: No Symptoms Cardiovascular: Reports: No Symptoms Gastrointestinal: Reports: No Symptoms Genitourinary: Reports: No Symptoms Musculoskeletal: Reports: No Symptoms Skin: Reports: No Symptoms Neurological: Reports: No Symptoms Psychiatric: Reports: No Symptoms - Patient Data Vitals - Most Recent: Last Vital Signs Temp 97.9 F 09/28/17 12:12 Pulse 74 09/28/17 12:12 Resp 18 09/28/17 12:12 BP 120/70 09/28/17 12:12 Pulse Ox 96 09/28/17 12:12 Weight - Most Recent: 129 lb 11.2 oz I&O - Last 24 hours: Intake & Output 09/28/17 09/28/17 09/28/17 06:59 14:59 22:59 Intake Total 350 300 Output Total 1250 350 Balance -900 -50 Lab Results - Last 24 hrs: Laboratory Results - last 24 hr 09/28/17 09/28/17 Range/Units 05:42 05:42 WBC 10.81 (4.0-11.0) K/uL RBC 3.06 L (4.30-5.90) M/uL Hgb 9.6 L (12.0-16.0) g/dL Hct 28.6 L (36.0-46.0) % MCV 93.5 (80.0-98.0) fL MCH 31.4 (27.0-32.0) pg MCHC 33.6 (31.0-37.0) g/dL RDW Std Deviation 57.7 (28.0-62.0) fl RDW Coeff of Tigre 17 H (11.0-15.0) % Plt Count 201 (150-400) K/uL MPV 9.80 (7.40-12.00) fL Neut % (Auto) 81.7 H (48.0-80.0) % Lymph % (Auto) 9.4 L (16.0-40.0) % Bertie % (Auto) 5.7 (0.0-15.0) % Eos % (Auto) 3.1 (0.0-7.0) % Baso % (Auto) 0.1 (0.0-1.5) % Neut # (Auto) 8.8 H (1.4-5.7) K/uL Lymph # (Auto) 1.0 (0.6-2.4) K/uL Bertie # (Auto) 0.6 (0.0-0.8) K/uL Eos # (Auto) 0.3 (0.0-0.7) K/uL Baso # (Auto) 0.0 (0.0-0.1) K/uL Nucleated RBC % 0.0 /100WBC Nucleated RBCs # 0 K/uL Sodium 137 (136-146) mmol/L Potassium 3.7 (3.5-5.1) mmol/L Chloride 104 (98-110) mmol/L Carbon Dioxide 27 (21-31) mmol/L BUN 18 (6.0-23.0) mg/dL Creatinine 0.8 (0.6-1.5) mg/dL Est Cr Clr Drug Dosing 35.59 mL/min Estimated GFR (MDRD) > 60.0 ml/min Glucose 73 (60-110) mg/dL Calcium 8.3 L (8.8-10.8) mg/dL LILIAM Results - Last 24 hrs: Microbiology 09/26/17 05:08 Aerobic Blood Culture - Preliminary Blood - Venous - Lab Draw NO GROWTH AFTER 2 DAYS Anaerobic Blood Culture - Preliminary NO GROWTH AFTER 2 DAYS 09/26/17 04:59 Aerobic Blood Culture - Preliminary Blood - Venous NO GROWTH AFTER 2 DAYS Anaerobic Blood Culture - Preliminary NO GROWTH AFTER 2 DAYS Med Orders - Current: Current Medications Acetaminophen (Tylenol) 650 mg PO Q4H PRN PRN Reason: Pain (Mild 1-3)/fever Last Admin: 09/25/17 09:13 Dose: 650 mg Albuterol (Proventil Neb Soln) 2.5 mg NEB Q2H PRN PRN Reason: Shortness Of Breath/wheezing Last Admin: 09/26/17 03:20 Dose: 2.5 mg Atorvastatin Calcium (Lipitor) 20 mg PO BEDTIME [facility] Last Admin: 09/27/17 20:12 Dose: 20 mg Clonidine HCl (Catapres) 0.1 mg PO Q12HR PRN PRN Reason: Hypertension Diltiazem HCl (Cardizem Cd) 180 mg PO DAILY [facility] Last Admin: 09/28/17 08:30 Dose: 180 mg Vancomycin HCl 1 gm/ Sodium (Chloride) 250 mls @ 166 mls/hr IV Q24H [facility] Last Admin: 09/28/17 08:29 Dose: 166 mls/hr Levothyroxine Sodium (Levothyroxine) 150 mcg PO DAILY@0700 [facility] Last Admin: 09/28/17 06:17 Dose: 150 mcg Losartan Potassium (Cozaar) 100 mg PO DAILY [facility] Last Admin: 09/28/17 08:31 Dose: 100 mg Metoprolol Succinate (Toprol Xl) 50 mg PO DAILY [facility] Last Admin: 09/28/17 08:32 Dose: 50 mg Ondansetron HCl (Zofran) 4 mg IVPUSH Q6H PRN PRN Reason: Nausea/Vomiting Last Admin: 09/26/17 03:15 Dose: 4 mg Pantoprazole Sodium (Protonix Iv) 40 mg IVPUSH BID [facility] Last Admin: 09/28/17 08:32 Dose: 40 mg Vesicare 10 Mg 1 each PO DAILY [facility] Last Admin: 09/28/17 08:32 Dose: Not Given Sodium Chloride (Saline Flush) 10 ml FLUSH ASDIRECTED PRN PRN Reason: Keep Vein Open Sodium Chloride (Saline Flush) 2.5 ml FLUSH ASDIRECTED PRN PRN Reason: Keep Vein Open Vancomycin HCl (Pharmacy To Dose - Vancomycin) 0 dose .XX ASDIRECTED [facility] Discontinued Medications Aspirin (Aspirin) 81 mg PO DAILY [facility] Last Admin: 09/24/17 08:40 Dose: 81 mg Diclofenac Sodium (Voltaren) 50 mg PO BIDMEALS [facility] Last Admin: 09/24/17 08:41 Dose: 50 mg Docusate Sodium (Colace) 100 mg PO BID [facility] Last Admin: 09/28/17 08:31 Dose: Not Given Fluconazole (Diflucan) 150 mg PO ONETIME ONE Stop: 09/25/17 11:01 Last Admin: 09/25/17 11:41 Dose: 150 mg Furosemide (Lasix) 40 mg IVPUSH ONETIME ONE Stop: 09/26/17 02:58 Last Admin: 09/26/17 03:08 Dose: 40 mg Furosemide (Lasix) 40 mg IVPUSH NOW ONE Stop: 09/26/17 03:37 Last Admin: 09/26/17 03:37 Dose: 40 mg Heparin Sodium (Porcine) (Heparin Sodium) 5,000 units SUBCUT Q12HR [facility] Last Admin: 09/23/17 22:10 Dose: Not Given Piperacillin Sod/Tazobactam (Sod 2.25 gm/ Sodium Chloride) 100 mls @ 25 mls/hr IV Q6H [facility] Last Infusion: 09/24/17 06:50 Dose: Infused Sodium Chloride (Sodium Chloride 0.45%) 1,000 mls @ 75 mls/hr IV ASDIRECTED [facility] Last Admin: 09/25/17 21:05 Dose: 75 mls/hr Piperacillin Sod/Tazobactam (Sod 2.25 gm/ Sodium Chloride) 50 mls @ 100 mls/hr IV Q6H [facility] Last Admin: 09/26/17 01:22 Dose: 100 mls/hr Magnesium Sulfate 2 gm/ Premix 50 mls @ 50 mls/hr IV ONETIME ONE Stop: 09/26/17 04:20 Last Admin: 09/26/17 03:58 Dose: 50 mls/hr Magnesium Sulfate (Magnesium Sulfate 2 Gm In Water 50 Ml) Confirm Administered Dose 50 mls @ as directed .ROUTE .STK-MED ONE Stop: 09/26/17 03:30 Last Admin: 09/26/17 04:00 Dose: Not Given Meropenem 1 gm/ Sodium (Chloride) 100 mls @ 200 mls/hr IV Q12H [facility] Last Admin: 09/26/17 06:45 Dose: Not Given Meropenem 1 gm/ Sodium (Chloride) 100 mls @ 200 mls/hr IV Q12H [facility] Last Admin: 09/26/17 06:45 Dose: Not Given Meropenem 1 gm/ Sodium (Chloride) 100 mls @ 200 mls/hr IV Q12H [facility] Last Infusion: 09/28/17 06:30 Dose: Infused Vancomycin HCl 1.5 gm/ Sodium (Chloride) 500 mls @ 333.333 mls/hr IV ONETIME ONE Stop: 09/26/17 08:29 Last Admin: 09/26/17 09:41 Dose: 333.333 mls/hr Meropenem 1 gm/ Sodium (Chloride) 100 mls @ 200 mls/hr IV NOW ONE Stop: 09/28/17 14:29 Last Admin: 09/28/17 14:17 Dose: 200 mls/hr Losartan Potassium (Cozaar) 25 mg PO DAILY [facility] Last Admin: 09/25/17 08:45 Dose: 25 mg Methylprednisolone Sodium Succinate (Solu-Medrol) 125 mg IVPUSH ONETIME ONE Stop: 09/26/17 03:01 Last Admin: 09/26/17 03:11 Dose: 125 mg Polyethylene Glycol (Miralax) 17 gm PO ONETIME ONE Stop: 09/25/17 10:53 Last Admin: 09/25/17 11:41 Dose: 17 gm Potassium Chloride (Klor-Con M20) 40 meq PO ONETIME ONE Stop: 09/26/17 08:22 Last Admin: 09/26/17 09:29 Dose: 40 meq - Exam General: Reports: Alert, Oriented HEENT: Reports: Pupils Equal, Pupils Reactive, EOMI Neck: Reports: Supple, Trachea Midline, No JVD Lungs: Reports: Clear to Auscultation, Normal Respiratory Effort Cardiovascular: Reports: Regular Rate, Regular Rhythm, No Murmurs GI/Abdominal Exam: Normal Bowel Sounds, Soft, Non-Tender, No Organomegaly, No Distention, No Abnormal Bruit Skin: Reports: Warm Neurological: Reports: No New Focal Deficit Psy/Mental Status: Reports: Alert, Normal Affect *Q Meaningful Use (DIS) - VTE *Q VTE Criteria *Q: - Stroke *Q Stroke Criteria *Q: - AMI *Q AMI Criteria *Q:
== END 2017-09-28 17:00 | disposition home or self-care (01) | DRG 690 ==
LOC: MW.MS 17:27 → INTOOBSV 17:27 → MW.MS 18:26 → OBSVTOIN 20:01
PROVIDERS: ADMIT Internal Medicine; ATTEND Internal Medicine
DX: N12 Tubulo-interstitial nephritis, not specified as acute or chronic (principal); K92.0 Hematemesis; E03.9 Hypothyroidism, unspecified; I10 Essential (primary) hypertension; K59.00 Constipation, unspecified; I50.9 Heart failure, unspecified; Z79.899 Other long term (current) drug therapy; E78.5 Hyperlipidemia, unspecified; Z88.8 Allergy status to other drugs, medicaments and biological substances
CPT/HCPCS: 36415; 36600; 71010; 71010-26; 80048; 80053; 82803; 85025; 87040; 87086; A9270-GY; C9113; J1940; J2185; J2405; J2543; J2930; J3370; J3475; J7030; J7040; J7050

== ENCOUNTER 2017-11-08 07:37 | Emergency (ER) | payer MEDICARE ==
[2017-11-08] MEDS ORDERED: Sodium Chloride 0.9% 10 ML Syringe FLUSH PRN (08:05)
[2017-11-08] MEDS ORDERED: Sodium Chloride 0.9% 2.5 ML Syringe FLUSH PRN (08:05)
[2017-11-08 08:50] LABS: CHLORIDE,CL 103 mmol/L (98-110); SODIUM,NA 139 mmol/L (136-146)
[2017-11-08] MEDS ORDERED: Furosemide 40 MG/4 ML VIAL IVPUSH ONE (09:07)
--- NOTE | 2017-11-08 10:21 | EDM.PDOC ---
ED HPI GENERAL MEDICAL PROBLEM - General Chief Complaint: Respiratory Problem Stated Complaint: HARD TIME BREATHING Time Seen by Provider: 11/08/17 07:58 Source of Information: Reports: Patient History Limitations: Reports: No Limitations - History of Present Illness INITIAL COMMENTS - FREE TEXT/NARRATIVE: History of present illness: []Patient starting having some shortness of breath last night and is worse this morning. She states her legs have been swelling more. Her doctor has her weigh herself daily and drink plenty of fluids and she is not noted any weight gain. Patient denies any fevers, cough, chest pain, dizziness or any other complaints at this time. Review of systems: As per history of present illness and below otherwise all systems reviewed and negative. Past medical history: As per history of present illness and as reviewed below otherwise noncontributory. Surgical history: As per history of present illness and as reviewed below otherwise noncontributory. Social history: No reported history of drug or alcohol abuse. Family history: As per history of present illness and as reviewed below otherwise noncontributory. Physical exam: General: Well developed, well nourished in NAD HEENT: Atraumatic, normocephalic, pupils reactive, negative for conjunctival pallor or scleral icterus, mucous membranes moist, throat clear, neck supple, nontender, trachea midline. Lungs: Clear to auscultation, breath sounds equal bilaterally, chest nontender. Heart: S1S2, regular, negative for clicks, rubs, or JVD. Abdomen: Soft, nondistended, nontender. Negative for masses or hepatosplenomegaly. Negative for costovertebral tenderness. Pelvis: Stable nontender. Genitourinary: Deferred. Rectal: Deferred. Extremities: Atraumatic, negative for cords or calf pain. Neurovascular unremarkable. Neuro: Awake, alert, oriented. Cranial nerves II through XII unremarkable. Cerebellum unremarkable. Motor and sensory unremarkable throughout. Exam nonfocal. Diagnostics: []Labs show elevated BNP but is stable for her. Troponin is negative and her white count is normal. Chest x-ray shows mild vascular congestion no infiltrates Therapeutics: []Patient was given a dose of Lasix here with improvement Impression: []Mild CHF Plan: []Follow-up with PMD continue regular meds return if symptoms worsen or change Definitive disposition and diagnosis as appropriate pending reevaluation and review of above. Mid Back Pain Pain Score (Numeric/FACES): 6 - Related Data Allergies Allergy/AdvReac Type Severity Reaction Status Date / Time azithromycin Allergy Dizziness Verified 11/08/17 07:55 cephalexin [Cephalexin] Allergy Cannot Verified 11/08/17 07:55 Remember fexofenadine Allergy Cannot Verified 11/08/17 07:55 Remember levofloxacin [From Levaquin] Allergy Cannot Verified 11/08/17 07:55 Remember lisinopril Allergy Cough Verified 11/08/17 07:55 methylprednisolone Allergy Other Verified 11/08/17 07:55 metoprolol Allergy Dizziness Verified 11/08/17 07:55 nitrofurantoin Allergy Other Verified 11/08/17 07:55 pravastatin sodium Allergy Cannot Verified 11/08/17 07:55 [From Pravachol] Remember propoxyphene napsylate Allergy Cannot Verified 11/08/17 07:55 [From Darvocet-N 100] Remember salsalate [Salsalate] Allergy Nausea Verified 11/08/17 07:55 solifenacin succinate Allergy Respiratory Verified 11/08/17 07:55 [From Vesicare] Depression Sulfa (Sulfonamide Allergy Cannot Verified 11/08/17 07:55 Antibiotics) Remember sulfamethoxazole Allergy Cannot Verified 11/08/17 07:55 Remember trimethoprim [From Septra] Allergy Mouth Sores Verified 11/08/17 07:55 Home Meds: Home Meds Levothyroxine 150 mcg PO DAILY 02/21/14 [History] Diltiazem IR [Cardizem] 180 mg PO DAILY 12/11/14 [History] Metoprolol Succinate 50 mg PO DAILY 12/11/14 [History] Losartan [Cozaar] 25 mg PO DAILY 03/08/17 [History] cloNIDine [Catapres] 0.1 mg PO Q12HR PRN 03/08/17 [History] Solifenacin Succinate [Vesicare] 10 mg PO DAILY 09/23/17 [History] atorvaSTATin [Lipitor] 20 mg PO BEDTIME 09/23/17 [History] Aspirin 81 mg PO ONETIME 11/08/17 [History] Diclofenac Potassium [Cambia] 50 mg PO DAILY 11/08/17 [History] Omeprazole 20 mg PO DAILY 11/08/17 [History] Past Medical History HEENT History: Reports: Impaired Vision Other HEENT History: wears glasses Cardiovascular History: Reports: Heart Failure, Hypertension Other Cardiovascular History: CHF Respiratory History: Reports: None Gastrointestinal History: Reports: None Genitourinary History: Reports: None 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 Musculoskeletal History: Reports: Osteoarthritis Neurological History: Reports: None Psychiatric History: Reports: None Endocrine/Metabolic History: Reports: Hypothyroidism Hematologic History: Reports: None Immunologic History: Reports: None Oncologic (Cancer) History: Reports: None Dermatologic History: Reports: None - Infectious Disease History Infectious Disease History: Reports: Chicken Pox, Measles - Past Surgical History Head Surgeries/Procedures: Reports: None Respiratory Surgical History: Reports: None GI Surgical History: Reports: None Female Surgical History: Reports: None Endocrine Surgical History: Reports: None Neurological Surgical History: Reports: None Musculoskeletal Surgical History: Reports: None Oncologic Surgical History: Reports: None Dermatological Surgical History: Reports: None Social & Family History - Family History Family Medical History: Noncontributory - Tobacco Use Smoking Status *Q: Never Smoker Years of Tobacco use: 40 Packs/Tins Daily: 0.5 Used Tobacco, but Quit: Yes Month Tobacco Last Used: 1989 Second Hand Smoke Exposure: No - Caffeine Use Caffeine Use: Reports: None Caffeine Use Comment: 3cups/day - Alcohol Use Days Per Week of Alcohol Use: 0 - Recreational Drug Use Recreational Drug Use: No ED ROS GENERAL - Review of Systems Review Of Systems: See Below (See history of present illness) ED EXAM, GENERAL - Physical Exam Exam: See Below (See history of present illness) Course - Vital Signs Last Recorded V/S: Last Vital Signs Temp 98.1 F 11/08/17 07:55 Pulse 98 11/08/17 07:55 Resp 20 11/08/17 07:55 BP 161/106 H 11/08/17 07:55 Pulse Ox 98 11/08/17 07:55 - Orders/Labs/Meds Orders: Active Orders 24 hr Category Date Time Status EKG Documentation Completion [RC] STAT Care 11/08/17 08:05 Active Chest 1V Frontal [CR] Stat Exams 11/08/17 08:05 Taken Sodium Chloride 0.9% [Saline Flush] Med 11/08/17 08:05 Active 10 ml FLUSH ASDIRECTED PRN Sodium Chloride 0.9% [Saline Flush] Med 11/08/17 08:05 Active 2.5 ml FLUSH ASDIRECTED PRN Saline Lock Insert [OM.PC] Stat Oth 11/08/17 08:05 Ordered Medication Orders Sodium Chloride (Saline Flush) 10 ml FLUSH ASDIRECTED PRN PRN Reason: Keep Vein Open Last Admin: 11/08/17 09:32 Dose: 10 ml Sodium Chloride (Saline Flush) 2.5 ml FLUSH ASDIRECTED PRN PRN Reason: Keep Vein Open Last Admin: 11/08/17 09:32 Dose: 2.5 ml Labs: Laboratory Tests 11/08/17 11/08/17 11/08/17 Range/Units 08:23 08:23 08:23 WBC 11.19 H (4.0-11.0) K/uL RBC 3.34 L (4.30-5.90) M/uL Hgb 10.5 L (12.0-16.0) g/dL Hct 32.2 L (36.0-46.0) % MCV 96.4 (80.0-98.0) fL MCH 31.4 (27.0-32.0) pg MCHC 32.6 (31.0-37.0) g/dL RDW Std Deviation 59.4 (28.0-62.0) fl RDW Coeff of Tigre 17 H (11.0-15.0) % Plt Count 285 (150-400) K/uL MPV 9.20 (7.40-12.00) fL Neut % (Auto) 79.6 (48.0-80.0) % Lymph % (Auto) 8.9 L (16.0-40.0) % Latimer % (Auto) 9.7 (0.0-15.0) % Eos % (Auto) 1.4 (0.0-7.0) % Baso % (Auto) 0.4 (0.0-1.5) % Neut # (Auto) 8.9 H (1.4-5.7) K/uL Lymph # (Auto) 1.0 (0.6-2.4) K/uL Latimer # (Auto) 1.1 H (0.0-0.8) K/uL Eos # (Auto) 0.2 (0.0-0.7) K/uL Baso # (Auto) 0.0 (0.0-0.1) K/uL Nucleated RBC % 0.0 /100WBC Nucleated RBCs # 0 K/uL Sodium 139 (136-146) mmol/L Potassium 3.7 (3.5-5.1) mmol/L Chloride 103 (98-110) mmol/L Carbon Dioxide 26 (21-31) mmol/L BUN 24 H (6.0-23.0) mg/dL Creatinine 0.8 (0.6-1.5) mg/dL Est Cr Clr Drug Dosing 35.59 mL/min Estimated GFR (MDRD) > 60.0 ml/min Glucose 115 H (60-110) mg/dL Calcium 8.8 (8.8-10.8) mg/dL Total Bilirubin 0.3 (0.1-1.5) mg/dL AST 10 (5-40) IU/L ALT 8 (8-54) IU/L Alkaline Phosphatase 119 (40-150) Troponin I < 0.10 (0.0-0.29) NG/ML B-Natriuretic Peptide 1322 H (<100) PG/ML Total Protein 6.4 (6.0-8.0) g/dL Albumin 3.1 L (3.4-4.8) g/dL Globulin 3.3 (2.0-3.5) g/dL Albumin/Globulin Ratio 0.9 L (1.3-2.8) Meds: Medications Generic Name Dose Route Start Last Admin Trade Name Freq PRN Reason Stop Dose Admin Sodium Chloride 10 ml 11/08/17 08:05 11/08/17 09:32 Saline Flush FLUSH 10 ml ASDIRECTED PRN Administration Keep Vein Open Sodium Chloride 2.5 ml 11/08/17 08:05 11/08/17 09:32 Saline Flush FLUSH 2.5 ml ASDIRECTED PRN Administration Keep Vein Open Discontinued Medications Generic Name Dose Route Start Last Admin Trade Name Freq PRN Reason Stop Dose Admin Furosemide 40 mg 11/08/17 09:07 11/08/17 09:32 Lasix IVPUSH 11/08/17 09:08 40 mg NOW ONE Administration Departure - Departure Time of Disposition: 10:19 Disposition: Home, Self-Care 01 Condition: Good Clinical Impression: CHF NYHA class III (symptoms with mildly strenuous activities) Qualifiers: Congestive heart failure chronicity: unspecified congestive heart failure chronicity - Discharge Information Referrals: Isadora Cuba DO [Primary Care Provider] - Additional Instructions: The following information is given to patients seen in the emergency department who are being discharged to home. This information is to outline your options for follow-up care. We provide all patients seen in our emergency department with a follow-up referral. The need for follow-up, as well as the timing and circumstances, are variable depending upon the specifics of your emergency department visit. If you don't have a primary care physician on staff, we will provide you with a referral. We always advise you to contact your personal physician following an emergency department visit to inform them of the circumstance of the visit and for follow-up with them and/or the need for any referrals to a consulting specialist. The emergency department will also refer you to a specialist when appropriate. This referral assures that you have the opportunity for follow-up care with a specialist. All of these measure are taken in an effort to provide you with optimal care, which includes your follow-up. Under all circumstances we always encourage you to contact your private physician who remains a resource for coordinating your care. When calling for follow-up care, please make the office aware that this follow-up is from your recent emergency room visit. If for any reason you are refused follow-up, please contact the [facility] Emergency Department at and asked to speak to the emergency department charge nurse. Continue regular medicines follow up with primary care return if symptoms worsen or change [facility] Primary Care [address] [place] [id number] - My Orders Last 24 Hours: My Active Orders 11/08/17 08:05 EKG Documentation Completion [RC] STAT Chest 1V Frontal [CR] Stat Sodium Chloride 0.9% [Saline Flush] 10 ml FLUSH ASDIRECTED PRN Sodium Chloride 0.9% [Saline Flush] 2.5 ml FLUSH ASDIRECTED PRN Saline Lock Insert [OM.PC] Stat - Assessment/Plan Last 24 Hours: My Active Orders 11/08/17 08:05 EKG Documentation Completion [RC] STAT Chest 1V Frontal [CR] Stat Sodium Chloride 0.9% [Saline Flush] 10 ml FLUSH ASDIRECTED PRN Sodium Chloride 0.9% [Saline Flush] 2.5 ml FLUSH ASDIRECTED PRN Saline Lock Insert [OM.PC] Stat
[2017-11-08 10:38] VITALS: BP 178/110
--- NOTE | 2017-11-10 09:46 | CR ---
EXAM DATE: 11/08/17 PATIENT'S AGE: 87 Patient: MAIDA ANDERSEN Facility: [place], [place] Site . Site : [id number] Study: XRay Chest [id number] 8:51:52 AM Ordering Physician: Daniel Lui Final Report: Indication: Chest pain and SOB. Technique: Portable AP image of the chest. Comparison: 09/26/2017. Findings: No obvious infiltrate. Mild fibrotic changes. No pleural effusion. Heart size at the upper limit of normal, allowing for the AP projection. Pulmonary venous congestion. No pulmonary edema. No significant bony abnormality. Impression: Pulmonary venous congestion but no evidence of pulmonary edema. Dictated by Abdulaziz Arriola MD @ Nov 08 2017 8:55AM (Electronic Signature) Report Signed by Proxy. [facility] HOSPITALPushpa
== END 2017-11-08 10:36 | disposition home or self-care (01) ==
LOC: MW.ED 07:37
DX: I11.0 Hypertensive heart disease with heart failure (principal); I50.9 Heart failure, unspecified; Z88.1 Allergy status to other antibiotic agents; Z88.8 Allergy status to other drugs, medicaments and biological substances; Z88.2 Allergy status to sulfonamides; Z79.82 Long term (current) use of aspirin; Z79.899 Other long term (current) drug therapy
CPT/HCPCS: 71045; 80053; 83880; 84484; 85025; 93005; 96374; 99284; J1940

== ENCOUNTER 2018-01-19 14:42 | Emergency (ER) | payer MEDICARE ==
[2018-01-19] MEDS ORDERED: Morphine 2 MG/ML Syringe IVPUSH ONE (14:44)
[2018-01-19] MEDS ORDERED: Sodium Chloride 0.9% 2.5 ML Syringe FLUSH PRN (14:44)
[2018-01-19] MEDS ORDERED: Ondansetron 4 MG/2 ML SDV IVPUSH ONE (14:44)
[2018-01-19] MEDS ORDERED: Sodium Chloride 0.9% 10 ML Syringe FLUSH PRN (14:44)
--- NOTE | 2018-01-19 14:48 | EDM.PDOC ---
ED HPI GENERAL MEDICAL PROBLEM - General Stated Complaint: AMB Time Seen by Provider: 01/19/18 14:45 Source of Information: Reports: Patient, EMS History Limitations: Reports: No Limitations - History of Present Illness INITIAL COMMENTS - FREE TEXT/NARRATIVE: HISTORY AND PHYSICAL: []87-year-old female presents per EMS with pain to the right hip/ pelvis History of Present Illness: []Patient had a fall yesterday, from a standing position to the floor, is seen pain to her right hip Patient has had bilateral replacement several years ago and only has pain daily rated as a 1 or 2/10. At this time she is rating her pain as a 8-9/10. Review of Systems: As per history of present illness and below otherwise all systems reviewed and negative. Past medical history: As per history of present illness and as reviewed below otherwise noncontributory. Surgical history: As per history of present illness and as reviewed below otherwise noncontributory. Social history: No reported history of drug or alcohol abuse. Family history: As per history of present illness and as reviewed below otherwise noncontributory. Physical exam: Alert and oriented female answering questions appropriately begin in full sentences without any shortness of breath she denies any chest pain. HEENT: Atraumatic, normocehpalic, pupils reactive, negative for conjunctival pallor or scleral icterus, mucous membranes moist, throat clear, neck supple, nontender, trachea midline. Lungs: Clear to auscultation, breath sounds equal bilaterally, chest non tender. Heart: S1S2, regular, negative for clicks, rubs, or JVD. Abdomen: Soft, nondistended, nontender. Negative for masses or hepatossplenmegaly. Negative for costovertebral tenderness. Pelvis: Stable mildly tender. Genitourinary: Deferred. Rectal: Deferred Extremities: Atraumatic, negative for cords or calf pain. Pain to right hip. Decreased range of motion noted due to increased pain. She is denying any pain while sitting still and pillows are propped correctly Neurovascular unremarkable. Neuro: Awake, alert, oriented. Cranial nerves II through XII unremarkable. Cerebellum unremarkable. Motor and sensory unremarkable throughout. Exam nonfocal. At this discussed this patient with Dr. Rudolph through [facility] emergency room and she has accepted the patient for transfer at 1547. Patient has a right ramus fracture. Unfortunately orthopedics is unavailable at our facility at this time. Diagnostics: [X-ray right hip and pelvis] Therapeutics: []Morphine Impression: []Right pubic ramus fracture Plan: []Transferred to [facility] emergency room Definitive disposition and diagnosis as appropriate pending reevaluation and review of above. Onset: Sudden Duration: Day(s): (1) Location: Reports: Pelvis, Lower Extremity, Right Severity: Moderate Improves with: Reports: None Worsens with: Reports: None Right Hip Pain Score (Numeric/FACES): 8 - Related Data Allergies Allergy/AdvReac Type Severity Reaction Status Date / Time azithromycin Allergy Dizziness Verified 11/08/17 07:55 cephalexin [Cephalexin] Allergy Cannot Verified 11/08/17 07:55 Remember fexofenadine Allergy Cannot Verified 11/08/17 07:55 Remember levofloxacin [From Levaquin] Allergy Cannot Verified 11/08/17 07:55 Remember lisinopril Allergy Cough Verified 11/08/17 07:55 methylprednisolone Allergy Other Verified 11/08/17 07:55 metoprolol Allergy Dizziness Verified 11/08/17 07:55 nitrofurantoin Allergy Other Verified 11/08/17 07:55 pravastatin sodium Allergy Cannot Verified 11/08/17 07:55 [From Pravachol] Remember propoxyphene napsylate Allergy Cannot Verified 11/08/17 07:55 [From Darvocet-N 100] Remember salsalate [Salsalate] Allergy Nausea Verified 11/08/17 07:55 solifenacin succinate Allergy Respiratory Verified 11/08/17 07:55 [From Vesicare] Depression Sulfa (Sulfonamide Allergy Cannot Verified 11/08/17 07:55 Antibiotics) Remember sulfamethoxazole Allergy Cannot Verified 11/08/17 07:55 Remember trimethoprim [From Septra] Allergy Mouth Sores Verified 11/08/17 07:55 Home Meds: Home Meds Levothyroxine 150 mcg PO DAILY 02/21/14 [History] Metoprolol Succinate 50 mg PO DAILY 12/11/14 [History] cloNIDine [Catapres] 0.1 mg PO Q12HR PRN 03/08/17 [History] Solifenacin Succinate [Vesicare] 10 mg PO DAILY 09/23/17 [History] atorvaSTATin [Lipitor] 20 mg PO BEDTIME 09/23/17 [History] Aspirin 81 mg PO ONETIME 11/08/17 [History] Black Cohosh 01/19/18 [History] Furosemide 40 mg PO DAILY 01/19/18 [History] Losartan [Cozaar] 100 mg PO DAILY 01/19/18 [History] Meclizine [Antivert] 25 mg PO TID PRN 01/19/18 [History] Potassium Chloride 10 meq PO DAILY 01/19/18 [History] predniSONE [Prednisone] 2.5 mg PO QPM 01/19/18 [History] predniSONE [Prednisone] 5 mg PO QAM 01/19/18 [History] Past Medical History HEENT History: Reports: Impaired Vision Other HEENT History: wears glasses Cardiovascular History: Reports: Heart Failure, Hypertension Other Cardiovascular History: CHF Respiratory History: Reports: None Gastrointestinal History: Reports: None Genitourinary History: Reports: None 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 Musculoskeletal History: Reports: Osteoarthritis Neurological History: Reports: None Psychiatric History: Reports: None Endocrine/Metabolic History: Reports: Hypothyroidism Hematologic History: Reports: None Immunologic History: Reports: None Oncologic (Cancer) History: Reports: None Dermatologic History: Reports: None - Infectious Disease History Infectious Disease History: Reports: Chicken Pox, Measles - Past Surgical History Head Surgeries/Procedures: Reports: None Respiratory Surgical History: Reports: None GI Surgical History: Reports: None Female Surgical History: Reports: None Endocrine Surgical History: Reports: None Neurological Surgical History: Reports: None Musculoskeletal Surgical History: Reports: None Oncologic Surgical History: Reports: None Dermatological Surgical History: Reports: None Social & Family History - Family History Family Medical History: Noncontributory - Tobacco Use Smoking Status *Q: Never Smoker Years of Tobacco use: 40 Packs/Tins Daily: 0.5 Used Tobacco, but Quit: Yes Month/Year Tobacco Last Used: 1989 Second Hand Smoke Exposure: No - Caffeine Use Caffeine Use: Reports: None Caffeine Use Comment: 3cups/day - Alcohol Use Days Per Week of Alcohol Use: 0 - Recreational Drug Use Recreational Drug Use: No ED ROS GENERAL - Review of Systems Review Of Systems: ROS reveals no pertinent complaints other than HPI. ED EXAM, GENERAL - Physical Exam Exam: See Below (See dictation) Course - Vital Signs Last Recorded V/S: Last Vital Signs Temp 36.8 C 01/19/18 15:00 Pulse 72 01/19/18 15:00 Resp 18 01/19/18 15:00 BP 130/79 01/19/18 15:00 Pulse Ox 97 01/19/18 15:00 - Orders/Labs/Meds Orders: Active Orders 24 hr Category Date Time Status Sodium Chloride 0.9% [Saline Flush] Med 01/19/18 14:44 Active 10 ml FLUSH ASDIRECTED PRN Sodium Chloride 0.9% [Saline Flush] Med 01/19/18 14:44 Active 2.5 ml FLUSH ASDIRECTED PRN Saline Lock Insert [OM.PC] Stat Oth 01/19/18 14:44 Ordered Medication Orders Sodium Chloride (Saline Flush) 10 ml FLUSH ASDIRECTED PRN PRN Reason: Keep Vein Open Last Admin: 01/19/18 15:32 Dose: 10 ml Sodium Chloride (Saline Flush) 2.5 ml FLUSH ASDIRECTED PRN PRN Reason: Keep Vein Open Last Admin: 01/19/18 15:32 Dose: 2.5 ml Meds: Medications Generic Name Dose Route Start Last Admin Trade Name Freq PRN Reason Stop Dose Admin Sodium Chloride 10 ml 01/19/18 14:44 01/19/18 15:32 Saline Flush FLUSH 10 ml ASDIRECTED PRN Administration Keep Vein Open Sodium Chloride 2.5 ml 01/19/18 14:44 01/19/18 15:32 Saline Flush FLUSH 2.5 ml ASDIRECTED PRN Administration Keep Vein Open Discontinued Medications Generic Name Dose Route Start Last Admin Trade Name Freq PRN Reason Stop Dose Admin Morphine Sulfate 2 mg 01/19/18 14:44 01/19/18 15:33 Morphine IVPUSH 01/19/18 14:45 2 mg ONETIME ONE Administration Ondansetron HCl 4 mg 01/19/18 14:44 01/19/18 15:32 Zofran IVPUSH 01/19/18 14:45 4 mg ONETIME ONE Administration Departure - Departure Time of Disposition: 16:02 Disposition: DC/Tfer to Acute Hospital 02 Condition: Fair Clinical Impression: Pubic ramus fracture Qualifiers: Encounter type: initial encounter Fracture type: closed Laterality: right Qualified Code(s): S32.591A - Other specified fracture of right pubis, initial encounter for closed fracture - Discharge Information Additional Instructions: The following information is given to patients seen in the emergency department who are being discharged to home. This information is to outline your options for follow-up care. We provide all patients seen in our emergency department with a follow-up referral. The need for follow-up, as well as the timing and circumstances, are variable depending upon the specifics of your emergency department visit. If you don't have a primary care physician on staff, we will provide you with a referral. We always advise you to contact your personal physician following an emergency department visit to inform them of the circumstance of the visit and for follow-up with them and/or the need for any referrals to a consulting specialist. The emergency department will also refer you to a specialist when appropriate. This referral assures that you have the opportunity for followup care with a specialist. All of these measure are taken in an effort to provide you with optimal care, which includes your followup. Under all circumstances we always encourage you to contact your private physician who remains a resource for coordinating your care. When calling for followup care, please make the office aware that this follow-up is from your recent emergency room visit. If for any reason you are refused follow-up, please contact the [facility] emergency department at and asked to speak to the emergency department charge nurse. You were found to have a fracture in your pelvis This may be complicated because of your osteopenia - My Orders Last 24 Hours: My Active Orders 01/19/18 14:44 Sodium Chloride 0.9% [Saline Flush] 10 ml FLUSH ASDIRECTED PRN Sodium Chloride 0.9% [Saline Flush] 2.5 ml FLUSH ASDIRECTED PRN Saline Lock Insert [OM.PC] Stat - Assessment/Plan Last 24 Hours: My Active Orders 01/19/18 14:44 Sodium Chloride 0.9% [Saline Flush] 10 ml FLUSH ASDIRECTED PRN Sodium Chloride 0.9% [Saline Flush] 2.5 ml FLUSH ASDIRECTED PRN Saline Lock Insert [OM.PC] Stat
--- NOTE | 2018-01-19 15:34 | CR ---
EXAMINATION: Pelvis and right hip HISTORY: Pain COMPARISON: None TECHNIQUE: AP pelvis and 2 views of the right rib FINDINGS: Bilateral total hip hardware demonstrated. Minimally displaced fractures noted within the s uperior and inferior right pubic rami. The iliopectineal lines are intact on the left. SI joints are symmetric. Overall bone mineralization is notably osteopenic. IMPRESSION: 1. Superior and inferior right pubic rami fractures. 2. Generalized osteopenia.
[2018-01-19 16:45] VITALS: BP 127/76
== END 2018-01-19 16:43 ==
LOC: MW.ED 14:42
DX: S32.591A Other specified fracture of right pubis, initial encounter for closed fracture (principal); I11.0 Hypertensive heart disease with heart failure; I50.9 Heart failure, unspecified; M19.90 Unspecified osteoarthritis, unspecified site; E03.9 Hypothyroidism, unspecified; W18.30XA Fall on same level, unspecified, initial encounter; Z88.1 Allergy status to other antibiotic agents; Z88.8 Allergy status to other drugs, medicaments and biological substances; Z88.2 Allergy status to sulfonamides; Z79.82 Long term (current) use of aspirin; Z79.899 Other long term (current) drug therapy; Z96.643 Presence of artificial hip joint, bilateral
CPT/HCPCS: 73502; 81001; 96374; 96375; 99285; J2270; J2405; 99283

== ENCOUNTER 2018-02-10 16:08 | Emergency (ER) | payer MEDICARE ==
[2018-02-10] MEDS ORDERED: Lidocaine 1% 20 ML MDV INJECT ONE (16:29)
[2018-02-10] MEDS ORDERED: Diphtheria,Pertussis(Acell),Tetanus Vaccine 0.5 ML Syringe IM ONE (16:40)
[2018-02-10] MEDS ORDERED: Bacitracin Oint 1 GM U/D Packet TOP ONE (17:00)
--- NOTE | 2018-02-10 17:05 | EDM.PDOC ---
ED HPI GENERAL MEDICAL PROBLEM - General Chief Complaint: Lower Extremity Injury/Pain Stated Complaint: LACERATION LT LEG Time Seen by Provider: 02/10/18 16:10 Source of Information: Reports: Patient History Limitations: Reports: No Limitations - History of Present Illness INITIAL COMMENTS - FREE TEXT/NARRATIVE: Patient presents with a laceration to the left calf. She states she was not supposed to be out because she broke her pelvis but she had to go to the store so she went out with her walker and she was getting into her car when the car door hit the back of her left leg leaving a laceration. No other injuries - Related Data Allergies Allergy/AdvReac Type Severity Reaction Status Date / Time azithromycin Allergy Dizziness Verified 02/10/18 16:21 cephalexin [Cephalexin] Allergy Cannot Verified 02/10/18 16:21 Remember fexofenadine Allergy Cannot Verified 02/10/18 16:21 Remember levofloxacin [From Levaquin] Allergy Cannot Verified 02/10/18 16:21 Remember lisinopril Allergy Cough Verified 02/10/18 16:21 methylprednisolone Allergy Other Verified 02/10/18 16:21 metoprolol Allergy Dizziness Verified 02/10/18 16:21 nitrofurantoin Allergy Other Verified 02/10/18 16:21 pravastatin sodium Allergy Cannot Verified 02/10/18 16:21 [From Pravachol] Remember propoxyphene napsylate Allergy Cannot Verified 02/10/18 16:21 [From Darvocet-N 100] Remember salsalate [Salsalate] Allergy Nausea Verified 02/10/18 16:21 solifenacin succinate Allergy Respiratory Verified 02/10/18 16:21 [From Vesicare] Depression Sulfa (Sulfonamide Allergy Cannot Verified 02/10/18 16:21 Antibiotics) Remember sulfamethoxazole Allergy Cannot Verified 02/10/18 16:21 Remember trimethoprim [From Septra] Allergy Mouth Sores Verified 02/10/18 16:21 Home Meds: Home Meds Levothyroxine 150 mcg PO DAILY 02/21/14 [History] Metoprolol Succinate 50 mg PO DAILY 12/11/14 [History] cloNIDine [Catapres] 0.1 mg PO Q12HR PRN 03/08/17 [History] Solifenacin Succinate [Vesicare] 10 mg PO DAILY 09/23/17 [History] atorvaSTATin [Lipitor] 20 mg PO BEDTIME 09/23/17 [History] Aspirin 81 mg PO ONETIME 11/08/17 [History] Black Cohosh 1 tab PO DAILY 01/19/18 [History] Furosemide 40 mg PO DAILY 01/19/18 [History] Losartan [Cozaar] 100 mg PO DAILY 01/19/18 [History] Meclizine [Antivert] 25 mg PO TID PRN 01/19/18 [History] Potassium Chloride 10 meq PO DAILY 01/19/18 [History] predniSONE [Prednisone] 2.5 mg PO QPM 01/19/18 [History] predniSONE [Prednisone] 5 mg PO QAM 01/19/18 [History] Past Medical History HEENT History: Reports: Impaired Vision Other HEENT History: wears glasses Cardiovascular History: Reports: Heart Failure, Hypertension Other Cardiovascular History: CHF Respiratory History: Reports: None Gastrointestinal History: Reports: None Genitourinary History: Reports: None BAT PERSON History: Reports: None Musculoskeletal History: Reports: Osteoarthritis Neurological History: Reports: None Psychiatric History: Reports: None Endocrine/Metabolic History: Reports: Hypothyroidism Hematologic History: Reports: None Immunologic History: Reports: None Oncologic (Cancer) History: Reports: None Dermatologic History: Reports: None - Infectious Disease History Infectious Disease History: Reports: Chicken Pox, Measles, Mumps, Rubella - Past Surgical History Head Surgeries/Procedures: Reports: None Respiratory Surgical History: Reports: None GI Surgical History: Reports: None Female Surgical History: Reports: None Endocrine Surgical History: Reports: None Neurological Surgical History: Reports: None Musculoskeletal Surgical History: Reports: None Oncologic Surgical History: Reports: None Dermatological Surgical History: Reports: None Social & Family History - Family History Family Medical History: Noncontributory - Tobacco Use Smoking Status *Q: Never Smoker Years of Tobacco use: 40 Packs/Tins Daily: 0.5 Used Tobacco, but Quit: Yes Month/Year Tobacco Last Used: 1989 Second Hand Smoke Exposure: No - Caffeine Use Caffeine Use: Reports: Coffee Caffeine Use Comment: 3cups/day - Alcohol Use Days Per Week of Alcohol Use: 0 - Recreational Drug Use Recreational Drug Use: No Review of Systems - Review of Systems Review Of Systems: ROS reveals no pertinent complaints other than HPI. ED EXAM, GENERAL - Physical Exam Exam: See Below Exam Limited By: No Limitations General Appearance: Alert, No Apparent Distress Ears: Normal External Exam Nose: Normal Inspection Throat/Mouth: Normal Inspection Head: Atraumatic, Normocephalic Neck: Normal Inspection Respiratory/Chest: No Respiratory Distress Cardiovascular: Normal Peripheral Pulses GI/Abdominal: Soft Neurological: Alert, Oriented, Other (Alert and telling stories the whole time) Psychiatric: Normal Affect, Normal Mood Skin Exam: Warm, Dry, Normal Color, Other (4 cm semicircular superficial laceration left calf) ED TRAUMA EXTREMITY PROCEDURES - Laceration/Wound Repair Left Middle Leg Lac/Wound Length In cm: 4 Appearance: Superficial Distal NVT: Neuro & Vascular Intact, No Tendon Injury Anesthetic Type: Local Local Anesthesia - Lidocaine (Xylocaine): 1% Plain Local Anesthetic Volume: Other (6) Exploration/Debridement/Repair: Wound Explored, In a Bloodless Field, Explored to Base Closed With: Sutures Suture Size: 4-0 # of Sutures: 7 Course - Vital Signs Last Recorded V/S: Last Vital Signs Temp 36.4 C 02/10/18 16:15 Pulse 79 02/10/18 16:15 Resp 16 02/10/18 16:15 BP 179/88 H 02/10/18 16:15 Pulse Ox 99 02/10/18 16:15 - Orders/Labs/Meds Orders: Active Orders 24 hr Category Date Time Status Vaccines to be Administered [RC] PER UNIT ROUTINE Care 02/10/18 16:40 Active Bacitracin [Bacitracin Oint 1 GM] Med 02/10/18 17:00 Once 1 dose TOP ONETIME ONE Medication Orders Bacitracin (Bacitracin Oint 1 Gm) 1 dose TOP ONETIME ONE Stop: 02/10/18 17:01 Meds: Medications Generic Name Dose Route Start Last Admin Trade Name Freq PRN Reason Stop Dose Admin Bacitracin 1 dose 02/10/18 17:00 Bacitracin Oint 1 Gm TOP 02/10/18 17:01 ONETIME ONE Discontinued Medications Generic Name Dose Route Start Last Admin Trade Name Freq PRN Reason Stop Dose Admin Diphtheria/Tetanus/Acell Pertussis 0.5 ml 02/10/18 16:40 Adacel IM 02/10/18 16:41 .ONCE ONE Lidocaine HCl 20 ml 02/10/18 16:29 02/10/18 16:50 Xylocaine 1% INJECT 02/10/18 16:30 20 ml ONETIME ONE Administration Departure - Departure Time of Disposition: 17:04 Disposition: Home, Self-Care 01 Condition: Good Clinical Impression: Laceration - Discharge Information Referrals: Ruy Roper MD [Primary Care Provider] - Additional Instructions: 1. Which for signs of infection: Redness, swelling, pussy drainage, report promptly 2. Suture removal 7-10 days 3. Remove dressing in 24 hours then may shower - My Orders Last 24 Hours: My Active Orders 02/10/18 16:40 Vaccines to be Administered [RC] PER UNIT ROUTINE 02/10/18 17:00 Bacitracin [Bacitracin Oint 1 GM] 1 dose TOP ONETIME ONE - Assessment/Plan Last 24 Hours: My Active Orders 02/10/18 16:40 Vaccines to be Administered [RC] PER UNIT ROUTINE 02/10/18 17:00 Bacitracin [Bacitracin Oint 1 GM] 1 dose TOP ONETIME ONE
[2018-02-10 17:45] VITALS: BP 148/79
== END 2018-02-10 17:35 | disposition home or self-care (01) ==
LOC: MW.ED 16:08
DX: S81.812A Laceration without foreign body, left lower leg, initial encounter (principal); I11.0 Hypertensive heart disease with heart failure; I50.9 Heart failure, unspecified; E03.9 Hypothyroidism, unspecified; Z88.1 Allergy status to other antibiotic agents; Z88.8 Allergy status to other drugs, medicaments and biological substances; Z88.2 Allergy status to sulfonamides; Z23 Encounter for immunization; Z79.899 Other long term (current) drug therapy; Z87.891 Personal history of nicotine dependence; W22.8XXA Striking against or struck by other objects, initial encounter
CPT/HCPCS: 90471; 90715; 99282-25

== ENCOUNTER 2018-03-27 02:31 | Inpatient (IN) | payer MEDICARE ==
[2018-03-27] MEDS ORDERED: Aspirin 81 MG Tab.Chew PO ONE (02:32)
--- NOTE | 2018-03-27 02:34 | EDM.PDOC ---
ED HPI GENERAL MEDICAL PROBLEM - General Stated Complaint: CHEST PAIN AND SHORTNESS OF BREATH Time Seen by Provider: 03/27/18 02:33 Source of Information: Reports: Patient - History of Present Illness INITIAL COMMENTS - FREE TEXT/NARRATIVE: HISTORY AND PHYSICAL: History of present illness: [87-year-old female with CHF presents with chest discomfort and shortness of breath no radiation arm neck or jaw worsened by lying flat better sitting up 0 out of 10 chest pain after arrival to the emergency room no fever nausea vomiting chills sweats no headache dizziness or palpitation no bowel or urine symptoms ] Review of systems: As per history of present illness and below otherwise all systems reviewed and negative. Past medical history: As per history of present illness and as reviewed below otherwise noncontributory. Surgical history: As per history of present illness and as reviewed below otherwise noncontributory. Social history: No reported history of drug or alcohol abuse. Family history: As per history of present illness and as reviewed below otherwise noncontributory. Physical exam: HEENT: Atraumatic, normocephalic, pupils reactive, negative for conjunctival pallor or scleral icterus, mucous membranes moist, throat clear, neck supple, nontender, trachea midline. Lungs: Crackles at the lung bases, breath sounds equal bilaterally, chest nontender. Heart: S1S2, regular, negative for clicks, rubs, or JVD. Abdomen: Soft, nondistended, nontender. Negative for masses or hepatosplenomegaly. Negative for costovertebral tenderness. Pelvis: Stable nontender. Genitourinary: Deferred. Rectal: Deferred. Extremities: Atraumatic, negative for cords or calf pain. Neurovascular unremarkable. Neuro: Awake, alert, oriented. Cranial nerves II through XII unremarkable. Cerebellum unremarkable. Motor and sensory unremarkable throughout. Exam nonfocal. Diagnostics: [CBC CMP INR troponin BNP urine culture EKG Chest 1 view] Therapeutics: [Normal saline TKO Aspirin 324 mg chewable Lasix 40 mg IV ] Cipro 400 mg IV Impression: Hypoxia Shortness of breath [] Atypical chest pain CHF history Definitive disposition and diagnosis as appropriate pending reevaluation and review of above. Chest Pain Score (Numeric/FACES): 4 - Related Data Allergies Allergy/AdvReac Type Severity Reaction Status Date / Time azithromycin Allergy Dizziness Verified 03/27/18 02:40 cephalexin [Cephalexin] Allergy Cannot Verified 03/27/18 02:40 Remember fexofenadine Allergy Cannot Verified 03/27/18 02:40 Remember levofloxacin [From Levaquin] Allergy Cannot Verified 03/27/18 02:40 Remember lisinopril Allergy Cough Verified 03/27/18 02:40 methylprednisolone Allergy Other Verified 03/27/18 02:40 metoprolol Allergy Dizziness Verified 03/27/18 02:40 nitrofurantoin Allergy Other Verified 03/27/18 02:40 pravastatin sodium Allergy Cannot Verified 03/27/18 02:40 [From Pravachol] Remember propoxyphene napsylate Allergy Cannot Verified 03/27/18 02:40 [From Darvocet-N 100] Remember salsalate [Salsalate] Allergy Nausea Verified 03/27/18 02:40 solifenacin succinate Allergy Respiratory Verified 03/27/18 02:40 [From Vesicare] Depression Sulfa (Sulfonamide Allergy Cannot Verified 03/27/18 02:40 Antibiotics) Remember sulfamethoxazole Allergy Cannot Verified 03/27/18 02:40 Remember trimethoprim [From Septra] Allergy Mouth Sores Verified 03/27/18 02:40 Home Meds: Home Meds Levothyroxine 150 mcg PO DAILY 02/21/14 [History] Metoprolol Succinate 50 mg PO DAILY 12/11/14 [History] cloNIDine [Catapres] 0.1 mg PO Q12HR PRN 03/08/17 [History] Solifenacin Succinate [Vesicare] 10 mg PO DAILY 09/23/17 [History] atorvaSTATin [Lipitor] 20 mg PO BEDTIME 09/23/17 [History] Aspirin 81 mg PO DAILY 11/08/17 [History] Black Cohosh 1 tab PO DAILY 01/19/18 [History] Furosemide 40 mg PO DAILY 01/19/18 [History] Losartan [Cozaar] 100 mg PO DAILY 01/19/18 [History] Meclizine [Antivert] 25 mg PO TID PRN 01/19/18 [History] Potassium Chloride 10 meq PO DAILY 01/19/18 [History] predniSONE [Prednisone] 2.5 mg PO QPM 01/19/18 [History] predniSONE [Prednisone] 5 mg PO QAM 01/19/18 [History] Past Medical History HEENT History: Reports: Impaired Vision Other HEENT History: wears glasses Cardiovascular History: Reports: Heart Failure, Hypertension Other Cardiovascular History: CHF Respiratory History: Reports: None Gastrointestinal History: Reports: None Genitourinary History: Reports: None STORY WRITER History: Reports: None Musculoskeletal History: Reports: Osteoarthritis Neurological History: Reports: None Psychiatric History: Reports: None Endocrine/Metabolic History: Reports: Hypothyroidism Hematologic History: Reports: None Immunologic History: Reports: None Oncologic (Cancer) History: Reports: None Dermatologic History: Reports: None - Infectious Disease History Infectious Disease History: Reports: Chicken Pox, Measles, Mumps, Rubella - Past Surgical History Head Surgeries/Procedures: Reports: None Respiratory Surgical History: Reports: None GI Surgical History: Reports: None Female Surgical History: Reports: None Endocrine Surgical History: Reports: None Neurological Surgical History: Reports: None Musculoskeletal Surgical History: Reports: None Oncologic Surgical History: Reports: None Dermatological Surgical History: Reports: None Social & Family History - Family History Family Medical History: Noncontributory - Caffeine Use Caffeine Use: Reports: Coffee Caffeine Use Comment: 3cups/day ED ROS GENERAL - Review of Systems Review Of Systems: See Below ED EXAM, GENERAL - Physical Exam Exam: See Below Course - Vital Signs Last Recorded V/S: Last Vital Signs Temp 98.7 F 03/27/18 02:41 Pulse 77 03/27/18 03:10 Resp 22 H 03/27/18 03:10 BP 185/100 H 03/27/18 03:10 Pulse Ox 95 03/27/18 03:10 - Orders/Labs/Meds Orders: Active Orders 24 hr Category Date Time Status EKG Documentation Completion [RC] STAT Care 03/27/18 02:34 Active RT Aerosol Therapy [RC] ASDIRECTED Care 03/27/18 02:39 Active Chest 1V Frontal [CR] Stat Exams 03/27/18 02:34 Taken CULTURE URINE [RM] Stat Lab 03/27/18 03:38 Ordered UA W/MICROSCOPIC [URIN] Stat Lab 03/27/18 03:26 Ordered Ciprofloxacin in D5W [Cipro in D5W 400 MG/200 ML] 400 Med 03/27/18 03:38 Ordered mg Premix Bag 1 bag IV NOW Nitroglycerin [Nitrostat] Med 03/27/18 02:36 Active 0.4 mg SL Q5M PRN Sodium Chloride 0.9% [Normal Saline] 1,000 ml Med 03/27/18 02:45 Active IV STAT Medication Orders Sodium Chloride (Normal Saline) 1,000 mls @ 125 mls/hr IV STAT TONIO Last Admin: 03/27/18 02:53 Dose: 125 mls/hr Ciprofloxacin/Dextrose 400 mg/ (Premix) 200 mls @ 200 mls/hr IV NOW STA Stop: 03/27/18 04:37 Nitroglycerin (Nitrostat) 0.4 mg SL Q5M PRN PRN Reason: Chest Pain Labs: Laboratory Tests 03/27/18 03/27/18 03/27/18 Range/Units 02:47 02:47 02:47 WBC 10.77 (4.0-11.0) K/uL RBC 3.58 L (4.30-5.90) M/uL Hgb 11.4 L (12.0-16.0) g/dL Hct 34.7 L (36.0-46.0) % MCV 96.9 (80.0-98.0) fL MCH 31.8 (27.0-32.0) pg MCHC 32.9 (31.0-37.0) g/dL RDW Std Deviation 54.1 (28.0-62.0) fl RDW Coeff of [place] 15 (11.0-15.0) % Plt Count 256 (150-400) K/uL MPV 9.90 (7.40-12.00) fL Neut % (Auto) 71.1 (48.0-80.0) % Lymph % (Auto) 16.6 (16.0-40.0) % [place] % (Auto) 7.3 (0.0-15.0) % Eos % (Auto) 4.4 (0.0-7.0) % Baso % (Auto) 0.6 (0.0-1.5) % Neut # (Auto) 7.7 H (1.4-5.7) K/uL Lymph # (Auto) 1.8 (0.6-2.4) K/uL [place] # (Auto) 0.8 (0.0-0.8) K/uL Eos # (Auto) 0.5 (0.0-0.7) K/uL Baso # (Auto) 0.1 (0.0-0.1) K/uL Nucleated RBC % 0.0 /100WBC Nucleated RBCs # 0 K/uL INR 0.98 Sodium 137 (136-145) mmol/L Potassium 4.0 (3.5-5.1) mmol/L Chloride 103 (98-107) mmol/L Carbon Dioxide 26.8 (21.0-32.0) mmol/L BUN 19 H (7.0-18.0) mg/dL Creatinine 1.0 (0.6-1.0) mg/dL Est Cr Clr Drug Dosing 3.12 mL/min Estimated GFR (MDRD) 52.4 ml/min Glucose 116 H (74-106) mg/dL Calcium 8.9 (8.5-10.1) mg/dL Total Bilirubin 0.6 (0.2-1.0) mg/dL AST 23 (15-37) IU/L ALT 17 (14-63) IU/L Alkaline Phosphatase 128 H (46-116) U/L Troponin I < 0.050 (0.000-0.056) ng/mL B-Natriuretic Peptide (<100) PG/ML Total Protein 7.6 (6.4-8.2) g/dL Albumin 3.2 L (3.4-5.0) g/dL Globulin 4.4 H (2.0-3.5) g/dL Albumin/Globulin Ratio 0.7 L (1.3-2.8) Urine Color Urine Appearance Urine pH (5.0-8.0) Ur Specific [place] (1.001-1.035) Urine Protein (NEGATIVE) mg/dL Urine Glucose (UA) (NEGATIVE) mg/dL Urine Ketones (NEGATIVE) mg/dL Urine Occult Blood (NEGATIVE) Urine Nitrite (NEGATIVE) Urine Bilirubin (NEGATIVE) Urine Urobilinogen (<2.0) EU/dL Ur Leukocyte Esterase (NEGATIVE) 03/27/18 03/27/18 Range/Units 02:47 03:26 WBC (4.0-11.0) K/uL RBC (4.30-5.90) M/uL Hgb (12.0-16.0) g/dL Hct (36.0-46.0) % MCV (80.0-98.0) fL MCH (27.0-32.0) pg MCHC (31.0-37.0) g/dL RDW Std Deviation (28.0-62.0) fl RDW Coeff of [place] (11.0-15.0) % Plt Count (150-400) K/uL MPV (7.40-12.00) fL Neut % (Auto) (48.0-80.0) % Lymph % (Auto) (16.0-40.0) % [place] % (Auto) (0.0-15.0) % Eos % (Auto) (0.0-7.0) % Baso % (Auto) (0.0-1.5) % Neut # (Auto) (1.4-5.7) K/uL Lymph # (Auto) (0.6-2.4) K/uL [place] # (Auto) (0.0-0.8) K/uL Eos # (Auto) (0.0-0.7) K/uL Baso # (Auto) (0.0-0.1) K/uL Nucleated RBC % /100WBC Nucleated RBCs # K/uL INR Sodium (136-145) mmol/L Potassium (3.5-5.1) mmol/L Chloride (98-107) mmol/L Carbon Dioxide (21.0-32.0) mmol/L BUN (7.0-18.0) mg/dL Creatinine (0.6-1.0) mg/dL Est Cr Clr Drug Dosing mL/min Estimated GFR (MDRD) ml/min Glucose (74-106) mg/dL Calcium (8.5-10.1) mg/dL Total Bilirubin (0.2-1.0) mg/dL AST (15-37) IU/L ALT (14-63) IU/L Alkaline Phosphatase (46-116) U/L Troponin I (0.000-0.056) ng/mL B-Natriuretic Peptide 1572 H (<100) PG/ML Total Protein (6.4-8.2) g/dL Albumin (3.4-5.0) g/dL Globulin (2.0-3.5) g/dL Albumin/Globulin Ratio (1.3-2.8) Urine Color YELLOW Urine Appearance CLEAR Urine pH 6.0 (5.0-8.0) Ur Specific [place] <= 1.005 (1.001-1.035) Urine Protein NEGATIVE (NEGATIVE) mg/dL Urine Glucose (UA) NEGATIVE (NEGATIVE) mg/dL Urine Ketones NEGATIVE (NEGATIVE) mg/dL Urine Occult Blood TRACE-INTACT (NEGATIVE) Urine Nitrite POSITIVE H (NEGATIVE) Urine Bilirubin NEGATIVE (NEGATIVE) Urine Urobilinogen 0.2 (<2.0) EU/dL Ur Leukocyte Esterase LARGE (NEGATIVE) Meds: Medications Generic Name Dose Route Start Last Admin Trade Name Freq PRN Reason Stop Dose Admin Sodium Chloride 1,000 mls @ 125 mls/hr 03/27/18 02:45 03/27/18 02:53 Normal Saline IV 125 mls/hr STAT TONIO Administration Ciprofloxacin/Dextrose 400 mg/ 200 mls @ 200 mls/hr 03/27/18 03:38 Premix IV 03/27/18 04:37 NOW STA Nitroglycerin 0.4 mg 03/27/18 02:36 Nitrostat SL Q5M PRN Chest Pain Discontinued Medications Generic Name Dose Route Start Last Admin Trade Name Freq PRN Reason Stop Dose Admin Albuterol/Ipratropium 3 ml 03/27/18 02:39 03/27/18 02:57 Duoneb 3.0-0.5 Mg/3 Ml NEB 03/27/18 02:40 3 ml ONETIME ONE Administration Aspirin 324 mg 03/27/18 02:32 03/27/18 02:54 Aspirin PO 03/27/18 02:33 324 mg ONETIME ONE Administration Furosemide 40 mg 03/27/18 02:54 03/27/18 03:02 Lasix IVPUSH 03/27/18 02:55 40 mg NOW ONE Administration Methylprednisolone Sodium Succinate 125 mg 03/27/18 02:39 03/27/18 02:54 Solu-Medrol IVPUSH 03/27/18 02:40 125 mg ONETIME ONE Administration Departure - Departure Time of Disposition: 03:40 Disposition: Admitted As Inpatient 66 Condition: Poor Clinical Impression: Hypoxia, Atypical chest pain, UTI (urinary tract infection), CHF, Congestive heart failure, Shortness of breath - Discharge Information Referrals: PCP,None [Primary Care Provider] - - My Orders Last 24 Hours: My Active Orders 03/27/18 02:34 EKG Documentation Completion [RC] STAT Chest 1V Frontal [CR] Stat 03/27/18 02:36 Nitroglycerin [Nitrostat] 0.4 mg SL Q5M PRN 03/27/18 02:39 RT Aerosol Therapy [RC] ASDIRECTED 03/27/18 02:45 Sodium Chloride 0.9% [Normal Saline] 1,000 ml IV STAT 03/27/18 03:26 UA W/MICROSCOPIC [URIN] Stat 03/27/18 03:38 CULTURE URINE [RM] Stat Ciprofloxacin in D5W [Cipro in D5W 400 MG/200 ML] 400 mg Premix Bag 1 bag IV NOW - Assessment/Plan Last 24 Hours: My Active Orders 03/27/18 02:34 EKG Documentation Completion [RC] STAT Chest 1V Frontal [CR] Stat 03/27/18 02:36 Nitroglycerin [Nitrostat] 0.4 mg SL Q5M PRN 03/27/18 02:39 RT Aerosol Therapy [RC] ASDIRECTED 03/27/18 02:45 Sodium Chloride 0.9% [Normal Saline] 1,000 ml IV STAT 03/27/18 03:26 UA W/MICROSCOPIC [URIN] Stat 03/27/18 03:38 CULTURE URINE [RM] Stat Ciprofloxacin in D5W [Cipro in D5W 400 MG/200 ML] 400 mg Premix Bag 1 bag IV NOW
[2018-03-27] MEDS ORDERED: Nitroglycerin 0.4 MG Tab.SL SL PRN (02:36)
[2018-03-27] MEDS ORDERED: methylPREDNISolone Sodium Succinate 125 MG/2 ML SDV IVPUSH ONE (02:39)
[2018-03-27] MEDS ORDERED: Albuterol/Ipratropium 3.0-0.5 MG/3 ML Neb Soln NEB ONE (02:39)
[2018-03-27] MEDS ORDERED: Sodium Chloride 0.9% 1,000 ML IV SCH ×2 (02:45→04:45)
[2018-03-27] MEDS ORDERED: Furosemide 40 MG/4 ML VIAL IVPUSH ONE ×2 (02:54→06:28)
[2018-03-27 03:18] LABS: CHLORIDE,CL 103 mmol/L (98-107); SODIUM,NA 137 mmol/L (136-145)
[2018-03-27] MEDS ORDERED: Ciprofloxacin in D5W 400 MG in Premix Bag 1 BAG IV STA ×2 (03:38)
[2018-03-27] MEDS ORDERED: cefTRIAXone 1,000 MG in Dextrose 5% in Water 50 ML IV SCH ×2 (06:30)
[2018-03-27] MEDS ORDERED: cefTRIAXone 1 GM in Premix Bag 1 BAG IV SCH (06:30)
[2018-03-27] MEDS ORDERED: Meclizine 25 MG Tab PO PRN (09:31)
[2018-03-27] MEDS ORDERED: cloNIDine 0.1 MG Tab PO PRN (09:31)
[2018-03-27] MEDS: Losartan 50 MG Tab PO SCH (09:56)
[2018-03-27] MEDS: Metoprolol Succinate 50 MG Tab.ER PO SCH (09:56)
[2018-03-27] MEDS: predniSONE 5 MG Tab PO SCH ×2 (09:56→10:21)
--- NOTE | 2018-03-27 10:28 | PCM.HP ---
H&P History of Present Illness - General Date of Service: 03/27/18 Admit Problem/Dx: Admission Diagnosis/Problem Admission Diagnosis/Problem Hypoxia Source of Information: Patient History Limitations: Reports: No Limitations - History of Present Illness Initial Comments - Free Text/Narative: This 87 year old female with pmh hypothyroidism, hx cardiomyopathy, HFpEF and HTN presented to the ED with complaints of chest pain and shortness of breath that started last evening, she awoke with this pain and shortness of breath. She reports she has been having increasing lower leg edema of the last couple weeks along with a dry cough. She reports the chest pain was a dull constant ache to her mid chest. It did not worsen with anything such as activity or deep breathing. She felt like she could not get air. But was able to drive her self to the ED where it was noted she was hypoxic at 78% on RA. She was scheduled to have a Lexiscan with Dr Mack but she cancelled it. This was set up secondary to fainting at home. She denies recent fever, URI symptoms, abdominal pain, urinary symptoms. She has a wound to her L lower leg from her car door this winter. It has been slow to heal, but is improving and does not cause her pain and no redness noted. In the ED no leukocytosis noted, BUN 19, Cr 1.0. BNP 1572. Troponin negative. EKG SR with PVCs, no acute ischemic changes. CXR revealed increased pulmonary vascular congestion. Perihilar subsegmental atelectasis. An ovoid right hilar density could represent vasculature. Recommend followup. Possible trace left pleural fluid. She was give lasix 40 mg in ED and admitted with acute decompensated CHF. Chest Pain Score (Numeric/FACES): 4 - Related Data Allergies/Adverse Reactions: Allergies Allergy/AdvReac Type Severity Reaction Status Date / Time azithromycin Allergy Dizziness Verified 03/27/18 02:40 cephalexin [Cephalexin] Allergy Cannot Verified 03/27/18 02:40 Remember fexofenadine Allergy Cannot Verified 03/27/18 02:40 Remember levofloxacin [From Levaquin] Allergy Cannot Verified 03/27/18 02:40 Remember lisinopril Allergy Cough Verified 03/27/18 02:40 methylprednisolone Allergy Other Verified 03/27/18 02:40 metoprolol Allergy Dizziness Verified 03/27/18 02:40 nitrofurantoin Allergy Other Verified 03/27/18 02:40 pravastatin sodium Allergy Cannot Verified 03/27/18 02:40 [From Pravachol] Remember propoxyphene napsylate Allergy Cannot Verified 03/27/18 02:40 [From Darvocet-N 100] Remember salsalate [Salsalate] Allergy Nausea Verified 03/27/18 02:40 solifenacin succinate Allergy Respiratory Verified 03/27/18 02:40 [From Vesicare] Depression Sulfa (Sulfonamide Allergy Cannot Verified 03/27/18 02:40 Antibiotics) Remember sulfamethoxazole Allergy Cannot Verified 03/27/18 02:40 Remember trimethoprim [From Septra] Allergy Mouth Sores Verified 03/27/18 02:40 Home Medications: Home Meds Levothyroxine 150 mcg PO DAILY 02/21/14 [History] Metoprolol Succinate 50 mg PO DAILY 12/11/14 [History] cloNIDine [Catapres] 0.1 mg PO Q12HR PRN 03/08/17 [History] Solifenacin Succinate [Vesicare] 10 mg PO DAILY 09/23/17 [History] atorvaSTATin [Lipitor] 20 mg PO BEDTIME 09/23/17 [History] Aspirin 81 mg PO DAILY 11/08/17 [History] Black Cohosh 1 tab PO DAILY 01/19/18 [History] Furosemide 40 mg PO DAILY 01/19/18 [History] Losartan [Cozaar] 100 mg PO DAILY 01/19/18 [History] Meclizine [Antivert] 25 mg PO TID PRN 01/19/18 [History] Potassium Chloride 10 meq PO DAILY 01/19/18 [History] Past Medical History HEENT History: Reports: Impaired Vision Other HEENT History: wears glasses Cardiovascular History: Reports: Heart Failure, High Cholesterol, Hypertension Respiratory History: Reports: None. Denies: Asthma, COPD Gastrointestinal History: Reports: None. Denies: GERD Genitourinary History: Reports: None, UTI, Recurrent. Denies: Chronic Renal Insuffiency SNOW MAKER History: Reports: None Musculoskeletal History: Reports: Osteoarthritis Neurological History: Reports: CVA Psychiatric History: Reports: None Endocrine/Metabolic History: Reports: Hypothyroidism Hematologic History: Reports: None Immunologic History: Reports: None Oncologic (Cancer) History: Reports: None Dermatologic History: Reports: None - Infectious Disease History Infectious Disease History: Reports: Chicken Pox, Measles, Mumps, Rubella - Past Surgical History Head Surgeries/Procedures: Reports: None Cardiovascular Surgical History: Reports: None Respiratory Surgical History: Reports: None GI Surgical History: Reports: None Female Surgical History: Reports: Hysterectomy Endocrine Surgical History: Reports: None Neurological Surgical History: Reports: None Musculoskeletal Surgical History: Reports: Arthroscopic Knee, Hip Replacement ( x2) Oncologic Surgical History: Reports: None Dermatological Surgical History: Reports: None Social & Family History - Family History Family Medical History: Noncontributory - Tobacco Use Smoking Status *Q: Never Smoker Second Hand Smoke Exposure: No - Caffeine Use Caffeine Use: Reports: Coffee Caffeine Use Comment: 3cups/day - Alcohol Use Alcohol Use History: No - Recreational Drug Use Recreational Drug Use: No - Living Situation & Occupation Living situation: Reports: Occupation: Retired H&P Review of Systems - Review of Systems: Review Of Systems: See Below General: Reports: No Symptoms. Denies: Fever, Chills, Malaise, Weakness HEENT: Reports: No Symptoms. Denies: Headaches, Sore Throat, Visual Changes Pulmonary: Reports: Shortness of Breath, Cough (dry hacking). Denies: Wheezing , Sputum Cardiovascular: Reports: Chest Pain, Dyspnea on Exertion, Orthopnea, Edema ( bilateral lower legs.). Denies: Palpitations, Lightheadedness Gastrointestinal: Reports: No Symptoms. Denies: Abdominal Pain, Black Stool, Bloody Stool, Nausea, Vomiting Genitourinary: Reports: Frequency. Denies: Dysuria Musculoskeletal: Reports: No Symptoms Skin: Reports: Wound (L lower leg, since winter. Improving slowly. ) Neurological: Reports: No Symptoms Hematologic/Lymphatic: Reports: No Symptoms Immunologic: Reports: No Symptoms Exam - Exam Exam: See Below - Vital Signs Vital Signs: Last Vital Signs Temp 97.8 F 03/27/18 08:00 Pulse 83 03/27/18 09:56 Resp 18 03/27/18 08:00 BP 131/82 03/27/18 09:56 Pulse Ox 95 03/27/18 08:00 Weight: 58.5 kg - Exam General: Alert, Oriented, Cooperative HEENT: Conjunctiva Clear, Posterior Pharynx Clear Neck: Supple, Trachea Midline, JVD Lungs: Clear to Auscultation, Normal Respiratory Effort Cardiovascular: Regular Rate, Regular Rhythm, Normal S1, Normal S2 GI/Abdominal Exam: Normal Bowel Sounds, Soft, Non-Tender, No Organomegaly, No Distention, No Abnormal Bruit, No Mass, Pelvis Stable Back Exam: Normal Inspection, Full Range of Motion, NT Extremities: Normal Range of Motion, Pedal Edema (+2 pitting edema to bilateral lower legs. ) Skin: Wound (L lower posterior calf. Healing wound, with scabbed region, no fluctuance or pain and no erythema. 0.5 in circumference. ) Neuro Extensive - Mental Status: Alert, Oriented x3, Normal Mood/Affect, Normal Cognition Neuro Extensive - Motor, Sensory, Reflexes: CN II-XII Intact Psychiatric: Alert, Normal Affect, Normal Mood - Patient Data Lab Results Last 24 hrs: Laboratory Results - last 24 hr 03/27/18 03/27/18 03/27/18 Range/Units 02:47 02:47 02:47 WBC 10.77 (4.0-11.0) K/uL RBC 3.58 L (4.30-5.90) M/uL Hgb 11.4 L (12.0-16.0) g/dL Hct 34.7 L (36.0-46.0) % MCV 96.9 (80.0-98.0) fL MCH 31.8 (27.0-32.0) pg MCHC 32.9 (31.0-37.0) g/dL RDW Std Deviation 54.1 (28.0-62.0) fl RDW Coeff of Tigre 15 (11.0-15.0) % Plt Count 256 (150-400) K/uL MPV 9.90 (7.40-12.00) fL Neut % (Auto) 71.1 (48.0-80.0) % Lymph % (Auto) 16.6 (16.0-40.0) % Kleberg % (Auto) 7.3 (0.0-15.0) % Eos % (Auto) 4.4 (0.0-7.0) % Baso % (Auto) 0.6 (0.0-1.5) % Neut # (Auto) 7.7 H (1.4-5.7) K/uL Lymph # (Auto) 1.8 (0.6-2.4) K/uL Kleberg # (Auto) 0.8 (0.0-0.8) K/uL Eos # (Auto) 0.5 (0.0-0.7) K/uL Baso # (Auto) 0.1 (0.0-0.1) K/uL Nucleated RBC % 0.0 /100WBC Nucleated RBCs # 0 K/uL INR 0.98 Sodium 137 (136-145) mmol/L Potassium 4.0 (3.5-5.1) mmol/L Chloride 103 (98-107) mmol/L Carbon Dioxide 26.8 (21.0-32.0) mmol/L BUN 19 H (7.0-18.0) mg/dL Creatinine 1.0 (0.6-1.0) mg/dL Est Cr Clr Drug Dosing 3.12 mL/min Estimated GFR (MDRD) 52.4 ml/min Glucose 116 H (74-106) mg/dL Calcium 8.9 (8.5-10.1) mg/dL Magnesium (1.5-2.0) mg/dL Total Bilirubin 0.6 (0.2-1.0) mg/dL AST 23 (15-37) IU/L ALT 17 (14-63) IU/L Alkaline Phosphatase 128 H (46-116) U/L Troponin I < 0.050 (0.000-0.056) ng/mL B-Natriuretic Peptide (<100) PG/ML Total Protein 7.6 (6.4-8.2) g/dL Albumin 3.2 L (3.4-5.0) g/dL Globulin 4.4 H (2.0-3.5) g/dL Albumin/Globulin Ratio 0.7 L (1.3-2.8) Urine Color Urine Appearance Urine pH (5.0-8.0) Ur Specific [place] (1.001-1.035) Urine Protein (NEGATIVE) mg/dL Urine Glucose (UA) (NEGATIVE) mg/dL Urine Ketones (NEGATIVE) mg/dL Urine Occult Blood (NEGATIVE) Urine Nitrite (NEGATIVE) Urine Bilirubin (NEGATIVE) Urine Urobilinogen (<2.0) EU/dL Ur Leukocyte Esterase (NEGATIVE) Urine RBC (0-2/HPF) Urine WBC (0-5/HPF) Ur Epithelial Cells (NONE-FEW) Urine Bacteria (NEGATIVE) 03/27/18 03/27/18 03/27/18 Range/Units 02:47 02:47 03:26 WBC (4.0-11.0) K/uL RBC (4.30-5.90) M/uL Hgb (12.0-16.0) g/dL Hct (36.0-46.0) % MCV (80.0-98.0) fL MCH (27.0-32.0) pg MCHC (31.0-37.0) g/dL RDW Std Deviation (28.0-62.0) fl RDW Coeff of Tigre (11.0-15.0) % Plt Count (150-400) K/uL MPV (7.40-12.00) fL Neut % (Auto) (48.0-80.0) % Lymph % (Auto) (16.0-40.0) % Kleberg % (Auto) (0.0-15.0) % Eos % (Auto) (0.0-7.0) % Baso % (Auto) (0.0-1.5) % Neut # (Auto) (1.4-5.7) K/uL Lymph # (Auto) (0.6-2.4) K/uL Kleberg # (Auto) (0.0-0.8) K/uL Eos # (Auto) (0.0-0.7) K/uL Baso # (Auto) (0.0-0.1) K/uL Nucleated RBC % /100WBC Nucleated RBCs # K/uL INR Sodium (136-145) mmol/L Potassium (3.5-5.1) mmol/L Chloride (98-107) mmol/L Carbon Dioxide (21.0-32.0) mmol/L BUN (7.0-18.0) mg/dL Creatinine (0.6-1.0) mg/dL Est Cr Clr Drug Dosing mL/min Estimated GFR (MDRD) ml/min Glucose (74-106) mg/dL Calcium (8.5-10.1) mg/dL Magnesium 2.0 (1.5-2.0) mg/dL Total Bilirubin (0.2-1.0) mg/dL AST (15-37) IU/L ALT (14-63) IU/L Alkaline Phosphatase (46-116) U/L Troponin I (0.000-0.056) ng/mL B-Natriuretic Peptide 1572 H (<100) PG/ML Total Protein (6.4-8.2) g/dL Albumin (3.4-5.0) g/dL Globulin (2.0-3.5) g/dL Albumin/Globulin Ratio (1.3-2.8) Urine Color YELLOW Urine Appearance CLEAR Urine pH 6.0 (5.0-8.0) Ur Specific [place] <= 1.005 (1.001-1.035) Urine Protein NEGATIVE (NEGATIVE) mg/dL Urine Glucose (UA) NEGATIVE (NEGATIVE) mg/dL Urine Ketones NEGATIVE (NEGATIVE) mg/dL Urine Occult Blood TRACE-INTACT (NEGATIVE) Urine Nitrite POSITIVE H (NEGATIVE) Urine Bilirubin NEGATIVE (NEGATIVE) Urine Urobilinogen 0.2 (<2.0) EU/dL Ur Leukocyte Esterase LARGE (NEGATIVE) Urine RBC 1-3 (0-2/HPF) Urine WBC 40-50 (0-5/HPF) Ur Epithelial Cells OCCASIONAL (NONE-FEW) Urine Bacteria 3+ H (NEGATIVE) Result Diagrams: 03/27/18 02:47 03/27/18 02:47 EKG INTERPRETATION EKG Date: 03/27/18 Rhythm: NSR QRS: Normal ST-T: Normal *Q Meaningful Use (ADM) - VTE Risk Assess *Q Each Risk Factor Represents 1 Point: Obesity ( BMI > 25 kg/m2), Congestive heart failure (CHF) Total Score 1 Point Risk Factors: 2 Each Risk Factor Represents 2 Points: None Total Score 2 Point Risk Factors: 0 Each Risk Factor Represents 3 Points: Age 75 Years or Greater Total Score 3 Point Risk Factors: 3 Each Risk Factor Represents 5 Points: None Total Score 5 Point Risk Factors: 0 Venous Thromboembolism Risk Factor Score *Q: 5 - Problem List (1) Atypical chest pain SNOMED Code(s): 292941223 ICD Code: R07.89 - OTHER CHEST PAIN Status: Acute Current Visit: Yes (2) Hypoxia SNOMED Code(s): 203911916 ICD Code: R09.02 - HYPOXEMIA Status: Acute Current Visit: Yes (3) CHF, Congestive heart failure SNOMED Code(s): 88623769 ICD Code: I50.9 - HEART FAILURE, UNSPECIFIED Status: Acute Current Visit : Yes (4) UTI (urinary tract infection) SNOMED Code(s): 06249308 ICD Code: N39.0 - URINARY TRACT INFECTION, SITE NOT SPECIFIED Status: Acute Current Visit: Yes Qualifiers: Urinary tract infection type: acute cystitis Hematuria presence: without hematuria Qualified Code(s): N30.00 - Acute cystitis without hematuria (5) HTN, Essential hypertension SNOMED Code(s): 93958526 ICD Code: I10 - ESSENTIAL (PRIMARY) HYPERTENSION Status: Chronic Current Visit: No (6) Hypothyroidism SNOMED Code(s): 38890328 ICD Code: E03.9 - HYPOTHYROIDISM, UNSPECIFIED Status: Chronic Current Visit: No Problem List Initiated/Reviewed/Updated: Yes Orders Last 24hrs: Active Orders 24 hr Category Date Time Status Admission Status [Patient Status] [ADT] Stat ADT 03/27/18 03:41 Active Daily Weight [Height and Weight] [RC] DAILY Care 03/27/18 09:31 Active EKG Documentation Completion [RC] STAT Care 03/27/18 02:34 Active Intake and Output Strict [RC] Q12H Care 03/27/18 06:28 Active RT Aerosol Therapy [RC] ASDIRECTED Care 03/27/18 02:39 Active Telemetry Monitoring [Cardiac Monitoring] [RC] . Care 03/27/18 03:45 Active DIRECTED Cardiac [Heart Healthy Diet] [DIET] Diet 03/27/18 Breakfast Active Chest 1V Frontal [CR] Stat Exams 03/27/18 02:34 Taken Echo Comp wo Cont [US] Routine Exams 03/27/18 06:28 Taken BASIC METABOLIC PANEL,BMP [CHEM] AM Lab 03/28/18 05:11 Ordered BASIC METABOLIC PANEL,BMP [CHEM] AM Lab 03/29/18 05:11 Ordered BASIC METABOLIC PANEL,BMP [CHEM] AM Lab 03/30/18 05:11 Ordered CBC WITH AUTO DIFF [HEME] AM Lab 03/28/18 05:11 Ordered CBC WITH AUTO DIFF [HEME] AM Lab 03/29/18 05:11 Ordered CBC WITH AUTO DIFF [HEME] AM Lab 03/30/18 05:11 Ordered CULTURE URINE [RM] Stat Lab 03/27/18 03:26 Received MAGNESIUM [CHEM] AM Lab 03/28/18 05:11 Ordered MAGNESIUM [CHEM] AM Lab 03/29/18 05:11 Ordered MAGNESIUM [CHEM] AM Lab 03/30/18 05:11 Ordered UA W/MICROSCOPIC [URIN] Stat Lab 03/27/18 03:26 Ordered Aspirin Med 03/28/18 09:00 Active 81 mg PO DAILY Furosemide [Lasix] Med 03/27/18 14:00 Active 40 mg IVPUSH BIDDIURETIC Levothyroxine Med 03/28/18 09:00 Active 150 mcg PO DAILY Losartan [Cozaar] Med 03/27/18 09:35 Active 100 mg PO DAILY Meclizine [Antivert] Med 03/27/18 09:31 Active 25 mg PO TID PRN Metoprolol Succinate [Toprol XL] Med 03/27/18 09:35 Active 50 mg PO DAILY Nitroglycerin [Nitrostat] Med 03/27/18 02:36 Active 0.4 mg SL Q5M PRN Patient's Own Medication [Ptom] Med 03/28/18 09:00 Active 1 each PO DAILY Patient's Own Medication [Ptom] Med 03/28/18 09:00 Active 1 each PO DAILY atorvaSTATin [Lipitor] Med 03/27/18 21:00 Active 20 mg PO BEDTIME cefTRIAXone [Rocephin] 1,000 mg Med 03/27/18 06:30 Active Dextrose 5% in Water 50 ml IV Q24H cloNIDine [Catapres] Med 03/27/18 09:31 Active 0.1 mg PO Q12HR PRN Medication Orders Aspirin (Aspirin) 81 mg PO DAILY TONIO Atorvastatin Calcium (Lipitor) 20 mg PO BEDTIME TONIO Clonidine HCl (Catapres) 0.1 mg PO Q12HR PRN PRN Reason: Hypertension Furosemide (Lasix) 40 mg IVPUSH BIDDIURETIC [facility] Ceftriaxone Sodium 1,000 mg/ (Dextrose/Water) 50 mls @ 100 mls/hr IV Q24H [facility] Last Admin: 03/27/18 06:49 Dose: 100 mls/hr Levothyroxine Sodium (Levothyroxine) 150 mcg PO DAILY [facility] Losartan Potassium (Cozaar) 100 mg PO DAILY [facility] Last Admin: 03/27/18 09:56 Dose: 100 mg Meclizine HCl (Antivert) 25 mg PO TID PRN PRN Reason: Dizziness Metoprolol Succinate (Toprol Xl) 50 mg PO DAILY [facility] Last Admin: 03/27/18 09:56 Dose: 50 mg Nitroglycerin (Nitrostat) 0.4 mg SL Q5M PRN PRN Reason: Chest Pain Black Cohosh [Black (Cohosh] 1 Tab) 1 each PO DAILY TONIO Solifenacin Succinate [Vesicare] 10 Mg 1 each PO DAILY TONIO Assessment/Plan Comment:: This 87 year old female admitted with atypical chest pain, hypoxia and acute decompensated heart failure. 1. Acute decompensated CHF: Repeat ECHO pending. Last ECHO 02/18/2017 revealed LV EF 55%, pseudonormal pattern of LV diastolic filling, severely dilated left atrium, mild aortic sclerosis, mild to mod MR, R ventricular systolic pressure is mod to severely elevated 59.[address] Mack consulted and saw patient. Continue to [place] with Lasix 40 mg IV BID. Strict I/O, Armani weights , Low Na diet and 2 L FR. Continue Metoprolol. No longer needing oxygen this morning, 95% on RA after diuresis. Trend troponins due to chest pain and monitor on telemetry. Supplement Potassium and Mag as needed. Continue ASA and statin. Elevated legs as possible and place compression stockings. 2. HTN: Stable. Continue Clonidine PRN. Continue Metoprolol. 3. UTI: UC pending. Rocephin 1 gm IV given. 4.Hypothyroidism: Stable. Continue Levothyroxine. VTE prophylaxis: Heparin Dispo: 2-3 days pending improvement with diuresis.
--- NOTE | 2018-03-27 11:51 | CONS ---
DATE OF CONSULTATION: DATE OF : 1930 PRIMARY CARE PHYSICIAN: None PCP PRIMARY CARE DOCTOR: Dr. Roper. REASON FOR CONSULTATION: Heart failure. HISTORY: This is an 87-year-old female with history of hypertension, hypothyroidism, cardiomyopathy, and history of syncope. I have seen her in the past. She is supposed to have a stress test, the Lexiscan, scheduled. However, she canceled it. She is in the hospital at this time due to increasing shortness of breath and some tightness in her chest. She stated that, over the past two weeks, her leg got more swollen. She has baseline some tiredness and fatigue, likely intermittent shortness of breath. However, the leg swelling has been increasing. Last night, around 11 p.m., she started having increasing shortness of breath. She tried to sit up from lying; however, her shortness of breath was still there, never went away. She feels slight tightness in her chest as well. No heart racing. No dizziness. When she got into the emergency room, her O2 saturation was down to 78. She had Lasix of 20 followed by 40, and then she got admitted to the hospital. I saw her as an outpatient. She complained about having a syncopal episode. She was scheduled to have the Lexiscan; however, she canceled it. She thought her Medicare would not cover for the Lexiscan. Currently, after diuresing, her breathing seemed to be better. She makes a good urine. She did not have any chest pain. PAST MEDICAL HISTORY: Heart failure, preserved ejection fraction; hypertension; LVH; hypothyroidism; history of arthritis; history of recent fall; and history of recurrent UTIs. SOCIAL HISTORY: She was a former smoker. No illicit drug use. Occasional alcohol use. REVIEW OF SYSTEMS: Positive for palpitation, shortness of breath, and chest tightness. PHYSICAL EXAMINATION: VITAL SIGNS: Initial blood pressure 118/77, elevated to 185/100, but right now is back down to 131/82. Heart rate of 70 to 80. O2 saturation initially of 78% on room air and currently is 91 on 6 L. Respirations 18. HEENT: Mildly pale. Mouth dry. JVD positive. No jaundice. HEART: Normal S1, S2. No murmur. LUNGS: Crackles bilaterally. No wheezing. ABDOMEN: Soft and nontender. Bowel sounds present. No hepatosplenomegaly. EXTREMITIES: Legs, edema 3+ bilaterally with the healing wound on the left leg. IMAGING: Echocardiogram in 2014 showed ejection fraction of 40% to 45%, [id number] MR, mild TR. Echocardiogram in October 2017, ejection fraction of 70%. Mild MR, mild TR, and mild AR. Echocardiogram in February 2017 showed ejection fraction of 55%. Elevated RVSP, diastolic dysfunction. Lexiscan in February 2017, stress ejection fraction of 60% and post-stress ejection fraction of 63%. Fixed severe perfusion defect from [id number] portion inferior wall with partial reversible of the basal to apical lateral wall. EKG in November 2017 did show sinus rhythm with PVCs, ST abnormalities in II, III and aVF, and also in V3 to V6. EKG in March 2018 shows abnormality in II, III and aVF, V3 to V6, sinus rhythm. QRS duration of 83, is unchanged from previous EKG. Labs Na 137 K 4 Cl 103 Co2 26 BUN 19 Cr 1 INR 0.98 BNP 1571 Trop neg x 1 CBC 10 HCT 34 Plt 256 Hb 11 ASSESSMENT AND PLAN: This is an 87-year-old female with history of hypertension; left ventricular hypertrophy; hypothyroidism; history of cardiomyopathy in the past, currently with preserved ejection fraction; history of heart failure, preserved ejection fraction; history of syncope; who presented to hospital with shortness of breath, chest tightness with decompensated heart failure. 1. Decompensated heart failure, probably diastolic dysfunction. We will repeat an echocardiogram and recommended to continue diuresing her with Lasix 40 mg IV twice a day. Her medications at home include clonidine 0.1 every 12 hours p.r.n. for blood pressure more than 160/90, Lasix 40 mg once a day, Lipitor 20 mg once a day, and metoprolol succinate 50 mg once a day. Recommended to continue the metoprolol succinate as well. She needs to be cycled for cardiac enzymes for troponin. She would need to have the Lexiscan stress test to be repeated. She needs to be restricted for the fluid less than 2 L. She should be on a low-salt diet. 2. For urinary tract infection, she is currently being treated for UTI with ceftriaxone. JOSUE / ERVIN /[id number] MTDD
[2018-03-27] MEDS: Furosemide 40 MG/4 ML VIAL IVPUSH SCH (13:11)
[2018-03-27] MEDS: Heparin Sodium 5,000 Units/ML Vial SUBCUT SCH (13:14)
[2018-03-27 13:28] LABS: CHLORIDE,CL 98 mmol/L (98-107); SODIUM,NA 137 mmol/L (136-145)
[2018-03-27] MEDS ORDERED: Potassium Chloride 20 MEQ Tab.ER PO ONE ×2 (13:32→17:30)
--- NOTE | 2018-03-27 17:26 | CR ---
EXAM DATE: 03/27/18 PATIENT'S AGE: 87 Patient: MAIDA ANDERSEN Facility: [place], [place] Site . Site : 1930 Study: XRay Chest [id number]/25/2018 2:45:54 AM Ordering Physician: Doctor Clements Final Report: Indication: Chest pain. SOB Technique: Chest 1 view Comparison: 11/08/2017. Findings/Impression: Cardiovascular and mediastinum: Stable cardiomediastinal silhouette. An ectatic , unfolded and calcified aorta again seen. Lungs and pleural space: Increased pulmonary vascular congestion. Perihilar subsegmental atelectasis. An ovoid right hilar density could represent vasculature. Recommend followup. Possible trace left pleural fluid. Bones and soft tissues: No significant change. Dictated by John Bourgeois MD @ 03/27/2018 3:34:34 AM Dictated by: John Bourgeois MD @ 03/27/2018 03:34:38 (Electronic Signature) Report Signed by Proxy. JOHN [facility]. [facility] CHILDR[facility]S HOSPITALPushpa
[2018-03-27] MEDS ORDERED: predniSONE 5 MG Tab PO SCH (18:00)
[2018-03-27] MEDS ORDERED: atorvaSTATin 20 MG Tab PO SCH (21:00)
[2018-03-28] MEDS: Heparin Sodium 5,000 Units/ML Vial SUBCUT SCH ×2 (00:23→13:46)
[2018-03-28] MEDS ORDERED: cefTRIAXone 1 GM in Sodium Chloride 0.9% 50 ML IV SCH (06:30)
[2018-03-28] MEDS: Losartan 50 MG Tab PO SCH (08:04)
[2018-03-28] MEDS: Metoprolol Succinate 50 MG Tab.ER PO SCH (08:04)
[2018-03-28] MEDS: Furosemide 40 MG/4 ML VIAL IVPUSH SCH (08:06)
[2018-03-28] MEDS ORDERED: Aspirin 81 MG Tab.Chew PO SCH (09:00)
[2018-03-28] MEDS ORDERED: Solifenacin Succinate [Vesicare] 10 MG PO SCH (09:00)
[2018-03-28] MEDS ORDERED: BLACK COHOSH PO SCH (09:00)
[2018-03-28] MEDS ORDERED: Levothyroxine 150 MCG Tab PO SCH (09:00)
--- NOTE | 2018-03-28 12:20 | PCM.DCSUM1 ---
Discharge Summary - Hospital Course Free Text/Narrative:: Patient 87 years old female with CHF systolic , preserved EF at 70% presented to the hospital because of shortness of breath , was found to have 78% oxygen saturation , at admission. Patient in the emergency room received diuresis and she was placed on oxygen 6 L NC and her O2 saturation improved and she was also found to have a urinary tract infection for which she was started on Ceftriaxone 1 gram iv q 24h . She was seen by overlay operator in the morning and he recommended the patient to continue diuresis with Lasix 40 mg IV twice a day and follow-up with him for echo and stress Patient was supposed to have appointment the day of admission with Dr. Eid .Over the past 24 hours she diuresed i 5 L of fluids. Oxygen saturation improved today 95 percent on room air . Patient is stable for discharge she to continue Lasix 40 mg by mouth twice a day at home and potassium chloride 20 mg by mouth daily. Her home medications were resumed and they were also continued during her hospital stay. Thyroid hormone TSH was elevated and also free T4 . Patient levothyroxine was decreased to 125 mg by mouth daily patient to follow-up with her primary care physician regarding her thyroid function . Currently she said she did not have any recent change in her thyroid medications , her last blood work for thyroid function was done was few months ago. HPI Initial Comments: This 87 year old female with pmh hypothyroidism, hx cardiomyopathy, HFpEF and HTN presented to the ED with complaints of chest pain and shortness of breath that started last evening, she awoke with this pain and shortness of breath. She reports she has been having increasing lower leg edema of the last couple weeks along with a dry cough. She reports the chest pain was a dull constant ache to her mid chest. It did not worsen with anything such as activity or deep breathing. She felt like she could not get air. But was able to drive her self to the ED where it was noted she was hypoxic at 78% on RA. She was scheduled to have a Lexiscan with Dr Mack but she cancelled it. This was set up secondary to fainting at home. She denies recent fever, URI symptoms, abdominal pain, urinary symptoms. She has a wound to her L lower leg from her car door this winter. It has been slow to heal, but is improving and does not cause her pain and no redness noted. In the ED no leukocytosis noted, BUN 19, Cr 1.0. BNP 1572. Troponin negative. EKG SR with PVCs, no acute ischemic changes. CXR revealed increased pulmonary vascular congestion. Perihilar subsegmental atelectasis. An ovoid right hilar density could represent vasculature. Recommend followup. Possible trace left pleural fluid. She was give lasix 40 mg in ED and admitted with acute decompensated CHF. Chest - Discharge Data Discharge Date: 03/28/18 Discharge Disposition: Home, Self-Care 01 Condition: Good - Patient Summary/Data Consults: Dr. Eid , Cardiology Hospital Course: patient is 7 years old female admitted in the hospital with hypoxemia and CHF exacerbationurinary tract infection, she was diuresed with Lasix 40 mg twia day but overlay operator consult, but oxygen saturation improved to 95% to resume her today. Patient is ting well diet and she is feeling well Heart status function test, TSH was elevated and that the free T4 was elevated to and her levothyroxine was decreased to 125 mg by mouth daily patient - Patient Instructions Diet: Heart Healthy Diet, Low Sodium Fluid Restriction: 2000 mL Activity: As Tolerated Driving: May Drive Today Showering/Bathing: May Shower - Discharge Plan Prescriptions/Med Rec: Cephalexin [Keflex] 500 mg PO BID #10 cap Furosemide [Lasix] 40 mg PO BID 30 Days #60 tab Levothyroxine 125 mcg PO ACBREAKFAST #90 tab Potassium Chloride 20 meq PO DAILY #30 tablet.er Home Medications: Home Meds Metoprolol Succinate 50 mg PO DAILY 12/11/14 [History] cloNIDine [Catapres] 0.1 mg PO Q12HR PRN 03/08/17 [History] Solifenacin Succinate [Vesicare] 10 mg PO DAILY 09/23/17 [History] atorvaSTATin [Lipitor] 20 mg PO BEDTIME 09/23/17 [History] Aspirin 81 mg PO DAILY 11/08/17 [History] Losartan [Cozaar] 100 mg PO DAILY 01/19/18 [History] Meclizine [Antivert] 25 mg PO TID PRN 01/19/18 [History] Cephalexin [Keflex] 500 mg PO BID #10 cap 03/28/18 [Rx] Furosemide [Lasix] 40 mg PO BID 30 Days #60 tab 03/28/18 [Rx] Levothyroxine 125 mcg PO ACBREAKFAST #90 tab 03/28/18 [Rx] Potassium Chloride 20 meq PO DAILY #30 tablet.er 03/28/18 [Rx] Patient Handouts: Furosemide tablets, Shortness of Breath, Adult, [id number] , Levothyroxine tablets, Potassium Salts tablets, extended-release tablets or capsules, Cephalexin tablets or capsules Referrals: [facility] [Outside] Paty Mack MD [Physician] - 04/09/18 2:30 pm Ruy Roper MD [Ordering Only Provider] - 04/06/18 12:30 pm - Review of Systems General: Reports: No Symptoms HEENT: Reports: No Symptoms Pulmonary: Reports: No Symptoms Cardiovascular: Reports: No Symptoms, Edema (trace edema b/feet) Gastrointestinal: Reports: No Symptoms Genitourinary: Reports: No Symptoms Musculoskeletal: Reports: No Symptoms Skin: Reports: No Symptoms Psychiatric: Reports: No Symptoms - Patient Data Vitals - Most Recent: Last Vital Signs Temp 98.9 F 03/28/18 08:00 Pulse 83 03/28/18 08:04 Resp 16 03/28/18 08:00 BP 138/84 03/28/18 08:04 Pulse Ox 95 03/28/18 08:00 Weight - Most Recent: 116 lb 2.938 oz I&O - Last 24 hours: Intake & Output 03/27/18 03/28/18 03/28/18 22:59 06:59 14:59 Intake Total 980 1010 Output Total 3800 1800 Balance -2820 -790 Lab Results - Last 24 hrs: Laboratory Results - last 24 hr 03/27/18 03/27/18 03/28/18 Range/Units 12:08 12:13 05:37 WBC 10.86 (4.0-11.0) K/uL RBC 3.49 L (4.30-5.90) M/uL Hgb 10.8 L (12.0-16.0) g/dL Hct 33.3 L (36.0-46.0) % MCV 95.4 (80.0-98.0) fL MCH 30.9 (27.0-32.0) pg MCHC 32.4 (31.0-37.0) g/dL RDW Std Deviation 52.8 (28.0-62.0) fl RDW Coeff of Tigre 15 (11.0-15.0) % Plt Count 241 (150-400) K/uL MPV 10.10 (7.40-12.00) fL Neut % (Auto) 79.7 (48.0-80.0) % Lymph % (Auto) 12.6 L (16.0-40.0) % [place] % (Auto) 7.6 (0.0-15.0) % Eos % (Auto) 0.1 (0.0-7.0) % Baso % (Auto) 0.0 (0.0-1.5) % Neut # (Auto) 8.7 H (1.4-5.7) K/uL Lymph # (Auto) 1.4 (0.6-2.4) K/uL [place] # (Auto) 0.8 (0.0-0.8) K/uL Eos # (Auto) 0.0 (0.0-0.7) K/uL Baso # (Auto) 0.0 (0.0-0.1) K/uL Nucleated RBC % 0.0 /100WBC Nucleated RBCs # 0 K/uL Sodium 137 (136-145) mmol/L Potassium 3.3 L (3.5-5.1) mmol/L Chloride 98 (98-107) mmol/L Carbon Dioxide 26.5 (21.0-32.0) mmol/L BUN 18 (7.0-18.0) mg/dL Creatinine 1.1 H (0.6-1.0) mg/dL Est Cr Clr Drug Dosing 25.88 mL/min Estimated GFR (MDRD) 47.0 ml/min Glucose 179 H (74-106) mg/dL Calcium 8.8 (8.5-10.1) mg/dL Magnesium 1.9 (1.5-2.0) mg/dL Troponin I < 0.050 (0.000-0.056) ng/mL Free T4 (0.76-1.46) ng/dL TSH 3rd Generation 7.16 H (0.36-3.74) uIU/mL 03/28/18 03/28/18 Range/Units 05:37 09:02 WBC (4.0-11.0) K/uL RBC (4.30-5.90) M/uL Hgb (12.0-16.0) g/dL Hct (36.0-46.0) % MCV (80.0-98.0) fL MCH (27.0-32.0) pg MCHC (31.0-37.0) g/dL RDW Std Deviation (28.0-62.0) fl RDW Coeff of Tigre (11.0-15.0) % Plt Count (150-400) K/uL MPV (7.40-12.00) fL Neut % (Auto) (48.0-80.0) % Lymph % (Auto) (16.0-40.0) % [place] % (Auto) (0.0-15.0) % Eos % (Auto) (0.0-7.0) % Baso % (Auto) (0.0-1.5) % Neut # (Auto) (1.4-5.7) K/uL Lymph # (Auto) (0.6-2.4) K/uL [place] # (Auto) (0.0-0.8) K/uL Eos # (Auto) (0.0-0.7) K/uL Baso # (Auto) (0.0-0.1) K/uL Nucleated RBC % /100WBC Nucleated RBCs # K/uL Sodium 139 (136-145) mmol/L Potassium 4.3 (3.5-5.1) mmol/L Chloride 103 (98-107) mmol/L Carbon Dioxide 30.0 (21.0-32.0) mmol/L BUN 21 H (7.0-18.0) mg/dL Creatinine 1.0 (0.6-1.0) mg/dL Est Cr Clr Drug Dosing 28.47 mL/min Estimated GFR (MDRD) 52.4 ml/min Glucose 110 H (74-106) mg/dL Calcium 8.0 L (8.5-10.1) mg/dL Magnesium 1.8 (1.5-2.0) mg/dL Troponin I (0.000-0.056) ng/mL Free T4 1.59 H (0.76-1.46) ng/dL TSH 3rd Generation (0.36-3.74) uIU/mL Med Orders - Current: Current Medications Aspirin (Aspirin) 81 mg PO DAILY [facility] Last Admin: 03/28/18 08:04 Dose: 81 mg Atorvastatin Calcium (Lipitor) 20 mg PO BEDTIME [facility] Last Admin: 03/27/18 21:22 Dose: 20 mg Clonidine HCl (Catapres) 0.1 mg PO Q12HR PRN PRN Reason: Hypertension Furosemide (Lasix) 40 mg IVPUSH BIDDIURETIC [facility] Last Admin: 03/28/18 08:06 Dose: 40 mg Heparin Sodium (Porcine) (Heparin Sodium) 5,000 units SUBCUT Q12H [facility] Last Admin: 03/28/18 00:23 Dose: 5,000 units Ceftriaxone Sodium 1 gm/ (Sodium Chloride) 50 mls @ 100 mls/hr IV Q24H [facility] Last Admin: 03/28/18 05:31 Dose: 100 mls/hr Levothyroxine Sodium (Levothyroxine) 150 mcg PO DAILY [facility] Last Admin: 03/28/18 08:04 Dose: 150 mcg Losartan Potassium (Cozaar) 100 mg PO DAILY [facility] Last Admin: 03/28/18 08:04 Dose: 100 mg Magnesium Oxide (Magnesium Oxide) 400 mg PO Q24H [facility] Meclizine HCl (Antivert) 25 mg PO TID PRN PRN Reason: Dizziness Metoprolol Succinate (Toprol Xl) 50 mg PO DAILY [facility] Last Admin: 03/28/18 08:04 Dose: 50 mg Nitroglycerin (Nitrostat) 0.4 mg SL Q5M PRN PRN Reason: Chest Pain Solifenacin Succinate [Vesicare] 10 Mg 1 each PO DAILY [facility] Last Admin: 03/28/18 09:42 Dose: Not Given Discontinued Medications Albuterol/Ipratropium (Duoneb 3.0-0.5 Mg/3 Ml) 3 ml NEB ONETIME ONE Stop: 03/27/18 02:40 Last Admin: 03/27/18 02:57 Dose: 3 ml Aspirin (Aspirin) 324 mg PO ONETIME ONE Stop: 03/27/18 02:33 Last Admin: 03/27/18 02:54 Dose: 324 mg Furosemide (Lasix) 40 mg IVPUSH NOW ONE Stop: 03/27/18 02:55 Last Admin: 03/27/18 03:02 Dose: 40 mg Furosemide (Lasix) 80 mg IVPUSH ONETIME ONE Stop: 03/27/18 06:29 Last Admin: 03/27/18 06:44 Dose: 80 mg Sodium Chloride (Normal Saline) 1,000 mls @ 125 mls/hr IV STAT [facility] Last Admin: 03/27/18 02:53 Dose: 125 mls/hr Ciprofloxacin/Dextrose 400 mg/ (Premix) 200 mls @ 200 mls/hr IV NOW STA Stop: 03/27/18 04:37 Last Admin: 03/27/18 03:51 Dose: 200 mls/hr Sodium Chloride (Normal Saline) 1,000 mls @ 80 mls/hr IV ASDIRECTED [facility] Last Admin: 03/27/18 04:50 Dose: 80 mls/hr Ceftriaxone Sodium/Dextrose 1 (gm/ Premix) 50 mls @ 100 mls/hr IV Q24H [facility] Last Admin: 03/27/18 06:59 Dose: Not Given Ceftriaxone Sodium 1,000 mg/ (Dextrose/Water) 50 mls @ 100 mls/hr IV Q24H [facility] Last Admin: 03/27/18 06:49 Dose: 100 mls/hr Methylprednisolone Sodium Succinate (Solu-Medrol) 125 mg IVPUSH ONETIME ONE Stop: 03/27/18 02:40 Last Admin: 03/27/18 02:54 Dose: 125 mg Potassium Chloride (Klor-Con M20) 40 meq PO ONETIME ONE Stop: 03/27/18 13:33 Last Admin: 03/27/18 14:14 Dose: 40 meq Potassium Chloride (Klor-Con M20) 40 meq PO ONETIME ONE Stop: 03/27/18 17:31 Last Admin: 03/27/18 16:57 Dose: 40 meq Prednisone (Prednisone) 2.5 mg PO QPM [facility] Prednisone (Prednisone) 5 mg PO QAM [facility] Last Admin: 03/27/18 10:21 Dose: Not Given - Exam General: Reports: Alert, Oriented HEENT: Reports: Pupils Equal, Pupils Reactive Neck: Reports: Supple, Trachea Midline Lungs: Reports: Clear to Auscultation, Normal Respiratory Effort Cardiovascular: Reports: Regular Rate, Regular Rhythm GI/Abdominal Exam: Normal Bowel Sounds, Soft, Non-Tender Rectal (Female) Exam: Normal Exam Back Exam: Reports: Normal Inspection Extremities: Pedal Edema (trace pedal edema) Skin: Reports: Warm, Dry Neurological: Reports: No New Focal Deficit Psy/Mental Status: Reports: Alert EKG INTERPRETATION EKG Interpretation Comments: sinus rhythm
[2018-03-28 12:30] VITALS: BP 135/78
[2018-03-28] MEDS ORDERED: Magnesium Oxide 400 MG Tab PO SCH (18:00)
== END 2018-03-28 13:15 | disposition home or self-care (01) | DRG 292 ==
LOC: MW.ED 02:31 → MW.MS 03:41
PROVIDERS: ADMIT Internal Medicine; ATTEND Internal Medicine
DX: R07.89 Other chest pain (principal); R06.02 Shortness of breath; I11.0 Hypertensive heart disease with heart failure; N30.00 Acute cystitis without hematuria; Z66 Do not resuscitate; I50.9 Heart failure, unspecified; I50.21 Acute systolic (congestive) heart failure; E03.9 Hypothyroidism, unspecified; J44.9 Chronic obstructive pulmonary disease, unspecified; Z87.891 Personal history of nicotine dependence; I42.9 Cardiomyopathy, unspecified; M19.90 Unspecified osteoarthritis, unspecified site; E78.00 Pure hypercholesterolemia, unspecified; Z86.73 Personal history of transient ischemic attack (TIA), and cerebral infarction without residual deficits; R29.6 Repeated falls; Z91.81 History of falling; Z87.440 Personal history of urinary (tract) infections; H54.7 Unspecified visual loss; Z96.649 Presence of unspecified artificial hip joint; Z88.1 Allergy status to other antibiotic agents; Z88.2 Allergy status to sulfonamides; Z88.8 Allergy status to other drugs, medicaments and biological substances; Z79.82 Long term (current) use of aspirin; Z79.52 Long term (current) use of systemic steroids; R09.02 Hypoxemia
CPT/HCPCS: 71045; 80053; 81001; 83735; 83880; 84484; 85025; 85610; 87086; 87088; 87186; 93005; 94640; 96361; 96375; 99285; A9270; J1940; J2930; J7040; 36415; 80048; 84439; 84443; 93306; 96365; J0696; J0744; J1644; J7050; J7060

== ENCOUNTER 2020-03-20 13:48 | Observation (INO) | payer MEDICARE ==
[2020-03-20] MEDS ORDERED: Meclizine 25 MG Tab PO ONE (14:22)
[2020-03-20] MEDS ORDERED: amLODIPine 2.5 MG Tab PO ONE ×2 (14:53→16:20)
--- NOTE | 2020-03-20 15:54 | CT ---
Head CT Technique: Multiple axial sections through the brain were obtained. Intravenous contrast was not utilized. Comparison: Prior head CT study of 08/26/14. Findings: Ventricles along with basal cisterns and sulci over the convexities are moderately prominent. Diminished density is noted within the periventricular and subcortical white matter which is felt compatible with small vessel ischemic demyelination change. Similar findings are seen within the basal ganglia as well as several old lacunar infarcts. No other abnormal parenchymal densities are seen. No evidence of intracranial hemorrhage. No midline shift or mass-effect is seen. Bone window settings were reviewed. Visualized paranasal sinuses show nothing acute. No acute finding is seen within the mastoid sinus. No acute calvarial abnormality is appreciated. Carotid artery calcification is seen within the carotid siphon. Impression: 1. Senescent change as noted above. 2. No acute intracranial abnormality is appreciated. Diagnostic code #2 This report was dictated in MDT
[2020-03-20] MEDS ORDERED: Metoclopramide 10 MG/2 ML SDV IVPUSH ONE (16:20)
[2020-03-20] MEDS ORDERED: LORazepam 0.5 MG Tab PO ONE (17:17)
[2020-03-20] MEDS ORDERED: Metoprolol Tartrate 5 MG/5 ML SDV IVPUSH STA (17:35)
[2020-03-20 17:37] LABS: POTASSIUM,K 3.9 mmol/L (3.5-5.1)
--- NOTE | 2020-03-20 18:03 | EDM.PDOC ---
ED HPI GENERAL MEDICAL PROBLEM - General Chief Complaint: Cardiovascular Problem Stated Complaint: DIZZYNESS Time Seen by Provider: 03/20/20 13:53 Source of Information: Reports: Patient History Limitations: Reports: No Limitations - History of Present Illness INITIAL COMMENTS - FREE TEXT/NARRATIVE: Patient is an 89-year-old female is complaining of severe dizziness which started this morning. Patient denies any headache numbness weakness or paresthesias. She has had vertigo symptoms previously over the years. She has never needed to go to the hospital be treated for this. Patient states she is unable to stand up and ambulate secondary to her vertigo symptoms. She is feeling nauseous has had no vomiting. When she is having vertigo she is complaining of change in her vision. She has taken nothing for current symptoms. She has no chest pain or palpitations. Patient's had no bloody or tarry stools. Onset: Today Location: Reports: Head Severity: Severe Improves with: Reports: Rest Worsens with: Reports: Movement Associated Symptoms: Reports: No Other Symptoms - Related Data Allergies Allergy/AdvReac Type Severity Reaction Status Date / Time azithromycin Allergy Dizziness Verified 03/20/20 13:59 cephalexin [Cephalexin] Allergy Cannot Verified 03/20/20 13:59 Remember fexofenadine Allergy Cannot Verified 03/20/20 13:59 Remember levofloxacin [From Levaquin] Allergy Cannot Verified 03/20/20 13:59 Remember lisinopril Allergy Cough Verified 03/20/20 13:59 methylprednisolone Allergy Other Verified 03/20/20 13:59 metoprolol Allergy Dizziness Verified 03/20/20 13:59 nitrofurantoin Allergy Other Verified 03/20/20 13:59 pravastatin sodium Allergy Cannot Verified 03/20/20 13:59 [From Pravachol] Remember propoxyphene napsylate Allergy Cannot Verified 03/20/20 13:59 [From Darvocet-N 100] Remember salsalate [Salsalate] Allergy Nausea Verified 03/20/20 13:59 solifenacin succinate Allergy Respiratory Verified 03/20/20 13:59 [From Vesicare] Depression Sulfa (Sulfonamide Allergy Cannot Verified 03/20/20 13:59 Antibiotics) Remember sulfamethoxazole Allergy Cannot Verified 03/20/20 13:59 Remember trimethoprim [From Septra] Allergy Mouth Sores Verified 03/20/20 13:59 Home Meds: Home Meds Metoprolol Succinate 50 mg PO DAILY 12/11/14 [History] cloNIDine [Catapres] 0.1 mg PO Q12HR PRN 03/08/17 [History] Solifenacin Succinate [Vesicare] 10 mg PO DAILY 09/23/17 [History] atorvaSTATin [Lipitor] 20 mg PO BEDTIME 09/23/17 [History] Aspirin 81 mg PO DAILY 11/08/17 [History] Losartan [Cozaar] 100 mg PO DAILY 01/19/18 [History] Meclizine [Antivert] 25 mg PO TID PRN 01/19/18 [History] Furosemide [Lasix] 40 mg PO BID 30 Days #60 tab 03/28/18 [Rx] Levothyroxine 125 mcg PO ACBREAKFAST #90 tab 03/28/18 [Rx] Potassium Chloride 20 meq PO DAILY #30 tablet.er 03/28/18 [Rx] cephALEXin [Keflex] 500 mg PO BID #10 cap 03/28/18 [Rx] Past Medical History HEENT History: Reports: Impaired Vision Other HEENT History: wears glasses Cardiovascular History: Reports: Heart Failure, High Cholesterol, Hypertension Other Cardiovascular History: CHF Respiratory History: Reports: None Gastrointestinal History: Reports: None Genitourinary History: Reports: None, UTI, Recurrent [employer] History: Reports: None Musculoskeletal History: Reports: Osteoarthritis Neurological History: Reports: CVA Psychiatric History: Reports: None Endocrine/Metabolic History: Reports: Hypothyroidism Hematologic History: Reports: None Immunologic History: Reports: None Oncologic (Cancer) History: Reports: None Dermatologic History: Reports: None - Infectious Disease History Infectious Disease History: Reports: Chicken Pox, Measles, Mumps - Past Surgical History Head Surgeries/Procedures: Reports: None HEENT Surgical History: Reports: None Cardiovascular Surgical History: Reports: None Respiratory Surgical History: Reports: None GI Surgical History: Reports: None Female Surgical History: Reports: Hysterectomy Endocrine Surgical History: Reports: None Neurological Surgical History: Reports: None Musculoskeletal Surgical History: Reports: Arthroscopic Knee, Hip Replacement Oncologic Surgical History: Reports: None Dermatological Surgical History: Reports: None Social & Family History - Family History Family Medical History: Noncontributory - Tobacco Use Smoking Status *Q: Never Smoker Second Hand Smoke Exposure: No - Caffeine Use Caffeine Use: Reports: Coffee Caffeine Use Comment: 3cups/day - Recreational Drug Use Recreational Drug Use: No - Living Situation & Occupation Living situation: Reports: Occupation: Retired ED ROS GENERAL - Review of Systems Review Of Systems: Comprehensive ROS is negative, except as noted in HPI. ED EXAM, GENERAL - Physical Exam Exam: See Below Exam Limited By: No Limitations General Appearance: Alert, No Apparent Distress Head: Atraumatic, Normocephalic Neck: Normal Inspection, Supple Respiratory/Chest: No Respiratory Distress, Lungs Clear, Normal Breath Sounds Cardiovascular: Regular Rate, Rhythm GI/Abdominal: Soft, Non-Tender, No Organomegaly, No Distention Back Exam: Normal Inspection Extremities: Normal Inspection, No Pedal Edema Neurological: Alert, Oriented, CN II-XII Intact, Other (No nystagmus appreciated.) Psychiatric: Normal Affect Skin Exam: Warm, Dry Course - Vital Signs Text/Narrative:: Patient CT scan of her brain shows several previous small lacunar infarcts and small vessel disease consistent with age but no acute findings. Patient had been given a dose of meclizine which had no effect on her and then 5 mg of Reglan and 0.5 mg lorazepam without improvement of her symptoms. Patient still feels she cannot get out of bed currently. Patient did receive total of 5 mg amlodipine which has brought down her blood pressure mildly. Receiving another 5 mg of pressor. Patient will be admitted to the hospital for intractable vertigo and most likely receive an MRI scan tomorrow rule out cerebellar stroke. Last Recorded V/S: Last Vital Signs Temp 36.2 C 03/20/20 13:56 Pulse 69 03/20/20 17:47 Resp 14 03/20/20 17:47 BP 189/90 H 03/20/20 17:47 Pulse Ox 95 03/20/20 17:47 - Orders/Labs/Meds Orders: Active Orders 24 hr Category Date Time Status Admission Status [Patient Status] [ADT] Stat ADT 03/20/20 17:33 Active EKG 12 Lead [EKG Documentation Completion] [RC] ROUTINE Care 03/20/20 14:04 Active Labs: Laboratory Tests 03/20/20 03/20/20 Range/Units 14:05 14:05 WBC 6.50 (4.0-11.0) K/uL RBC 3.66 L (4.30-5.90) M/uL Hgb 12.0 (12.0-16.0) g/dL Hct 37.3 (36.0-46.0) % MCV 101.9 H (80.0-98.0) fL MCH 32.8 H (27.0-32.0) pg MCHC 32.2 (31.0-37.0) g/dL RDW Std Deviation 51.3 (28.0-62.0) fl RDW Coeff of Tigre 14 (11.0-15.0) % Plt Count 179 (150-400) K/uL MPV 11.30 (7.40-12.00) fL Neut % (Auto) 64.1 (48.0-80.0) % Lymph % (Auto) 19.1 (16.0-40.0) % [place] % (Auto) 11.5 (0.0-15.0) % Eos % (Auto) 4.8 (0.0-7.0) % Baso % (Auto) 0.5 (0.0-1.5) % Neut # (Auto) 4.2 (1.4-5.7) K/uL Lymph # (Auto) 1.2 (0.6-2.4) K/uL [place] # (Auto) 0.8 (0.0-0.8) K/uL Eos # (Auto) 0.3 (0.0-0.7) K/uL Baso # (Auto) 0.0 (0.0-0.1) K/uL Nucleated RBC % 0.0 /100WBC Nucleated RBCs # 0 K/uL Sodium 138 (136-145) mmol/L Potassium 3.9 (3.5-5.1) mmol/L Chloride 101 (98-107) mmol/L Carbon Dioxide 32.0 (21.0-32.0) mmol/L BUN 27 H (7.0-18.0) mg/dL Creatinine 1.2 H (0.6-1.0) mg/dL Est Cr Clr Drug Dosing 22.83 mL/min Estimated GFR (MDRD) 42.3 ml/min Glucose 96 (74-106) mg/dL Calcium 9.1 (8.5-10.1) mg/dL Total Bilirubin 0.5 (0.2-1.0) mg/dL AST 23 (15-37) IU/L ALT 21 (14-63) IU/L Alkaline Phosphatase 116 (46-116) U/L Total Protein 7.0 (6.4-8.2) g/dL Albumin 3.4 (3.4-5.0) g/dL Globulin 3.6 (2.6-4.0) g/dL Albumin/Globulin Ratio 0.9 (0.9-1.6) Meds: Medications Discontinued Medications Generic Name Dose Route Start Last Admin Trade Name Freisael PRN Reason Stop Dose Admin Amlodipine Besylate 2.5 mg 03/20/20 14:53 03/20/20 15:10 Norvasc PO 03/20/20 14:54 2.5 mg ONETIME ONE Administration Amlodipine Besylate 2.5 mg 03/20/20 16:20 03/20/20 16:30 Norvasc PO 03/20/20 16:21 2.5 mg ONETIME ONE Administration Lorazepam 0.5 mg 03/20/20 17:17 03/20/20 17:41 Ativan PO 03/20/20 17:18 0.5 mg ONETIME ONE Administration Meclizine HCl 25 mg 03/20/20 14:22 03/20/20 15:10 Antivert PO 03/20/20 14:23 25 mg ONETIME ONE Administration Metoclopramide HCl 5 mg 03/20/20 16:20 03/20/20 16:30 Reglan IVPUSH 03/20/20 16:21 5 mg ONETIME ONE Administration Metoprolol Tartrate 5 mg 03/20/20 17:35 03/20/20 17:43 Lopressor IVPUSH 03/20/20 17:36 5 mg NOW STA Administration Departure - Departure Time of Disposition: 18:04 Disposition: Refer to Observation Condition: Good Clinical Impression: Vertigo, Hypertensive urgency Referrals: Ruy Roper MD [Primary Care Provider] - Sepsis Event Note - Evaluation Sepsis Screening Result: No Definite Risk - Focused Exam Vital Signs: Vital Signs Temp Pulse Pulse Resp BP BP Pulse Ox 03/20/20 17:47 69 14 189/90 H 95 03/20/20 17:43 69 203/92 H 03/20/20 16:55 84 22 H 189/84 H 94 L 03/20/20 16:30 216/103 H 03/20/20 16:15 67 18 181/82 H 03/20/20 15:10 174/81 H 03/20/20 14:50 71 18 209/101 H 96 03/20/20 13:56 36.2 C 79 18 187/150 H 94 L Date Exam was Performed: 03/20/20 Time Exam was Performed: 17:57 - My Orders Last 24 Hours: My Active Orders 03/20/20 14:04 EKG 12 Lead [EKG Documentation Completion] [RC] ROUTINE - Assessment/Plan Last 24 Hours: My Active Orders 03/20/20 14:04 EKG 12 Lead [EKG Documentation Completion] [RC] ROUTINE
[2020-03-20] MEDS ORDERED: Albuterol/Ipratropium 3.0-0.5 MG/3 ML Neb Soln NEB PRN (18:13)
[2020-03-20] MEDS ORDERED: Ondansetron 4 MG/2 ML SDV IVPUSH PRN (18:13)
[2020-03-20] MEDS ORDERED: hydrALAZINE 20 MG/ML SDV IVPUSH PRN (18:16)
[2020-03-20] MEDS ORDERED: Meclizine 25 MG Tab PO PRN (18:17)
[2020-03-20] MEDS ORDERED: cloNIDine 0.1 MG Tab PO PRN (18:17)
--- NOTE | 2020-03-20 18:23 | PCM.HP.2 ---
H&P History of Present Illness - General Date of Service: 03/20/20 Admit Problem/Dx: Admission Diagnosis/Problem Admission Diagnosis/Problem Vertigo - History of Present Illness Initial Comments - Free Text/Narative: Patient is an 89-year-old female lives at home by herself, with PMH of HTN, CVA , Diastolic CHF, who comes in is complaining of severe dizziness which started this morning as a result she is unable to ambulate safely. Patient has h/o Vertigo and is being managed by meclizine although her vertigo has never been this severe requiring her to come to ER. Her symptoms are associated with dry heaving. patient denied any headache numbness weakness or paresthesias. She has no chest pain or palpitations. Patient's had no bloody or tarry stools. CT scan of the head was obtained showed old chronic vacular changes but no acute findings. Patient received Ativan, Reglan, Ativan but had minimum relief, She was also found to have severely elevated BP, received several IV antihypertensives with come improvement. Patient states she has been complaint with her meds. Patient is being admitted for further management. - Related Data Allergies/Adverse Reactions: Allergies Allergy/AdvReac Type Severity Reaction Status Date / Time azithromycin Allergy Dizziness Verified 03/20/20 13:59 cephalexin [Cephalexin] Allergy Cannot Verified 03/20/20 13:59 Remember fexofenadine Allergy Cannot Verified 03/20/20 13:59 Remember levofloxacin [From Levaquin] Allergy Cannot Verified 03/20/20 13:59 Remember lisinopril Allergy Cough Verified 03/20/20 13:59 methylprednisolone Allergy Other Verified 03/20/20 13:59 metoprolol Allergy Dizziness Verified 03/20/20 13:59 nitrofurantoin Allergy Other Verified 03/20/20 13:59 pravastatin sodium Allergy Cannot Verified 03/20/20 13:59 [From Pravachol] Remember propoxyphene napsylate Allergy Cannot Verified 03/20/20 13:59 [From Darvocet-N 100] Remember salsalate [Salsalate] Allergy Nausea Verified 03/20/20 13:59 solifenacin succinate Allergy Respiratory Verified 03/20/20 13:59 [From Vesicare] Depression Sulfa (Sulfonamide Allergy Cannot Verified 03/20/20 13:59 Antibiotics) Remember sulfamethoxazole Allergy Cannot Verified 03/20/20 13:59 Remember trimethoprim [From Septra] Allergy Mouth Sores Verified 03/20/20 13:59 Home Medications: Home Meds Metoprolol Succinate 50 mg PO DAILY 12/11/14 [History] cloNIDine [Catapres] 0.1 mg PO Q12HR PRN 03/08/17 [History] Solifenacin Succinate [Vesicare] 10 mg PO DAILY 09/23/17 [History] atorvaSTATin [Lipitor] 20 mg PO BEDTIME 09/23/17 [History] Aspirin 81 mg PO DAILY 11/08/17 [History] Losartan [Cozaar] 100 mg PO DAILY 01/19/18 [History] Meclizine [Antivert] 25 mg PO TID PRN 01/19/18 [History] Furosemide [Lasix] 40 mg PO BID 30 Days #60 tab 03/28/18 [Rx] Levothyroxine 125 mcg PO ACBREAKFAST #90 tab 03/28/18 [Rx] Potassium Chloride 20 meq PO DAILY #30 tablet.er 03/28/18 [Rx] cephALEXin [Keflex] 500 mg PO BID #10 cap 03/28/18 [Rx] Past Medical History HEENT History: Reports: Impaired Vision Other HEENT History: wears glasses Cardiovascular History: Reports: Heart Failure, High Cholesterol, Hypertension Other Cardiovascular History: CHF Respiratory History: Reports: None Gastrointestinal History: Reports: None Genitourinary History: Reports: None, UTI, Recurrent [employer] History: Reports: None Musculoskeletal History: Reports: Osteoarthritis Neurological History: Reports: CVA Psychiatric History: Reports: None Endocrine/Metabolic History: Reports: Hypothyroidism Hematologic History: Reports: None Immunologic History: Reports: None Oncologic (Cancer) History: Reports: None Dermatologic History: Reports: None - Infectious Disease History Infectious Disease History: Reports: Chicken Pox, Measles, Mumps - Past Surgical History Head Surgeries/Procedures: Reports: None HEENT Surgical History: Reports: None Cardiovascular Surgical History: Reports: None Respiratory Surgical History: Reports: None GI Surgical History: Reports: None Female Surgical History: Reports: Hysterectomy Endocrine Surgical History: Reports: None Neurological Surgical History: Reports: None Musculoskeletal Surgical History: Reports: Arthroscopic Knee, Hip Replacement Oncologic Surgical History: Reports: None Dermatological Surgical History: Reports: None Social & Family History - Family History Family Medical History: Noncontributory - Tobacco Use Smoking Status *Q: Never Smoker Second Hand Smoke Exposure: No - Caffeine Use Caffeine Use: Reports: Coffee Caffeine Use Comment: 3cups/day - Recreational Drug Use Recreational Drug Use: No - Living Situation & Occupation Living situation: Reports: Occupation: Retired H&P Review of Systems - Review of Systems: Review Of Systems: See Below General: Reports: Weakness. Denies: Fever, Chills, Malaise HEENT: Denies: Contact Lenses, Dysphasia Pulmonary: Denies: Shortness of Breath, Wheezing Cardiovascular: Reports: Lightheadedness. Denies: Chest Pain, Palpitations, Dyspnea on Exertion, Edema, Syncope Gastrointestinal: Denies: Abdominal Pain, Anorexia, Black Stool, Diarrhea, Decreased Appetite Genitourinary: Denies: Dysuria, Frequency, Burning Musculoskeletal: Denies: Neck Pain, Shoulder Pain Skin: Denies: Cyanosis, Jaundice, Mottled Psychiatric: Denies: Confusion, Depression, Mood Lability Neurological: Reports: Dizziness. Denies: Confusion, Headache, Numbness, Paresthesia, Seizure, Syncope Hematologic/Lymphatic: Reports: Easy Bruising. Denies: Anemia, Easy Bleeding Immunologic: Denies: Anaphylaxis, Food Allergy, Environmental Allergy Exam - Exam Exam: See Below - Vital Signs Vital Signs: Last Vital Signs Temp 36.2 C 03/20/20 13:56 Pulse 69 03/20/20 17:47 Resp 14 03/20/20 17:47 BP 189/90 H 03/20/20 17:47 Pulse Ox 95 03/20/20 17:47 Weight: 52.163 kg - Exam Quality Assessment: Supplemental Oxygen General: Alert, Oriented HEENT: Conjunctiva Clear Neck: Supple, Trachea Midline Lungs: Clear to Auscultation, Normal Respiratory Effort Cardiovascular: Regular Rate, Regular Rhythm GI/Abdominal Exam: Normal Bowel Sounds, Soft, Non-Tender Extremities: Normal Inspection, Normal Range of Motion Skin: Warm Neuro Extensive - Mental Status: Alert, Oriented x3, Normal Mood/Affect, Normal Cognition Neuro Extensive - Motor, Sensory, Reflexes: CN II-XII Intact. No: Tongue Deviation (L), Tongue Deviation (R), Dysarthria, Pronator Drift (R), Pronator Drift (L), Motor/Sensory Deficits DTR: 3+: Patella (L), Patella (R) - Patient Data Lab Results Last 24 hrs: Laboratory Results - last 24 hr 03/20/20 03/20/20 Range/Units 14:05 14:05 WBC 6.50 (4.0-11.0) K/uL RBC 3.66 L (4.30-5.90) M/uL Hgb 12.0 (12.0-16.0) g/dL Hct 37.3 (36.0-46.0) % MCV 101.9 H (80.0-98.0) fL MCH 32.8 H (27.0-32.0) pg MCHC 32.2 (31.0-37.0) g/dL RDW Std Deviation 51.3 (28.0-62.0) fl RDW Coeff of Tigre 14 (11.0-15.0) % Plt Count 179 (150-400) K/uL MPV 11.30 (7.40-12.00) fL Neut % (Auto) 64.1 (48.0-80.0) % Lymph % (Auto) 19.1 (16.0-40.0) % [place] % (Auto) 11.5 (0.0-15.0) % Eos % (Auto) 4.8 (0.0-7.0) % Baso % (Auto) 0.5 (0.0-1.5) % Neut # (Auto) 4.2 (1.4-5.7) K/uL Lymph # (Auto) 1.2 (0.6-2.4) K/uL [place] # (Auto) 0.8 (0.0-0.8) K/uL Eos # (Auto) 0.3 (0.0-0.7) K/uL Baso # (Auto) 0.0 (0.0-0.1) K/uL Nucleated RBC % 0.0 /100WBC Nucleated RBCs # 0 K/uL Sodium 138 (136-145) mmol/L Potassium 3.9 (3.5-5.1) mmol/L Chloride 101 (98-107) mmol/L Carbon Dioxide 32.0 (21.0-32.0) mmol/L BUN 27 H (7.0-18.0) mg/dL Creatinine 1.2 H (0.6-1.0) mg/dL Est Cr Clr Drug Dosing 22.83 mL/min Estimated GFR (MDRD) 42.3 ml/min Glucose 96 (74-106) mg/dL Calcium 9.1 (8.5-10.1) mg/dL Total Bilirubin 0.5 (0.2-1.0) mg/dL AST 23 (15-37) IU/L ALT 21 (14-63) IU/L Alkaline Phosphatase 116 (46-116) U/L Total Protein 7.0 (6.4-8.2) g/dL Albumin 3.4 (3.4-5.0) g/dL Globulin 3.6 (2.6-4.0) g/dL Albumin/Globulin Ratio 0.9 (0.9-1.6) Result Diagrams: 03/20/20 14:05 03/20/20 14:05 Sepsis Event Note - Evaluation Sepsis Screening Result: No Definite Risk - Focused Exam Vital Signs: Vital Signs Temp Pulse Pulse Resp BP BP Pulse Ox 03/20/20 17:47 69 14 189/90 H 95 03/20/20 17:43 69 203/92 H 03/20/20 16:55 84 22 H 189/84 H 94 L 03/20/20 16:30 216/103 H 03/20/20 16:15 67 18 181/82 H 03/20/20 15:10 174/81 H 03/20/20 14:50 71 18 209/101 H 96 03/20/20 13:56 36.2 C 79 18 187/150 H 94 L Date Exam was Performed: 03/20/20 Time Exam was Performed: 20:53 - Problem List (1) Hypertensive urgency SNOMED Code(s): 955141130 ICD Code: I16.0 - HYPERTENSIVE URGENCY Status: Acute Current Visit: Yes (2) Vertigo SNOMED Code(s): 993648281 ICD Code: R42 - DIZZINESS AND GIDDINESS Status: Acute Current Visit: Yes (3) CHF, Congestive heart failure SNOMED Code(s): 35859431 ICD Code: I50.9 - HEART FAILURE, UNSPECIFIED Status: Acute Current Visit : No (4) Chronic arthralgias of knees and hips SNOMED Code(s): 17509442, 38853919 ICD Code: M25.551 - PAIN IN RIGHT HIP; M25.552 - PAIN IN LEFT HIP; M25.561 - PAIN IN RIGHT KNEE; M25.562 - PAIN IN LEFT KNEE; G89.29 - OTHER CHRONIC PAIN Status: Acute Current Visit: No (5) HTN, Essential hypertension SNOMED Code(s): 92153630 ICD Code: I10 - ESSENTIAL (PRIMARY) HYPERTENSION Status: Chronic Current Visit: No (6) Hypothyroidism SNOMED Code(s): 94779436 ICD Code: E03.9 - HYPOTHYROIDISM, UNSPECIFIED Status: Chronic Current Visit: No Problem List Initiated/Reviewed/Updated: Yes Orders Last 24hrs: Active Orders 24 hr Category Date Time Status Admission Status [Patient Status] [ADT] Stat ADT 03/20/20 17:33 Active Ambulate [RC] ASDIRECTED Care 03/20/20 18:13 Ordered Antiembolic Devices [RC] PER UNIT ROUTINE Care 03/20/20 18:14 Ordered EKG 12 Lead [EKG Documentation Completion] [RC] ROUTINE Care 03/20/20 14:04 Active Neuro Check [RC] BID Care 03/20/20 18:15 Ordered Oxygen Therapy [RC] PRN Care 03/20/20 18:13 Ordered Pulse Oximetry [RC] PRN Care 03/20/20 18:13 Ordered RT Aerosol Therapy [RC] ASDIRECTED Care 03/20/20 18:14 Ordered VTE/DVT Education [RC] PER UNIT ROUTINE Care 03/20/20 18:13 Ordered Vital Signs [RC] Q4H Care 03/20/20 18:13 Ordered PT Evaluation and Treatment [CONS] Routine Cons 03/20/20 18:13 Ordered Heart Healthy Diet [DIET] Diet 03/20/20 Dinner Ordered Ang Head wo Cont [MR] Routine Exams 03/20/20 18:19 Ordered Ang Neck w wo Cont [MR] Routine Exams 03/20/20 18:19 Ordered Brain wo Cont [MR] Routine Exams 03/20/20 18:19 Ordered Albuterol/Ipratropium [DuoNeb 3.0-0.5 MG/3 ML] Med 03/20/20 18:13 Ordered 3 ml NEB Q4HRRT PRN Aspirin Med 03/21/20 09:00 Ordered 81 mg PO DAILY Furosemide [Lasix] Med 03/20/20 21:00 Ordered 40 mg PO BID Levothyroxine Med 03/21/20 07:30 Ordered 125 mcg PO ACBREAKFAST Losartan Med 03/21/20 09:00 Ordered 100 mg PO DAILY Meclizine [Antivert] Med 03/20/20 18:17 Ordered 25 mg PO TID PRN Ondansetron [Zofran] Med 03/20/20 18:13 Ordered 4 mg IVPUSH Q4H PRN atorvaSTATin [Lipitor] Med 03/20/20 21:00 Ordered 20 mg PO BEDTIME cloNIDine [Catapres] Med 03/20/20 18:17 Ordered 0.1 mg PO Q12HR PRN hydrALAZINE [Apresoline] Med 03/20/20 18:16 Ordered 20 mg IVPUSH Q4H PRN Sequential Compression Device [OM.PC] Per Unit Routine Oth 03/20/20 18:13 Ordered Medication Orders Albuterol/Ipratropium (Duoneb 3.0-0.5 Mg/3 Ml) 3 ml NEB Q4HRRT PRN PRN Reason: Shortness Of Breath/wheezing Aspirin (Aspirin) 81 mg PO DAILY [facility] Atorvastatin Calcium (Lipitor) 20 mg PO BEDTIME [facility] Clonidine HCl (Catapres) 0.1 mg PO Q12HR PRN PRN Reason: Hypertension Furosemide (Lasix) 40 mg PO BID [facility] Hydralazine HCl (Apresoline) 20 mg IVPUSH Q4H PRN PRN Reason: Hypertension Levothyroxine Sodium (Levothyroxine) 125 mcg PO ACBREAKFAST [facility] Meclizine HCl (Antivert) 25 mg PO TID PRN PRN Reason: Dizziness Non-Formulary Medication (Losartan) 100 mg PO DAILY [facility] Ondansetron HCl (Zofran) 4 mg IVPUSH Q4H PRN PRN Reason: Nausea/Vomiting Assessment/Plan Comment:: 89 y/o F admitted for Vertigo, uncontrolled HTN CT monet head negative for acute finding 2D ECHO obtained last year showed diastolic dysfunction, Normal EF Will obtain MRI/MRA brain Will allow permissive HTN Resume home meds as appropriate Trend creatinine Heart healthy diet SCD for DVT ppx ASA, statin PT for ambulation assessment
[2020-03-20] MEDS ORDERED: Metoprolol Tartrate 5 MG/5 ML SDV IVPUSH ONE (18:52)
[2020-03-20] MEDS: cloNIDine 0.1 MG Tab PO SCH ×2 (20:33→21:59)
[2020-03-20] MEDS: atorvaSTATin 20 MG Tab PO SCH (20:34)
[2020-03-20] MEDS ORDERED: Furosemide 40 MG Tab PO SCH (21:00)
[2020-03-20] MEDS: Aspirin 81 MG Tab.Chew PO SCH (21:51)
[2020-03-21 06:32] LABS: CARBON DIOXIDE,CO2 29.6 mmol/L (21.0-32.0); POTASSIUM,K 3.1 mmol/L (3.5-5.1)
[2020-03-21] MEDS: Levothyroxine 125 MCG Tab PO SCH (06:45)
[2020-03-21] MEDS ORDERED: Potassium Chloride 20 MEQ Tab.ER PO ONE (07:58)
[2020-03-21] MEDS ORDERED: Magnesium Sulfate/Water 2 GM in Premix Bag 1 BAG IV ONE (07:58)
[2020-03-21] MEDS: Aspirin 81 MG Tab.Chew PO SCH (08:26)
[2020-03-21] MEDS ORDERED: Aspirin 81 MG Tab.Chew PO SCH (09:00)
[2020-03-21] MEDS ORDERED: Losartan 50 MG Tab PO SCH (09:00)
--- NOTE | 2020-03-21 09:33 | PCM.PN ---
- General Info Date of Service: 03/21/20 Admission Dx/Problem (Free Text): Admission Diagnosis/Problem Admission Diagnosis/Problem Vertigo Subjective Update: Continues to feel dizzy, no real change from last night. No chest pain or SOB. No focal neurological deficits. Functional Status: Reports: Pain Controlled, Tolerating Diet, Ambulating, Urinating - Review of Systems Pulmonary: Reports: No Symptoms. Denies: Shortness of Breath Cardiovascular: Reports: No Symptoms. Denies: Chest Pain Gastrointestinal: Reports: No Symptoms. Denies: Abdominal Pain, Nausea, Vomiting Genitourinary: Reports: No Symptoms. Denies: Dysuria, Frequency, Burning Skin: Reports: No Symptoms Neurological: Reports: Dizziness Psychiatric: Reports: No Symptoms - Patient Data Vitals - Most Recent: Last Vital Signs Temp 98.2 F 03/21/20 08:02 Pulse 73 03/21/20 08:02 Resp 15 03/21/20 08:02 BP 112/55 L 03/21/20 08:02 Pulse Ox 98 03/21/20 08:02 Weight - Most Recent: 52.163 kg I&O - Last 24 Hours: Intake & Output 03/20/20 03/21/20 03/21/20 22:59 06:59 14:59 Intake Total 600 Output Total 500 Balance 100 Lab Results Last 24 Hours: Laboratory Results - last 24 hr 03/20/20 03/20/20 03/20/20 Range/Units 14:05 14:05 14:05 WBC 6.50 (4.0-11.0) K/uL RBC 3.66 L (4.30-5.90) M/uL Hgb 12.0 (12.0-16.0) g/dL Hct 37.3 (36.0-46.0) % MCV 101.9 H (80.0-98.0) fL MCH 32.8 H (27.0-32.0) pg MCHC 32.2 (31.0-37.0) g/dL RDW Std Deviation 51.3 (28.0-62.0) fl RDW Coeff of Tigre 14 (11.0-15.0) % Plt Count 179 (150-400) K/uL MPV 11.30 (7.40-12.00) fL Neut % (Auto) 64.1 (48.0-80.0) % Lymph % (Auto) 19.1 (16.0-40.0) % [place] % (Auto) 11.5 (0.0-15.0) % Eos % (Auto) 4.8 (0.0-7.0) % Baso % (Auto) 0.5 (0.0-1.5) % Neut # (Auto) 4.2 (1.4-5.7) K/uL Lymph # (Auto) 1.2 (0.6-2.4) K/uL [place] # (Auto) 0.8 (0.0-0.8) K/uL Eos # (Auto) 0.3 (0.0-0.7) K/uL Baso # (Auto) 0.0 (0.0-0.1) K/uL Nucleated RBC % 0.0 /100WBC Nucleated RBCs # 0 K/uL Sodium 138 (136-145) mmol/L Potassium 3.9 (3.5-5.1) mmol/L Chloride 101 (98-107) mmol/L Carbon Dioxide 32.0 (21.0-32.0) mmol/L BUN 27 H (7.0-18.0) mg/dL Creatinine 1.2 H (0.6-1.0) mg/dL Est Cr Clr Drug Dosing 22.83 mL/min Estimated GFR (MDRD) 42.3 ml/min Glucose 96 (74-106) mg/dL Calcium 9.1 (8.5-10.1) mg/dL Phosphorus (2.6-4.7) mg/dL Magnesium 2.1 (1.8-2.4) mg/dL Total Bilirubin 0.5 (0.2-1.0) mg/dL AST 23 (15-37) IU/L ALT 21 (14-63) IU/L Alkaline Phosphatase 116 (46-116) U/L Total Protein 7.0 (6.4-8.2) g/dL Albumin 3.4 (3.4-5.0) g/dL Globulin 3.6 (2.6-4.0) g/dL Albumin/Globulin Ratio 0.9 (0.9-1.6) Urine Color Urine Appearance Urine pH (5.0-8.0) Ur Specific [place] (1.001-1.035) Urine Protein (NEGATIVE) mg/dL Urine Glucose (UA) (NEGATIVE) mg/dL Urine Ketones (NEGATIVE) mg/dL Urine Occult Blood (NEGATIVE) Urine Nitrite (NEGATIVE) Urine Bilirubin (NEGATIVE) Urine Urobilinogen (<2.0) EU/dL Ur Leukocyte Esterase (NEGATIVE) 03/21/20 03/21/20 Range/Units 05:00 05:20 WBC (4.0-11.0) K/uL RBC (4.30-5.90) M/uL Hgb (12.0-16.0) g/dL Hct (36.0-46.0) % MCV (80.0-98.0) fL MCH (27.0-32.0) pg MCHC (31.0-37.0) g/dL RDW Std Deviation (28.0-62.0) fl RDW Coeff of [place]re (11.0-15.0) % Plt Count (150-400) K/uL MPV (7.40-12.00) fL Neut % (Auto) (48.0-80.0) % Lymph % (Auto) (16.0-40.0) % [place] % (Auto) (0.0-15.0) % Eos % (Auto) (0.0-7.0) % Baso % (Auto) (0.0-1.5) % Neut # (Auto) (1.4-5.7) K/uL Lymph # (Auto) (0.6-2.4) K/uL [place] # (Auto) (0.0-0.8) K/uL Eos # (Auto) (0.0-0.7) K/uL Baso # (Auto) (0.0-0.1) K/uL Nucleated RBC % /100WBC Nucleated RBCs # K/uL Sodium 136 (136-145) mmol/L Potassium 3.1 L (3.5-5.1) mmol/L Chloride 96 L (98-107) mmol/L Carbon Dioxide 29.6 (21.0-32.0) mmol/L BUN 20 H (7.0-18.0) mg/dL Creatinine 0.9 (0.6-1.0) mg/dL Est Cr Clr Drug Dosing 30.44 mL/min Estimated GFR (MDRD) 59.0 ml/min Glucose 115 H (74-106) mg/dL Calcium 8.7 (8.5-10.1) mg/dL Phosphorus 3.1 (2.6-4.7) mg/dL Magnesium 1.7 L (1.8-2.4) mg/dL Total Bilirubin (0.2-1.0) mg/dL AST (15-37) IU/L ALT (14-63) IU/L Alkaline Phosphatase (46-116) U/L Total Protein (6.4-8.2) g/dL Albumin (3.4-5.0) g/dL Globulin (2.6-4.0) g/dL Albumin/Globulin Ratio (0.9-1.6) Urine Color YELLOW Urine Appearance CLEAR Urine pH 7.0 (5.0-8.0) Ur Specific [place] 1.015 (1.001-1.035) Urine Protein NEGATIVE (NEGATIVE) mg/dL Urine Glucose (UA) NEGATIVE (NEGATIVE) mg/dL Urine Ketones TRACE H (NEGATIVE) mg/dL Urine Occult Blood NEGATIVE (NEGATIVE) Urine Nitrite NEGATIVE (NEGATIVE) Urine Bilirubin NEGATIVE (NEGATIVE) Urine Urobilinogen 0.2 (<2.0) EU/dL Ur Leukocyte Esterase NEGATIVE (NEGATIVE) Med Orders - Current: Current Medications Albuterol/Ipratropium (Duoneb 3.0-0.5 Mg/3 Ml) 3 ml NEB Q4HRRT PRN PRN Reason: Shortness Of Breath/wheezing Aspirin (Aspirin) 81 mg PO DAILY [facility] Last Admin: 03/21/20 08:26 Dose: 81 mg Atorvastatin Calcium (Lipitor) 20 mg PO BEDTIME [facility] Last Admin: 03/20/20 20:34 Dose: 20 mg Hydralazine HCl (Apresoline) 20 mg IVPUSH Q4H PRN PRN Reason: Hypertension Last Admin: 03/21/20 05:43 Dose: 20 mg Levothyroxine Sodium (Levothyroxine) 125 mcg PO ACBREAKFAST [facility] Last Admin: 03/21/20 06:45 Dose: 125 mcg Meclizine HCl (Antivert) 25 mg PO TID PRN PRN Reason: Dizziness Last Admin: 03/21/20 05:42 Dose: 25 mg Ondansetron HCl (Zofran) 4 mg IVPUSH Q4H PRN PRN Reason: Nausea/Vomiting Last Admin: 03/21/20 06:49 Dose: 4 mg Discontinued Medications Amlodipine Besylate (Norvasc) 2.5 mg PO ONETIME ONE Stop: 03/20/20 14:54 Last Admin: 03/20/20 15:10 Dose: 2.5 mg Amlodipine Besylate (Norvasc) 2.5 mg PO ONETIME ONE Stop: 03/20/20 16:21 Last Admin: 03/20/20 16:30 Dose: 2.5 mg Aspirin (Aspirin) 81 mg PO DAILY [facility] Clonidine HCl (Catapres) 0.1 mg PO Q12HR PRN PRN Reason: Hypertension Clonidine HCl (Catapres) 0.1 mg PO Q12HR [facility] Last Admin: 03/20/20 21:59 Dose: Not Given Furosemide (Lasix) 40 mg PO BID [facility] Last Admin: 03/20/20 20:34 Dose: 40 mg Magnesium Sulfate 2 gm/ Premix 50 mls @ 50 mls/hr IV ONETIME ONE Stop: 03/21/20 08:57 Last Admin: 03/21/20 08:34 Dose: 50 mls/hr Lorazepam (Ativan) 0.5 mg PO ONETIME ONE Stop: 03/20/20 17:18 Last Admin: 03/20/20 17:41 Dose: 0.5 mg Losartan Potassium (Cozaar) 100 mg PO DAILY [facility] Meclizine HCl (Antivert) 25 mg PO ONETIME ONE Stop: 03/20/20 14:23 Last Admin: 03/20/20 15:10 Dose: 25 mg Metoclopramide HCl (Reglan) 5 mg IVPUSH ONETIME ONE Stop: 03/20/20 16:21 Last Admin: 03/20/20 16:30 Dose: 5 mg Metoprolol Tartrate (Lopressor) 5 mg IVPUSH NOW STA Stop: 03/20/20 17:36 Last Admin: 03/20/20 17:43 Dose: 5 mg Metoprolol Tartrate (Lopressor) 5 mg IVPUSH ONETIME ONE Stop: 03/20/20 18:53 Last Admin: 03/20/20 19:13 Dose: 5 mg Potassium Chloride (Klor-Con M20) 40 meq PO ONETIME ONE Stop: 03/21/20 07:59 Last Admin: 05/19/20 08:26 Dose: 40 meq - Exam General: Alert, Oriented, Cooperative, No Acute Distress Neck: Supple, No JVD. No: Carotid Bruit Lungs: Clear to Auscultation, Normal Respiratory Effort Cardiovascular: Regular Rate, Regular Rhythm GI/Abdominal Exam: Normal Bowel Sounds, Non-Tender Extremities: Normal Inspection, Normal Range of Motion, Non-Tender, No Pedal Edema Neurological: No New Focal Deficit, Normal Gait, Normal Speech, Strength Equal Bilateral Psy/Mental Status: Alert, Normal Affect, Normal Mood Sepsis Event Note - Evaluation Sepsis Screening Result: No Definite Risk - Focused Exam Vital Signs: Vital Signs Temp Pulse Resp BP BP BP Pulse Ox 03/21/20 08:02 98.2 F 73 15 112/55 L 98 03/21/20 06:44 78 18 107/47 L 94 L 03/21/20 05:36 76 182/84 H 03/21/20 04:00 98.3 F 72 16 181/77 H 93 L 03/21/20 00:00 97.9 F 71 18 141/69 H 95 03/20/20 21:59 147/70 H 03/20/20 21:53 70 17 147/70 H 95 Date Exam was Performed: 03/21/20 Time Exam was Performed: 13:07 - Problem List & Annotations (1) Vertigo SNOMED Code(s): 903539070 Code(s): R42 - DIZZINESS AND GIDDINESS Status: Acute Current Visit: Yes (2) History of CVA (cerebrovascular accident) SNOMED Code(s): 056124205 Code(s): Z86.73 - PRSNL HX OF TIA (TIA), AND CEREB INFRC W/O RESID DEFICITS Status: Chronic Current Visit: Yes (3) Hx of dizziness SNOMED Code(s): 195170447 Code(s): Z87.898 - PERSONAL HISTORY OF OTHER SPECIFIED CONDITIONS Status: Chronic Current Visit: Yes (4) Hypertensive urgency SNOMED Code(s): 109055357 Code(s): I16.0 - HYPERTENSIVE URGENCY Status: Chronic Current Visit: Yes (5) HTN, Essential hypertension SNOMED Code(s): 35837465 Code(s): I10 - ESSENTIAL (PRIMARY) HYPERTENSION Status: Chronic Current Visit: No (6) Hypothyroidism SNOMED Code(s): 73530763 Code(s): E03.9 - HYPOTHYROIDISM, UNSPECIFIED Status: Chronic Current Visit: No - Problem List Review Problem List Initiated/Reviewed/Updated: Yes - Plan Plan:: 89 y/o F admitted for Vertigo, uncontrolled HTN 1. Vertigo: - Hx of this in the past, normally goes away on its on - PT consulted for vestibular work , hold Meclizine - CT in ED negative - MRI/MRA brain ordered for today to help R/O CVA - Permissive HTN for now, slow to restart medications. 2. Uncontrolled HTN - Will allow permissive HTN - ASA, statin 3. Electrolyte abnormalities - Replace K and Mg today, monitor in am. 4. CHF, stable - Monitor no current exacerbation VTE prophylaxis: Heparin Dispo: 1-2 days
[2020-03-21] MEDS ORDERED: LORazepam 2 MG/ML SDV IVPUSH ONE (10:17)
[2020-03-21] MEDS ORDERED: LORazepam 2 MG/ML SDV IVPUSH PRN (11:04)
[2020-03-21] MEDS ORDERED: Gadobenate Dimeglumine 529 MG/ML 20 ML SDV IVPUSH STA (14:28)
[2020-03-21] MEDS: Heparin Sodium 5,000 Units/ML Vial SUBCUT SCH (15:10)
--- NOTE | 2020-03-21 15:57 | MR ---
MR angiogram of brain Technique: [id number] MR angiogram study was obtained centered to the [place]. Multiple MIP images were obtained in multiple projections. Findings: Distal vertebral arteries are patent into the basilar artery. Posterior cerebral arteries are patent. Carotid siphons are patent. Normal flow into the middle cerebral arteries and anterior cerebral arteries are noted. Left anterior cerebral artery is supplied from the right carotid artery. Impression: 1. Left anterior cerebral circulation supplied by the right carotid artery. 2. No additional abnormality is seen on MR angiogram study which is centered to the [place]. Diagnostic code #2 This report was dictated in MDT
--- NOTE | 2020-03-21 16:01 | MR ---
MR angiogram of neck (without and with intravenous contrast) Findings: Phase contrast MR angiogram study was obtained of the neck. Postcontrast MR angiogram study was obtained. Multiple MIP images were obtained in multiple projections. Findings: Both common carotid arteries are widely patent. Internal carotid arteries are widely patent. No focal stenosis is seen. No dissection is noted. Both vertebral arteries are patent. No focal stenosis or dissection is seen. Impression: 1. No abnormality is seen on MR angiogram of the neck. Diagnostic code #1 This report was dictated in MDT
--- NOTE | 2020-03-21 16:01 | MR ---
MR angiogram of brain Technique: T1 sagittal and coronal; T1, T2, FLAIR and diffusion axial images were obtained to the brain. Comparison: Prior head CT study performed on 03/20/20. Findings: Ventricles along with basal cisterns and sulci over the convexities are moderately prominent. Diffuse increased signal is seen within the periventricular and subcortical white matter compatible with rather prominent small vessel ischemic demyelination change. Several old lacunar infarcts are noted within the basal ganglia. 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 Mild small vessel ischemic demyelination change is seen within the allen. No acute diffusion abnormalities are appreciated. No midline shift or mass-effect is appreciated. Impression: 1. Diffuse senescent change as described above. 2. No acute diffusion abnormalities are appreciated. Diagnostic code #2 This report was dictated in MDT
[2020-03-21] MEDS ORDERED: ALPRAZolam 0.25 MG Tab PO PRN (17:50)
[2020-03-21] MEDS: atorvaSTATin 20 MG Tab PO SCH (21:25)
[2020-03-22] MEDS: Heparin Sodium 5,000 Units/ML Vial SUBCUT SCH (00:55)
[2020-03-22 06:01] LABS: CARBON DIOXIDE,CO2 31.6 mmol/L (21.0-32.0); POTASSIUM,K 3.9 mmol/L (3.5-5.1)
[2020-03-22] MEDS ORDERED: Levothyroxine 125 MCG Tab PO SCH (07:30)
[2020-03-22] MEDS: Aspirin 81 MG Tab.Chew PO SCH (08:01)
[2020-03-22] MEDS: Levothyroxine 125 MCG Tab PO SCH (08:01)
[2020-03-22 08:03] VITALS: BP 172/74; PULSE 72
[2020-03-22] MEDS ORDERED: Losartan 50 MG Tab PO SCH (09:00)
[2020-03-22] MEDS ORDERED: Metoprolol Succinate 50 MG Tab.ER PO SCH (09:00)
--- NOTE | 2020-03-22 12:42 | PCM.DCSUM1 ---
Discharge Summary - Hospital Course Brief History: Patient is an 89-year-old female lives at home by herself, with PMH of HTN, CVA, Diastolic CHF, who comes in is complaining of severe dizziness which started this morning as a result she is unable to ambulate safely. Patient has h/o Vertigo and is being managed by meclizine although her vertigo has never been this severe requiring her to come to ER. Her symptoms are associated with dry heaving. patient denied any headache numbness weakness or paresthesias. She has no chest pain or palpitations. Patient's had no bloody or tarry stools. CT scan of the head was obtained showed old chronic vacular changes but no acute findings. Patient received Ativan, Reglan, Ativan but had minimum relief, She was also found to have severely elevated BP, received several IV antihypertensives with come improvement. Patient states she has been complaint with her meds. Patient is being admitted for further management. Diagnosis: Stroke: No - Discharge Data Discharge Date: 03/22/20 Discharge Disposition: Home, W Home Health Agency 06 Condition: Good - Referral to Home Health Date of Face to Face Encounter: 03/22/20 Reason for Homebound Status: She is in need of caregiver to help her leave the home due to dizziness currently. Primary Care Physician: Ruy Roper MD Skilled Need: She is in need of [facility] care to monitor blood pressures and dizziness. She is also in need of PT evaluation and treatment due to dizziness and deconditioning from hospitalization. - Discharge Diagnosis/Problem(s) (1) Vertigo SNOMED Code(s): 180666072 ICD Code: R42 - DIZZINESS AND GIDDINESS Status: Acute (2) History of CVA (cerebrovascular accident) SNOMED Code(s): 427115021 ICD Code: Z86.73 - PRSNL HX OF TIA (TIA), AND CEREB INFRC W/O RESID DEFICITS Status: Chronic (3) Hx of dizziness SNOMED Code(s): 063008994 ICD Code: Z87.898 - PERSONAL HISTORY OF OTHER SPECIFIED CONDITIONS Status: Chronic (4) Hypertensive urgency SNOMED Code(s): 033346932 ICD Code: I16.0 - HYPERTENSIVE URGENCY Status: Chronic (5) HTN, Essential hypertension SNOMED Code(s): 28190638 ICD Code: I10 - ESSENTIAL (PRIMARY) HYPERTENSION Status: Chronic (6) Hypothyroidism SNOMED Code(s): 48797585 ICD Code: E03.9 - HYPOTHYROIDISM, UNSPECIFIED Status: Chronic - Patient Summary/Data Consults: Consultations 03/20/20 18:13 PT Evaluation and Treatment [CONS] Routine Hospital Course: Admitting Diagnoses: Vertigo HTN urgency Discharge Diagnoses: Vertigo HTN urgency- resolved Other pmh Hx CVA HTN Hypothyroidism CHF Saba was admitted for vertigo and HTN urgency. BP was controlled, MRI/MRA head and neck obtained to rule out CVA. No signs of this noted. Dizziness improved mostly, but Saba felt eager to be discharged. SHe reports normall the dizziness improves after a couple days and feels it will continue to improve. PT evaluated her and noted she has some postural blood pressure change. Gave her some exercises and cautioned her on slow position change transitions. She will be conitnued on all her previously prescribed home medications. She is to return to ED or clinic if concerns should arise. She will see PCP in 1 week as well as Home Health referral. - Patient Instructions Diet: Heart Healthy Diet Activity: As Tolerated Driving: Do Not Drive Showering/Bathing: May Shower Notify Provider of: Fever, Increased Pain, Swelling and Redness, Drainage, Nausea and/or Vomiting Other/Special Instructions: Slow position changes from laying down and to sitting - Discharge Plan *PRESCRIPTION DRUG MONITORING PROGRAM REVIEWED*: Not Applicable *COPY OF PRESCRIPTION DRUG MONITORING REPORT IN PATIENT YANE: Not Applicable Home Medications: Home Meds Metoprolol Succinate 50 mg PO DAILY 12/11/14 [History] cloNIDine [Catapres] 0.1 mg PO Q12HR PRN 03/08/17 [History] Solifenacin Succinate [Vesicare] 10 mg PO DAILY 09/23/17 [History] atorvaSTATin [Lipitor] 20 mg PO BEDTIME 09/23/17 [History] Aspirin 81 mg PO DAILY 11/08/17 [History] Losartan [Cozaar] 100 mg PO DAILY 01/19/18 [History] Meclizine [Antivert] 25 mg PO TID PRN 01/19/18 [History] Furosemide [Lasix] 40 mg PO BID 30 Days #60 tab 03/28/18 [Rx] Potassium Chloride 20 meq PO DAILY #30 tablet.er 03/28/18 [Rx] ALPRAZolam [Alprazolam] 0.25 mg PO BID PRN 03/21/20 [History] Cholecalciferol (Vitamin D3) [Vitamin D3] 10,000 unit PO DAILY 03/21/20 [History ] Levothyroxine 125 mcg PO ACBREAKFAST 03/21/20 [History] Oxygen Therapy Mode: Room Air Patient Handouts: Vertigo, [id number] Referrals: Ruy Roper MD [Primary Care Provider] - 03/30/20 12:30 pm (Please arrive 1215 with identification and insurance cards.) - Discharge Summary/Plan Comment DC Time >30 min.: No - Patient Data Vitals - Most Recent: Last Vital Signs Temp 98.8 F 03/22/20 07:11 Pulse 72 03/22/20 08:02 Resp 18 03/22/20 07:11 BP 172/74 H 03/22/20 08:02 Pulse Ox 93 L 03/22/20 07:00 Weight - Most Recent: 52.163 kg I&O - Last 24 hours: Intake & Output 03/21/20 03/22/20 03/22/20 22:59 06:59 14:59 Intake Total 1056 650 Output Total 600 750 Balance 456 -100 Lab Results - Last 24 hrs: Laboratory Results - last 24 hr 03/22/20 Range/Units 05:05 Sodium 133 L (136-145) mmol/L Potassium 3.9 (3.5-5.1) mmol/L Chloride 98 (98-107) mmol/L Carbon Dioxide 31.6 (21.0-32.0) mmol/L BUN 25 H (7.0-18.0) mg/dL Creatinine 1.0 (0.6-1.0) mg/dL Est Cr Clr Drug Dosing 27.39 mL/min Estimated GFR (MDRD) 52.2 ml/min Glucose 92 (74-106) mg/dL Calcium 9.0 (8.5-10.1) mg/dL Magnesium 2.4 (1.8-2.4) mg/dL Med Orders - Current: Current Medications Albuterol/Ipratropium (Duoneb 3.0-0.5 Mg/3 Ml) 3 ml NEB Q4HRRT PRN PRN Reason: Shortness Of Breath/wheezing Alprazolam (Xanax) 0.25 mg PO BID PRN PRN Reason: Anxiety Aspirin (Aspirin) 81 mg PO DAILY [facility] Last Admin: 03/22/20 08:01 Dose: 81 mg Atorvastatin Calcium (Lipitor) 20 mg PO BEDTIME [facility] Last Admin: 03/21/20 21:25 Dose: 20 mg Heparin Sodium (Porcine) (Heparin Sodium) 5,000 units SUBCUT Q12H [facility] Last Admin: 03/22/20 00:55 Dose: 5,000 units Levothyroxine Sodium (Levothyroxine) 125 mcg PO ACBREAKFAST [facility] Last Admin: 03/22/20 08:01 Dose: 125 mcg Losartan Potassium (Cozaar) 100 mg PO DAILY [facility] Last Admin: 03/22/20 08:02 Dose: 100 mg Metoprolol Succinate (Toprol Xl) 50 mg PO DAILY [facility] Last Admin: 03/22/20 08:02 Dose: 50 mg Ondansetron HCl (Zofran) 4 mg IVPUSH Q4H PRN PRN Reason: Nausea/Vomiting Last Admin: 03/21/20 06:49 Dose: 4 mg Discontinued Medications Amlodipine Besylate (Norvasc) 2.5 mg PO ONETIME ONE Stop: 03/20/20 14:54 Last Admin: 03/20/20 15:10 Dose: 2.5 mg Amlodipine Besylate (Norvasc) 2.5 mg PO ONETIME ONE Stop: 03/20/20 16:21 Last Admin: 03/20/20 16:30 Dose: 2.5 mg Aspirin (Aspirin) 81 mg PO DAILY [facility] Clonidine HCl (Catapres) 0.1 mg PO Q12HR PRN PRN Reason: Hypertension Clonidine HCl (Catapres) 0.1 mg PO Q12HR [facility] Last Admin: 03/20/20 21:59 Dose: Not Given Furosemide (Lasix) 40 mg PO BID [facility] Last Admin: 03/20/20 20:34 Dose: 40 mg Gadobenate Dimeglumine (Multihance) 20 ml IVPUSH ONETIME STA Stop: 03/21/20 14:29 Last Admin: 03/21/20 15:01 Dose: 10 ml Hydralazine HCl (Apresoline) 20 mg IVPUSH Q4H PRN PRN Reason: Hypertension Last Admin: 03/21/20 05:43 Dose: 20 mg Magnesium Sulfate 2 gm/ Premix 50 mls @ 50 mls/hr IV ONETIME ONE Stop: 03/21/20 08:57 Last Admin: 03/21/20 08:34 Dose: 50 mls/hr Levothyroxine Sodium (Levothyroxine) 125 mcg PO ACBREAKFAST [facility] Last Admin: 03/22/20 07:53 Dose: Not Given Lorazepam (Ativan) 0.5 mg PO ONETIME ONE Stop: 03/20/20 17:18 Last Admin: 03/20/20 17:41 Dose: 0.5 mg Lorazepam (Ativan) 0.25 mg IVPUSH ONCALL ONE Stop: 03/21/20 10:18 Last Admin: 03/21/20 11:30 Dose: Not Given Lorazepam (Ativan) 0.25 mg IVPUSH ONCALL PRN PRN Reason: Prior to MRI Last Admin: 03/21/20 12:29 Dose: 0.25 mg Losartan Potassium (Cozaar) 100 mg PO DAILY [facility] Meclizine HCl (Antivert) 25 mg PO ONETIME ONE Stop: 03/20/20 14:23 Last Admin: 03/20/20 15:10 Dose: 25 mg Meclizine HCl (Antivert) 25 mg PO TID PRN PRN Reason: Dizziness Last Admin: 03/21/20 05:42 Dose: 25 mg Metoclopramide HCl (Reglan) 5 mg IVPUSH ONETIME ONE Stop: 03/20/20 16:21 Last Admin: 03/20/20 16:30 Dose: 5 mg Metoprolol Tartrate (Lopressor) 5 mg IVPUSH NOW STA Stop: 03/20/20 17:36 Last Admin: 03/20/20 17:43 Dose: 5 mg Metoprolol Tartrate (Lopressor) 5 mg IVPUSH ONETIME ONE Stop: 03/20/20 18:53 Last Admin: 03/20/20 19:13 Dose: 5 mg Potassium Chloride (Klor-Con M20) 40 meq PO ONETIME ONE Stop: 03/21/20 07:59 Last Admin: 03/21/20 08:26 Dose: 40 meq - Exam General: Reports: Alert, Oriented, Cooperative, No Acute Distress Lungs: Reports: Clear to Auscultation, Normal Respiratory Effort Cardiovascular: Reports: Regular Rate, Regular Rhythm GI/Abdominal Exam: Normal Bowel Sounds, Soft, Non-Tender Neurological: Reports: No New Focal Deficit Psy/Mental Status: Reports: Alert, Normal Affect, Normal Mood
== END 2020-03-22 13:18 | disposition home health service (06) ==
LOC: MW.ED 13:48 → MW.MS 17:33
PROVIDERS: ADMIT Student in an Organized Health Care Education/Training Program; ATTEND Student in an Organized Health Care Education/Training Program
DX: I16.0 Hypertensive urgency (principal); I11.0 Hypertensive heart disease with heart failure; I50.30 Unspecified diastolic (congestive) heart failure; E03.9 Hypothyroidism, unspecified; M25.562 Pain in left knee; M25.561 Pain in right knee; M25.552 Pain in left hip; M25.551 Pain in right hip; G89.29 Other chronic pain; E87.8 Other disorders of electrolyte and fluid balance, not elsewhere classified; Z79.82 Long term (current) use of aspirin; Z86.73 Personal history of transient ischemic attack (TIA), and cerebral infarction without residual deficits; Z79.899 Other long term (current) drug therapy; Z88.1 Allergy status to other antibiotic agents; Z88.8 Allergy status to other drugs, medicaments and biological substances; Z88.2 Allergy status to sulfonamides
CPT/HCPCS: 36415; 70450; 70544; 70549; 70553; 80048; 80053; 81003; 83735; 84100; 85025; 93005; 96374; 96375; 96376; 97161; 99285; A9270; A9577; J0360; J1644; J2060; J2405; J2765; J3475; J3490; 99283